=== PATIENT | male | born 1990 | race American Indian/Alaskan Native ===

== ENCOUNTER 2019-12-12 05:12 | Emergency (ER) | payer MEDICAID ==
[2019-12-12] MEDS ORDERED: MVI IV ONE ×4 (05:13)
[2019-12-12] MEDS ORDERED: Pantoprazole 40 MG Vial IV ONE (05:13)
[2019-12-12] MEDS ORDERED: [UNRECOGNIZED DRUG - OTHER] IV ONE ×4 (05:13)
[2019-12-12] MEDS ORDERED: VITAMIN K IV ONE ×4 (05:13)
[2019-12-12] MEDS ORDERED: Ondansetron 4 MG/2 ML SDV IVPUSH ONE (05:13)
[2019-12-12] MEDS ORDERED: FOLIC ACID IV ONE ×4 (05:13)
[2019-12-12] MEDS ORDERED: THIAMINE IV ONE ×4 (05:13)
[2019-12-12] MEDS ORDERED: Folic Acid 50 MG/10 ML MDV ONE (05:40)
[2019-12-12] MEDS ORDERED: MVI, Adult with Vitamin K 10 ML SDV ONE (05:41)
[2019-12-12] MEDS ORDERED: Lactated Ringers 1,000 ML ONE (05:41)
[2019-12-12] MEDS ORDERED: Pantoprazole 40 MG Vial ONE (05:41)
[2019-12-12] MEDS ORDERED: Ondansetron 4 MG/2 ML SDV ONE (05:41)
[2019-12-12] MEDS ORDERED: Thiamine 200 MG/2 ML MDV ONE (05:41)
[2019-12-12 09:18] LABS: ANION GAP 15.7 mEq/L (7-13); CHLORIDE,CL 101 mmol/L (98-107); SODIUM,NA 141 mmol/L (136-145)
== END 2019-12-12 07:10 | disposition home or self-care (01) ==
LOC: DL.ED 05:12
DX: K29.20 Alcoholic gastritis without bleeding (principal); F10.10 Alcohol abuse, uncomplicated
CPT/HCPCS: 36415; 80053; 80307; 82150; 83690; 85025; 85610; 99283; C9113; J2405; J3411; J7120; J3490

== ENCOUNTER 2020-05-16 20:01 | Emergency (ER) | payer MEDICAID ==
[2020-05-16] MEDS ORDERED: Ondansetron 4 MG Tab.DIS PO ONE (20:02)
--- NOTE | 2020-05-16 20:36 | EDM.PDOC ---
ED HPI GENERAL MEDICAL PROBLEM - General Chief Complaint: General Stated Complaint: CHEST PAINS, DEHYDRATED, MUSCLE CRAMPS Time Seen by Provider: 05/16/20 20:30 Source of Information: Reports: Patient History Limitations: Reports: No Limitations - History of Present Illness INITIAL COMMENTS - FREE TEXT/NARRATIVE: ED with c/o anxiety, nausea vomiting alcohol withdrawal, last ingestion 1 liter last chip, at least one liter daily. Partial treatment in remote hx. Longest sobriety in past 6 months has been 7 days while living with dad. No seizure hx. Has had hallucinations in - Related Data Allergies Allergy/AdvReac Type Severity Reaction Status Date / Time No Known Allergies Allergy Verified 05/16/20 20:24 Home Meds: Home Meds . [No Known Home Meds] 07/29/18 [History] CIWAA - CIWAA CIWAA Nausea And Vomitin CIWAA Tremor: 0 - No Tremor CIWAA Paroxysmal Sweats: 1 - Barely Perceptible Sweating, Palms Moist CIWAA Anxiety: 2 CIWAA Agitation: 5 CIWAA Tactile Disturbances: 0 - None CIWAA Auditory Disturbances: 0 - Not Present CIWAA Visual Disturbances: 0 - Not Present CIWAA Headache, Fullness in Head: 0 - Not Present CIWAA Orientation And Clouding Of Sensorium: 0 - Oriented and Can do Serial Additions CIWAA Scale Score: 14 Past Medical History - Past Health History Medical/Surgical History: Denies Medical/Surgical History HEENT History: Reports: Impaired Vision Other HEENT History: wear glasses Cardiovascular History: Reports: None Other Cardiovascular History: born with heart failure Respiratory History: Reports: None Gastrointestinal History: Reports: None Musculoskeletal History: Reports: None Neurological History: Reports: None Psychiatric History: Reports: None Endocrine/Metabolic History: Reports: None Hematologic History: Reports: None Immunologic History: Reports: None Oncologic (Cancer) History: Reports: None Dermatologic History: Reports: None - Infectious Disease History Infectious Disease History: Reports: Chicken Pox - Past Surgical History Head Surgeries/Procedures: Reports: None Social & Family History - Family History Family Medical History: No Pertinent Family History - Caffeine Use Caffeine Use: Reports: None - Living Situation & Occupation Living situation: Reports: with Family ED ROS GENERAL - Review of Systems Review Of Systems: See Below ED EXAM, GENERAL - Physical Exam Exam: See Below Exam Limited By: Altered Mental Status General Appearance: Alert, No Apparent Distress Eye Exam: Bilateral Eye: Nystagmus, PERRL Ears: Normal External Exam, Normal Canal, Normal TMs Nose: Normal Inspection Throat/Mouth: Normal Inspection Head: Atraumatic, Normocephalic Neck: Normal Inspection, Supple, Full Range of Motion Respiratory/Chest: No Respiratory Distress, Lungs Clear, Normal Breath Sounds Cardiovascular: Normal Peripheral Pulses, Regular Rate, Rhythm, No Edema GI/Abdominal: Normal Bowel Sounds, Soft, Non-Tender, No Organomegaly, No Distention Back Exam: Normal Inspection Extremities: Normal Inspection, Normal Range of Motion Neurological: Alert, Oriented, Normal Cognition, Normal Gait Psychiatric: Normal Affect, Normal Mood Skin Exam: Warm, Dry, Intact, Normal Color, No Rash Course - Vital Signs Last Recorded V/S: Last Vital Signs Temp 99.7 F 05/16/20 20:19 Pulse 134 H 05/16/20 20:19 Resp 18 05/16/20 20:19 BP 161/114 H 05/16/20 20:19 Pulse Ox 99 05/16/20 20:19 - Orders/Labs/Meds Orders: Active Orders 24 hr Category Date Time Status Isolation [COMM] Routine Oth 05/16/20 20:25 Active Labs: Laboratory Tests 05/16/20 05/16/20 05/16/20 Range/Units 20:25 21:38 21:38 WBC 10.4 H (5.0-10.0) 10^3/uL RBC 5.19 (4.6-6.2) 10^6/uL Hgb 16.2 (14.0-18.0) g/dL Hct 47.2 (40.0-54.0) % MCV 90.9 D (80-100) fL MCH 31.2 (27.0-34.0) pg MCHC 34.3 (33.0-35.0) g/dL Plt Count 219 (150-450) 10^3/uL Neut % (Auto) 82.1 H (42.2-75.2) % Lymph % (Auto) 9.1 L (20.5-50.1) % Drew % (Auto) 8.5 H (2-8) % Eos % (Auto) 0.0 L (1.0-3.0) % Baso % (Auto) 0.3 (0.0-1.0) % Sodium 136 (136-145) mmol/L Potassium 4.0 (3.5-5.1) mmol/L Chloride 96 L (98-107) mmol/L Carbon Dioxide 29 (21-32) mmol/L Anion Gap 15.0 H (7-13) mEq/L BUN 8 (7-18) mg/dL Creatinine 1.13 (0.70-1.30) mg/dL Est Cr Clr Drug Dosing 113.16 mL/min Estimated GFR (MDRD) > 60 BUN/Creatinine Ratio 7.1 (No establ ref range) Glucose 128 H (74-99) mg/dL Calcium 9.9 (8.5-10.1) mg/dL Total Bilirubin 1.7 H (0.2-1.0) mg/dL AST 206 H (15-37) U/L ALT 133 H (16-63) U/L Alkaline Phosphatase 110 (46-116) U/L Total Protein 8.7 H (6.4-8.2) g/dL Albumin 4.1 (3.4-5.0) g/dL Globulin 4.6 Albumin/Globulin Ratio 0.9 Amylase 28 (25-115) U/L Lipase 122 (73-393) U/L Ethyl Alcohol < 3 (0) mg/dL SARS CoV-2 RNA Rapid AIME Negative (NEGATIVE) Meds: Medications Discontinued Medications Generic Name Dose Route Start Last Admin Trade Name Freq PRN Reason Stop Dose Admin Multivitamins/Minerals 10 ml/ 1,011.2 mls @ 999 mls/hr 05/16/20 21:30 05/16/20 21:45 Folic Acid 1 mg/ Thiamine HCl IV 05/16/20 22:30 999 mls/hr 100 mg/ Lactated Ringer's ONETIME ONE Administration Lorazepam 1 mg 05/16/20 21:30 05/16/20 21:48 Ativan IVPUSH 1 mg BEDTIME PRN Administration Withdrawal Symptoms Ondansetron HCl 4 mg 05/16/20 21:30 05/16/20 21:47 Zofran IVPUSH 05/16/20 21:31 4 mg ONETIME ONE Administration Ondansetron HCl Confirm 05/16/20 22:12 05/16/20 22:47 Zofran Odt Administered 05/16/20 22:13 Not Given Dose 12 mg .ROUTE .STK-MED ONE - Re-Assessments/Exams Free Text/Narrative Re-Assessment/Exam: Reports improvement after fluids and zofran Departure - Departure Time of Disposition: 22:35 Disposition: Home, Self-Care 01 Condition: Good Clinical Impression: Alcohol withdrawal Qualifiers: Complication of substance-induced condition: uncomplicated Qualified Code(s): F10.230 - Alcohol dependence with withdrawal, uncomplicated - Discharge Information *PRESCRIPTION DRUG MONITORING PROGRAM REVIEWED*: No *COPY OF PRESCRIPTION DRUG MONITORING REPORT IN PATIENT TROY: No Instructions: Alcohol Withdrawal Syndrome, [id number] Referrals: PCP,None [Primary Care Provider] - Forms: ED Department Discharge Additional Instructions: follow up with addiction services light activity tomorrow supportive environment for continued sobriety increase fluids light diet , smaller more frequent meals and snacks better tolerated than larger meals follow up if worsening nausea anxiety tremors or hallucinating Sepsis Event Note (ED) - Evaluation Sepsis Screening Result: No Definite Risk - Focused Exam Vital Signs: Vital Signs Temp Pulse Resp BP Pulse Ox 05/16/20 20:19 99.7 F 134 H 18 161/114 H 99 - My Orders Last 24 Hours: My Active Orders 05/16/20 20:25 Isolation [COMM] Routine - Assessment/Plan Last 24 Hours: My Active Orders 05/16/20 20:25 Isolation [COMM] Routine
[2020-05-16] MEDS ORDERED: Ondansetron 4 MG/2 ML SDV IVPUSH ONE (21:30)
[2020-05-16] MEDS ORDERED: MVI, Adult with Vitamin K 10 ML, Folic Acid 1 MG, Thiamine 100 MG in Lactated Ringers 1... IV ONE ×4 (21:30)
[2020-05-16] MEDS ORDERED: LORazepam 2 MG/ML SDV IVPUSH PRN (21:30)
[2020-05-16 22:04] LABS: CHLORIDE,CL 96 mmol/L (98-107); SODIUM,NA 136 mmol/L (136-145)
[2020-05-16] MEDS ORDERED: Ondansetron 4 MG Tab.DIS ONE (22:12)
== END 2020-05-16 22:55 | disposition home or self-care (01) ==
LOC: DL.ED 20:01
DX: F10.230 Alcohol dependence with withdrawal, uncomplicated (principal); R41.82 Altered mental status, unspecified; Z20.828 Contact with and (suspected) exposure to other viral communicable diseases; Y90.0 Blood alcohol level of less than 20 mg/100 ml
CPT/HCPCS: 36415; 80053; 80307; 82150; 83690; 85025; 87804; 96365; 96375; 99283; 99284-25; A9270-GY; J2060; J2405; J3411; J3490; J7120; U0002

== ENCOUNTER 2020-07-06 11:17 | Emergency (ER) | payer MEDICAID ==
[2020-07-06] MEDS ORDERED: MVI, Adult with Vitamin K 10 ML, Thiamine 100 MG, Folic Acid 1 MG in Lactated Ringers 1... IV ONE ×4 (11:41)
[2020-07-06] MEDS ORDERED: Ondansetron 4 MG/2 ML SDV IV ONE (11:41)
[2020-07-06] MEDS ORDERED: LORazepam 2 MG/ML SDV IVPUSH ONE (11:44)
[2020-07-06] MEDS ORDERED: Magnesium Sulfate/D5W 1 GM/100 ML BAG IV ONE (11:46)
--- NOTE | 2020-07-06 11:49 | EDM.PDOC ---
ED HPI GENERAL MEDICAL PROBLEM - General Chief Complaint: General Stated Complaint: VOMITTING, DEHYDRATED, MUSCLE CRAMPS,WITHDRAWAL Time Seen by Provider: 07/06/20 11:47 Source of Information: Reports: Patient, Old Records, RN, RN Notes Reviewed History Limitations: Reports: No Limitations - History of Present Illness INITIAL COMMENTS - FREE TEXT/NARRATIVE: Pt presents to ER from home by POV with c/o alcohol withdrawals. Pt states he drinks at least one liter of vodka daily for several years. He quit briefly once a year or so ago, and was in the hospital with withdrawals but relapsed to heaving drinking shortly thereafter. Pt last drank about 24 hours ago (prior to noon on 07/05/20). Last night he could not sleep and began to have tremors, nausea, sweats, chills, and muscle cramps. He denies hallucinations or seizures. Denies any history of withdrawal seizures in the past. Denies drug use. Pt states he wanted to get sober and find a path to permanent sobriety. Onset: Gradual Onset Date: 07/05/20 Duration: Constant, Getting Worse Location: Reports: Generalized Quality: Reports: Other (Muscle cramps) Severity: Severe Improves with: Reports: None Worsens with: Reports: None Associated Symptoms: Reports: No Other Symptoms Left Upper Abdominal Pain Score (Numeric/FACES): 10 - Related Data Allergies Allergy/AdvReac Type Severity Reaction Status Date / Time No Known Allergies Allergy Verified 07/06/20 11:26 Home Meds: Home Meds . [No Known Home Meds] 07/29/18 [History] Past Medical History - Past Health History Medical/Surgical History: Denies Medical/Surgical History HEENT History: Reports: Impaired Vision Other HEENT History: wear glasses Cardiovascular History: Reports: None Other Cardiovascular History: born with heart failure Respiratory History: Reports: None Gastrointestinal History: Reports: None Musculoskeletal History: Reports: None Neurological History: Reports: None Psychiatric History: Reports: Addiction Endocrine/Metabolic History: Reports: None Hematologic History: Reports: None Immunologic History: Reports: None Oncologic (Cancer) History: Reports: None Dermatologic History: Reports: None - Infectious Disease History Infectious Disease History: Reports: Chicken Pox - Past Surgical History Head Surgeries/Procedures: Reports: None Social & Family History - Family History Family Medical History: No Pertinent Family History - Tobacco Use Tobacco Use Status *Q: Never Tobacco User Second Hand Smoke Exposure: No - Caffeine Use Caffeine Use: Reports: Soda - Recreational Drug Use Recreational Drug Use: No - Living Situation & Occupation Living situation: Reports: with Family ED ROS GENERAL - Review of Systems Review Of Systems: Comprehensive ROS is negative, except as noted in HPI. ED EXAM, GENERAL - Physical Exam Exam: See Below Exam Limited By: No Limitations General Appearance: Alert, Anxious, Obese Eye Exam: Bilateral Eye: EOMI, Normal Inspection, PERRL Ears: Normal External Exam, Hearing Grossly Normal Nose: Normal Inspection, Normal Mucosa, No Blood Throat/Mouth: Normal Lips, Normal Oropharynx, Normal Voice, No Airway Compromise, Other (Dry oral mucosa) Head: Atraumatic, Normocephalic Neck: Normal Inspection, Supple, Non-Tender, Full Range of Motion. No: Lymphadenopathy (L), Lymphadenopathy (R) Respiratory/Chest: No Respiratory Distress, Lungs Clear, Normal Breath Sounds, No Accessory Muscle Use, Chest Non-Tender Cardiovascular: Regular Rate, Rhythm, No Edema, Tachycardia GI/Abdominal: Normal Bowel Sounds, Soft, Non-Tender, Pelvis Stable, Hepatomegaly. No: Guarding, Rigid, Rebound (Male) Exam: Deferred Rectal (Males) Exam: Deferred Back Exam: Normal Inspection Extremities: Normal Inspection, Normal Range of Motion, Non-Tender, Normal Capillary Refill, No Pedal Edema Neurological: Alert, Oriented, CN II-XII Intact, Normal Cognition, Normal Gait, No Motor/Sensory Deficits, Other (B/L upper extremities have a continuous tremor) Psychiatric: Anxious, Flat Affect, Other (No suicidal) Skin Exam: Warm, Dry, Intact, Normal Color, No Rash Course - Vital Signs Last Recorded V/S: Last Vital Signs Temp 97 F 07/06/20 11:19 Pulse 113 H 07/06/20 11:36 Resp 22 H 07/06/20 11:36 BP 155/96 H 07/06/20 11:36 Pulse Ox 96 07/06/20 11:36 - Orders/Labs/Meds Labs: Laboratory Tests 07/06/20 07/06/20 Range/Units 11:38 11:38 WBC 9.2 (5.0-10.0) 10^3/uL RBC 5.34 (4.6-6.2) 10^6/uL Hgb 16.4 (14.0-18.0) g/dL Hct 46.8 (40.0-54.0) % MCV 87.6 D (80-100) fL MCH 30.7 (27.0-34.0) pg MCHC 35.0 (33.0-35.0) g/dL Plt Count 190 (150-450) 10^3/uL Neut % (Auto) 81.8 H (42.2-75.2) % Lymph % (Auto) 11.2 L (20.5-50.1) % Swisher % (Auto) 6.6 (2-8) % Eos % (Auto) 0.1 L (1.0-3.0) % Baso % (Auto) 0.3 (0.0-1.0) % Sodium 139 (136-145) mmol/L Potassium 3.5 (3.5-5.1) mmol/L Chloride 97 L (98-107) mmol/L Carbon Dioxide 22 (21-32) mmol/L Anion Gap 23.5 H (7-13) mEq/L BUN 10 (7-18) mg/dL Creatinine 1.06 (0.70-1.30) mg/dL Est Cr Clr Drug Dosing 119.55 mL/min Estimated GFR (MDRD) > 60 BUN/Creatinine Ratio 9.4 (No establ ref range) Glucose 143 H (74-99) mg/dL Calcium 9.5 (8.5-10.1) mg/dL Magnesium 1.5 L (1.8-2.4) mg/dL Total Bilirubin 1.5 H (0.2-1.0) mg/dL AST 179 H (15-37) U/L ALT 134 H (16-63) U/L Alkaline Phosphatase 103 (46-116) U/L Total Protein 9.1 H (6.4-8.2) g/dL Albumin 4.5 (3.4-5.0) g/dL Globulin 4.6 Albumin/Globulin Ratio 1.0 Ethyl Alcohol 40 (0) mg/dL Meds: Medications Discontinued Medications Generic Name Dose Route Start Last Admin Trade Name Freq PRN Reason Stop Dose Admin Multivitamins/Minerals 10 ml/ 1,011.2 mls @ 999 mls/hr 07/06/20 11:41 07/06/20 11:58 Thiamine HCl 100 mg/ Folic IV 07/06/20 12:41 999 mls/hr Acid 1 mg/ Lactated Ringer's .BOLUS ONE Administration Magnesium Sulfate/Dextrose 1 gm in 100 mls @ 100 mls/hr 07/06/20 11:46 12:36 Magnesium Sulfate In D5w 100 Premix IV 07/06/20 12:45 100 mls/hr ONETIME ONE Administration Lorazepam 2 mg 07/06/20 11:44 07/06/20 11:56 Ativan IVPUSH 07/06/20 11:45 2 mg ONETIME ONE Administration Ondansetron HCl 4 mg 07/06/20 11:41 07/06/20 11:54 Zofran IV 07/06/20 11:42 4 mg ONETIME ONE Administration - Re-Assessments/Exams Free Text/Narrative Re-Assessment/Exam: 07/06/20 12:45 Pt feels much improved follow tx in ER. I offered to admit him for alcohol withdrawals, but he wishes to have some time to think about it and consider going home with medication and outpt treatment for f/u. 07/06/20 12:58 Pt declines admission, and wishes to try to get through this at home. He agrees to return to ER if his withdrawals are uncontrolled or if he drinks alcohol again. Departure - Departure Time of Disposition: 13:00 Disposition: Home, Self-Care 01 Condition: Fair Clinical Impression: Alcohol withdrawal Qualifiers: Complication of substance-induced condition: uncomplicated Qualified Code(s): F10.230 - Alcohol dependence with withdrawal, uncomplicated - Discharge Information *PRESCRIPTION DRUG MONITORING PROGRAM REVIEWED*: Not Applicable *COPY OF PRESCRIPTION DRUG MONITORING REPORT IN PATIENT TROY: Not Applicable Instructions: Alcohol Withdrawal Syndrome, [id number], Finding Treatment for Addiction Forms: ED Department Discharge Additional Instructions: Rx: Lorazepam 1mg *Do not drink alcohol and do not drive while taking this medication. Rx: Zofran 4mg Take over the counter One a day multiple vitamin one tablet once a day, and B- Complex (B-100) vitamin one twice a day. Drink plenty of water. [facility] help with [facility] treatment. [phone]. Return to ER if worse at any time. Sepsis Event Note (ED) - Evaluation Sepsis Screening Result: No Definite Risk - Focused Exam Vital Signs: Vital Signs Temp Pulse Resp BP BP Pulse Ox 07/06/20 11:36 113 H 22 H 155/96 H 96 07/06/20 11:19 97 F 136 H 18 161/128 H 97
[2020-07-06 12:13] LABS: ANION GAP 23.5 mEq/L (7-13); CHLORIDE,CL 97 mmol/L (98-107); SODIUM,NA 139 mmol/L (136-145)
== END 2020-07-06 13:40 | disposition home or self-care (01) ==
LOC: DL.ED 11:17
DX: F10.230 Alcohol dependence with withdrawal, uncomplicated (principal); I50.9 Heart failure, unspecified; Y90.2 Blood alcohol level of 40-59 mg/100 ml
CPT/HCPCS: 36415; 80053; 80307; 83735; 85025; 96365; 96367; 96375; 99283; 99284-25; J2060; J2405; J3411; J3475; J3490; J7120

== ENCOUNTER 2020-09-05 07:08 | Inpatient (IN) | payer MEDICAID ==
[2020-09-05] MEDS ORDERED: Sodium Chloride 0.9% 10 ML Syringe FLUSH PRN (07:16)
--- NOTE | 2020-09-05 07:16 | EDM.PDOCBH ---
ED HPI GENERAL MEDICAL PROBLEM - General Chief Complaint: Drug or Alcohol Abuse Stated Complaint: ALCOHOL WITHDRAWALS Time Seen by Provider: 09/05/20 07:12 Source of Information: Reports: Patient, Old Records, RN, RN Notes Reviewed History Limitations: Reports: No Limitations - History of Present Illness INITIAL COMMENTS - FREE TEXT/NARRATIVE: Pt presents to ER with c/o alcohol withdrawals. He wishes to detox from alcohol and stop drinking. He last drank yesterday. Today he c/o nausea, vomiting, abdominal pain, diarrhea, anxiety, and tremors. He states he has been a heavy da brandy alcohol drinker for several months, and drinking a liter a day for the past week. He has had withdrawals before. Has never had withdrawal seizures. Denies hallucinations. Onset: Gradual Duration: Constant, Getting Worse Location: Reports: Generalized Severity: Severe Improves with: Reports: None Worsens with: Reports: None Associated Symptoms: Reports: No Other Symptoms Generalized Pain Score (Numeric/FACES): 8 - Related Data Allergies Allergy/AdvReac Type Severity Reaction Status Date / Time No Known Allergies Allergy Verified 09/05/20 07:45 Home Meds: Home Meds . [No Known Home Meds] 07/29/18 [History] Past Medical History - Past Health History Medical/Surgical History: Denies Medical/Surgical History HEENT History: Reports: Impaired Vision Other HEENT History: wear glasses Cardiovascular History: Reports: None Other Cardiovascular History: born with heart failure Respiratory History: Reports: None Gastrointestinal History: Reports: None Musculoskeletal History: Reports: None Neurological History: Reports: None Psychiatric History: Reports: Addiction Endocrine/Metabolic History: Reports: None Hematologic History: Reports: None Immunologic History: Reports: None Oncologic (Cancer) History: Reports: None Dermatologic History: Reports: None - Infectious Disease History Infectious Disease History: Reports: Chicken Pox - Past Surgical History Head Surgeries/Procedures: Reports: None Social & Family History - Family History Family Medical History: No Pertinent Family History - Caffeine Use Caffeine Use: Reports: Soda - Alcohol Use Alcohol Use History: Yes Alcohol Use Frequency: Daily - Living Situation & Occupation Living situation: Reports: with Family ED ROS GENERAL - Review of Systems Review Of Systems: Comprehensive ROS is negative, except as noted in HPI. ED EXAM, BEHAVIORAL HEALTH - Physical Exam Exam: See Below Exam Limited By: No Limitations General Appearance: Alert, No Apparent Distress, Anxious, Obese Eye Exam: Bilateral Eye: Normal Inspection (No scleral icterus) Ears: Normal External Exam, Hearing Grossly Normal Nose: Normal Inspection, Normal Mucosa, No Blood Throat/Mouth: Normal Lips, Normal Voice, No Airway Compromise, Other (Dry oral mucosa) Head: Atraumatic, Normocephalic Neck: Normal Inspection, Non-Tender, Full Range of Motion Respiratory/Chest: No Respiratory Distress, Lungs Clear, Normal Breath Sounds, No Accessory Muscle Use, Chest Non-Tender Cardiovascular: Regular Rate, Rhythm, No Edema, Tachycardia GI/Abdominal: Normal Bowel Sounds, Soft, No Distention, Tender (Epigastric), Hepatomegaly. No: Guarding, Rigid, Rebound Back Exam: Normal Inspection Extremities: Normal Inspection, Non-Tender, No Pedal Edema, Normal Capillary Refill Neurological: Alert, CN II-XII Intact, Normal Cognition, Normal Gait, No Motor/Sensory Deficits, Oriented x 3, Tremor Psychiatric: Normal Affect, Depressed Mood. No: Homicidal Thoughts, Suicidal Plan, Suicidal Thoughts, Auditory Hallucinations, Visual Hallucinations Skin Exam: Warm, Dry, Intact, Normal color, No rash. No: Ecchymosis, Jaundice, Petechiae COURSE, BEHAVIORAL HEALTH COMP - Course Vital Signs: Last Vital Signs Temp 95.4 F L 09/05/20 07:25 Pulse 98 09/05/20 08:40 Resp 16 09/05/20 08:40 BP 166/98 H 09/05/20 08:40 Pulse Ox 100 09/05/20 08:40 Orders, Labs, Meds: Active Orders 24 hr Category Date Time Status Peripheral IV Care [RC] . DIRECTED Care 09/05/20 07:17 Active Sodium Chloride 0.9% [Saline Flush] Med 09/05/20 07:16 Active 10 ml FLUSH ASDIRECTED PRN Sodium Chloride 0.9% with KCl [Normal Saline with 40 Med 09/05/20 08:30 Active mEq KCl] 1,000 ml IV ASDIRECTED Peripheral IV Insertion Adult [OM.PC] Stat Oth 09/05/20 07:16 Ordered Laboratory Tests 09/05/20 09/05/20 09/05/20 Range/Units 07:18 07:18 07:18 WBC 14.6 H (5.0-10.0) 10^3/uL RBC 5.09 (4.6-6.2) 10^6/uL Hgb 16.2 (14.0-18.0) g/dL Hct 45.6 (40.0-54.0) % MCV 89.6 (80-100) fL MCH 31.8 (27.0-34.0) pg MCHC 35.5 H (33.0-35.0) g/dL Plt Count 217 (150-450) 10^3/uL Neut % (Auto) 82.9 H (42.2-75.2) % Lymph % (Auto) 11.1 L (20.5-50.1) % Prentiss % (Auto) 5.5 (2-8) % Eos % (Auto) 0.0 L (1.0-3.0) % Baso % (Auto) 0.5 (0.0-1.0) % PT 11.5 (9.0-12.0) SEC INR 1.1 (0.9-1.2) APTT 23.3 (22.0-34.0) SEC ABG pH (7.35-7.45) ABG pCO2 (35-45) mmHg ABG pO2 (70-100) mmHg ABG HCO3 (22-26) mmol/L ABG O2 Saturation (95-100) % ABG Base Excess ((-2)-(+3)) mmol/L Mick Test O2 Delivery Device Sodium 134 L (136-145) mmol/L Potassium 3.0 L (3.5-5.1) mmol/L Chloride 93 L (98-107) mmol/L Carbon Dioxide 17 L (21-32) mmol/L Anion Gap 27.0 H (7-13) mEq/L BUN 9 (7-18) mg/dL Creatinine 0.96 (0.70-1.30) mg/dL Est Cr Clr Drug Dosing 132.01 mL/min Estimated GFR (MDRD) > 60 BUN/Creatinine Ratio 9.4 (No establ ref range) Glucose 151 H (74-99) mg/dL Lactic Acid (0.4-2.0) mmol/L Calcium 8.9 (8.5-10.1) mg/dL Magnesium 1.0 L (1.8-2.4) mg/dL Total Bilirubin 2.5 H (0.2-1.0) mg/dL AST 256 H (15-37) U/L ALT 108 H (16-63) U/L Alkaline Phosphatase 130 H (46-116) U/L Total Protein 9.2 H (6.4-8.2) g/dL Albumin 4.1 (3.4-5.0) g/dL Globulin 5.1 Albumin/Globulin Ratio 0.8 Amylase 34 (25-115) U/L Lipase 165 (73-393) U/L Urine Color (YELLOW) Urine Appearance (CLEAR) Urine pH (5.0-9.0) Ur Specific [place] (1.005-1.030) Urine Protein (NEGATIVE) Urine Glucose (UA) (NEGATIVE) Urine Ketones (NEGATIVE) Urine Occult Blood (NEGATIVE) Urine Nitrite (NEGATIVE) Urine Bilirubin (NEGATIVE) Urine Urobilinogen (0.2-1.0) mg/dL Ur Leukocyte Esterase (NEGATIVE) Urine RBC /HPF Urine WBC (0-5/HPF) /HPF Ur Epithelial Cells (NOT SEEN) /HPF Urine Bacteria (0-FEW/HPF) /HPF Urine Mucus (NOT SEEN) /LPF Urine Opiates Screen (NEGATIVE) Ur Oxycodone Screen (NEGATIVE) Urine Methadone Screen (NEGATIVE) Ur Barbiturates Screen (NEGATIVE) U Tricyclic Antidepress (NEGATIVE) Ur Phencyclidine Scrn (NEGATIVE) Ur Amphetamine Screen (NEGATIVE) U Methamphetamines Scrn (NEGATIVE) Urine MDMA Screen (NEGATIVE) U Benzodiazepines Scrn (NEGATIVE) Urine Cocaine Screen (NEGATIVE) U Marijuana (THC) Screen (NEGATIVE) Ethyl Alcohol (0) mg/dL Ketones SARS CoV-2 RNA Rapid AIME (NEGATIVE) 09/05/20 09/05/20 09/05/20 Range/Units 07:18 07:18 07:18 WBC (5.0-10.0) 10^3/uL RBC (4.6-6.2) 10^6/uL Hgb (14.0-18.0) g/dL Hct (40.0-54.0) % MCV (80-100) fL MCH (27.0-34.0) pg MCHC (33.0-35.0) g/dL Plt Count (150-450) 10^3/uL Neut % (Auto) (42.2-75.2) % Lymph % (Auto) (20.5-50.1) % Prentiss % (Auto) (2-8) % Eos % (Auto) (1.0-3.0) % Baso % (Auto) (0.0-1.0) % PT (9.0-12.0) SEC INR (0.9-1.2) APTT (22.0-34.0) SEC ABG pH (7.35-7.45) ABG pCO2 (35-45) mmHg ABG pO2 (70-100) mmHg ABG HCO3 (22-26) mmol/L ABG O2 Saturation (95-100) % ABG Base Excess ((-2)-(+3)) mmol/L Mick Test O2 Delivery Device Sodium (136-145) mmol/L Potassium (3.5-5.1) mmol/L Chloride (98-107) mmol/L Carbon Dioxide (21-32) mmol/L Anion Gap (7-13) mEq/L BUN (7-18) mg/dL Creatinine (0.70-1.30) mg/dL Est Cr Clr Drug Dosing mL/min Estimated GFR (MDRD) BUN/Creatinine Ratio (No establ ref range) Glucose (74-99) mg/dL Lactic Acid 5.4 H* (0.4-2.0) mmol/L Calcium (8.5-10.1) mg/dL Magnesium (1.8-2.4) mg/dL Total Bilirubin (0.2-1.0) mg/dL AST (15-37) U/L ALT (16-63) U/L Alkaline Phosphatase (46-116) U/L Total Protein (6.4-8.2) g/dL Albumin (3.4-5.0) g/dL Globulin Albumin/Globulin Ratio Amylase (25-115) U/L Lipase (73-393) U/L Urine Color (YELLOW) Urine Appearance (CLEAR) Urine pH (5.0-9.0) Ur Specific [place] (1.005-1.030) Urine Protein (NEGATIVE) Urine Glucose (UA) (NEGATIVE) Urine Ketones (NEGATIVE) Urine Occult Blood (NEGATIVE) Urine Nitrite (NEGATIVE) Urine Bilirubin (NEGATIVE) Urine Urobilinogen (0.2-1.0) mg/dL Ur Leukocyte Esterase (NEGATIVE) Urine RBC /HPF Urine WBC (0-5/HPF) /HPF Ur Epithelial Cells (NOT SEEN) /HPF Urine Bacteria (0-FEW/HPF) /HPF Urine Mucus (NOT SEEN) /LPF Urine Opiates Screen (NEGATIVE) Ur Oxycodone Screen (NEGATIVE) Urine Methadone Screen (NEGATIVE) Ur Barbiturates Screen (NEGATIVE) U Tricyclic Antidepress (NEGATIVE) Ur Phencyclidine Scrn (NEGATIVE) Ur Amphetamine Screen (NEGATIVE) U Methamphetamines Scrn (NEGATIVE) Urine MDMA Screen (NEGATIVE) U Benzodiazepines Scrn (NEGATIVE) Urine Cocaine Screen (NEGATIVE) U Marijuana (THC) Screen (NEGATIVE) Ethyl Alcohol 74 (0) mg/dL Ketones Negative SARS CoV-2 RNA Rapid AIME (NEGATIVE) 09/05/20 09/05/20 09/05/20 Range/Units 08:28 09:36 09:36 WBC (5.0-10.0) 10^3/uL RBC (4.6-6.2) 10^6/uL Hgb (14.0-18.0) g/dL Hct (40.0-54.0) % MCV (80-100) fL MCH (27.0-34.0) pg MCHC (33.0-35.0) g/dL Plt Count (150-450) 10^3/uL Neut % (Auto) (42.2-75.2) % Lymph % (Auto) (20.5-50.1) % P[place]iss % (Auto) (2-8) % Eos % (Auto) (1.0-3.0) % Baso % (Auto) (0.0-1.0) % PT (9.0-12.0) SEC INR (0.9-1.2) APTT (22.0-34.0) SEC ABG pH (7.35-7.45) ABG pCO2 (35-45) mmHg ABG pO2 (70-100) mmHg ABG HCO3 (22-26) mmol/L ABG O2 Saturation (95-100) % ABG Base Excess ((-2)-(+3)) mmol/L Mick Test O2 Delivery Device Sodium (136-145) mmol/L Potassium (3.5-5.1) mmol/L Chloride (98-107) mmol/L Carbon Dioxide (21-32) mmol/L Anion Gap (7-13) mEq/L BUN (7-18) mg/dL Creatinine (0.70-1.30) mg/dL Est Cr Clr Drug Dosing mL/min Estimated GFR (MDRD) BUN/Creatinine Ratio (No establ ref range) Glucose (74-99) mg/dL Lactic Acid (0.4-2.0) mmol/L Calcium (8.5-10.1) mg/dL Magnesium (1.8-2.4) mg/dL Total Bilirubin (0.2-1.0) mg/dL AST (15-37) U/L ALT (16-63) U/L Alkaline Phosphatase (46-116) U/L Total Protein (6.4-8.2) g/dL Albumin (3.4-5.0) g/dL Globulin Albumin/Globulin Ratio Amylase (25-115) U/L Lipase (73-393) U/L Urine Color [place] (YELLOW) Urine Appearance Slightly cloudy (CLEAR) Urine pH 6.5 (5.0-9.0) Ur Specific [place] >= 1.030 (1.005-1.030) Urine Protein >=300 H (NEGATIVE) Urine Glucose (UA) Negative (NEGATIVE) Urine Ketones 40 H (NEGATIVE) Urine Occult Blood Trace-lysed H (NEGATIVE) Urine Nitrite Negative (NEGATIVE) Urine Bilirubin Moderate H (NEGATIVE) Urine Urobilinogen 4.0 H (0.2-1.0) mg/dL Ur Leukocyte Esterase Negative (NEGATIVE) Urine RBC 0-5 /HPF Urine WBC 0-5 (0-5/HPF) /HPF Ur Epithelial Cells Rare (NOT SEEN) /HPF Urine Bacteria Rare (0-FEW/HPF) /HPF Urine Mucus Moderate H (NOT SEEN) /LPF Urine Opiates Screen Negative (NEGATIVE) Ur Oxycodone Screen Negative (NEGATIVE) Urine Methadone Screen Negative (NEGATIVE) Ur Barbiturates Screen Negative (NEGATIVE) U Tricyclic Antidepress Negative (NEGATIVE) Ur Phencyclidine Scrn Negative (NEGATIVE) Ur Amphetamine Screen Negative (NEGATIVE) U Methamphetamines Scrn Negative (NEGATIVE) Urine MDMA Screen Negative (NEGATIVE) U Benzodiazepines Scrn Negative (NEGATIVE) Urine Cocaine Screen Negative (NEGATIVE) U Marijuana (THC) Screen Negative (NEGATIVE) Ethyl Alcohol (0) mg/dL Ketones SARS CoV-2 RNA Rapid AIME Negative (NEGATIVE) 09/05/20 Range/Units 10:30 WBC (5.0-10.0) 10^3/uL RBC (4.6-6.2) 10^6/uL Hgb (14.0-18.0) g/dL Hct (40.0-54.0) % MCV (80-100) fL MCH (27.0-34.0) pg MCHC (33.0-35.0) g/dL Plt Count (150-450) 10^3/uL Neut % (Auto) (42.2-75.2) % Lymph % (Auto) (20.5-50.1) % [place] % (Auto) (2-8) % Eos % (Auto) (1.0-3.0) % Baso % (Auto) (0.0-1.0) % PT (9.0-12.0) SEC INR (0.9-1.2) APTT (22.0-34.0) SEC ABG pH 7.47 H (7.35-7.45) ABG pCO2 32 L (35-45) mmHg ABG pO2 78 (70-100) mmHg ABG HCO3 22.7 (22-26) mmol/L ABG O2 Saturation 95 (95-100) % ABG Base Excess 0 ((-2)-(+3)) mmol/L Mick Test na O2 Delivery Device Room air Sodium (136-145) mmol/L Potassium (3.5-5.1) mmol/L Chloride (98-107) mmol/L Carbon Dioxide (21-32) mmol/L Anion Gap (7-13) mEq/L BUN (7-18) mg/dL Creatinine (0.70-1.30) mg/dL Est Cr Clr Drug Dosing mL/min Estimated GFR (MDRD) BUN/Creatinine Ratio (No establ ref range) Glucose (74-99) mg/dL Lactic Acid (0.4-2.0) mmol/L Calcium (8.5-10.1) mg/dL Magnesium (1.8-2.4) mg/dL Total Bilirubin (0.2-1.0) mg/dL AST (15-37) U/L ALT (16-63) U/L Alkaline Phosphatase (46-116) U/L Total Protein (6.4-8.2) g/dL Albumin (3.4-5.0) g/dL Globulin Albumin/Globulin Ratio Amylase (25-115) U/L Lipase (73-393) U/L Urine Color (YELLOW) Urine Appearance (CLEAR) Urine pH (5.0-9.0) Ur Specific [place] (1.005-1.030) Urine Protein (NEGATIVE) Urine Glucose (UA) (NEGATIVE) Urine Ketones (NEGATIVE) Urine Occult Blood (NEGATIVE) Urine Nitrite (NEGATIVE) Urine Bilirubin (NEGATIVE) Urine Urobilinogen (0.2-1.0) mg/dL Ur Leukocyte Esterase (NEGATIVE) Urine RBC /HPF Urine WBC (0-5/HPF) /HPF Ur Epithelial Cells (NOT SEEN) /HPF Urine Bacteria (0-FEW/HPF) /HPF Urine Mucus (NOT SEEN) /LPF Urine Opiates Screen (NEGATIVE) Ur Oxycodone Screen (NEGATIVE) Urine Methadone Screen (NEGATIVE) Ur Barbiturates Screen (NEGATIVE) U Tricyclic Antidepress (NEGATIVE) Ur Phencyclidine Scrn (NEGATIVE) Ur Amphetamine Screen (NEGATIVE) U Methamphetamines Scrn (NEGATIVE) Urine MDMA Screen (NEGATIVE) U Benzodiazepines Scrn (NEGATIVE) Urine Cocaine Screen (NEGATIVE) U Marijuana (THC) Screen (NEGATIVE) Ethyl Alcohol (0) mg/dL Ketones SARS CoV-2 RNA Rapid AIME (NEGATIVE) Medical Clearance: 09/05/20 10:51 Pt with moderately severe alcohol withdrawals, and also with hypomagnesemia and hypokalemia. Pt would like to undergo medical detox and f/u with behavioral health upon discharge for assistance with placement in an alcohol treatment program. Departure - Departure Time of Disposition: 11:12 (admitted to Dr. Cochran) Disposition: Admitted As Inpatient 67 Condition: Fair Clinical Impression: Alcohol abuse, Hypomagnesemia, Hypokalemia, Dehydration Alcohol withdrawal Qualifiers: Complication of substance-induced condition: with unspecified complication Qualified Code(s): F10.239 - Alcohol dependence with withdrawal, unspecified - Discharge Information *PRESCRIPTION DRUG MONITORING PROGRAM REVIEWED*: Not Applicable *COPY OF PRESCRIPTION DRUG MONITORING REPORT IN PATIENT TROY: Not Applicable Forms: ED Department Discharge Sepsis Event Note (ED) - Focused Exam Vital Signs: Vital Signs Temp Pulse Resp BP Pulse Ox 09/05/20 08:40 98 16 166/98 H 100 09/05/20 07:25 95.4 F L 132 H 24 H 164/104 H 96 - My Orders Last 24 Hours: My Active Orders 09/05/20 07:16 Sodium Chloride 0.9% [Saline Flush] 10 ml FLUSH ASDIRECTED PRN Peripheral IV Insertion Adult [OM.PC] Stat 09/05/20 07:17 Peripheral IV Care [RC] . DIRECTED 09/05/20 08:30 Sodium Chloride 0.9% with KCl [Normal Saline with 40 mEq KCl] 1,000 ml IV ASDIRECTED - Assessment/Plan Last 24 Hours: My Active Orders 09/05/20 07:16 Sodium Chloride 0.9% [Saline Flush] 10 ml FLUSH ASDIRECTED PRN Peripheral IV Insertion Adult [OM.PC] Stat 09/05/20 07:17 Peripheral IV Care [RC] . DIRECTED 09/05/20 08:30 Sodium Chloride 0.9% with KCl [Normal Saline with 40 mEq KCl] 1,000 ml IV ASDIRECTED
[2020-09-05] MEDS ORDERED: Pantoprazole 40 MG Vial IVPUSH ONE (07:17)
[2020-09-05] MEDS ORDERED: LORazepam 2 MG/ML SDV IVPUSH ONE ×2 (07:17→10:05)
[2020-09-05] MEDS ORDERED: Ondansetron 4 MG/2 ML SDV IV ONE (07:17)
[2020-09-05] MEDS ORDERED: MVI, Adult with Vitamin K 10 ML, Thiamine 100 MG, Folic Acid 1 MG in Lactated Ringers 1... IV ONE ×4 (07:17)
[2020-09-05 07:46] LABS: PTT,PARTIAL THROMBOPLSTIN TIME 23.3 SEC (22.0-34.0)
[2020-09-05 07:56] LABS: CHLORIDE,CL 93 mmol/L (98-107); SODIUM,NA 134 mmol/L (136-145)
[2020-09-05] MEDS ORDERED: Magnesium Sulfate/Water 2 GM/50 ML BAG IV ONE (08:17)
[2020-09-05] MEDS ORDERED: Sodium Chloride 0.9% with KCl 1,000 ML IV SCH (08:30)
[2020-09-05 10:34] LABS: BASE EXCESS ARTERIAL 0 mmol/L ((-2)-(+3)); BICARBONATE,ARTERIAL 22.7 mmol/L (22-26); O2 DELIVERY DEVICE ROOM AIR; O2 SATURATION ARTERIAL 95 % (95-100); PCO2 ARTERIAL 32 mmHg (35-45); PO2 ARTERIAL 78 mmHg (70-100)
[2020-09-05] MEDS: Sodium Chloride 0.9% 1,000 ML IV SCH ×2 (12:56→19:15)
[2020-09-05] MEDS: chlordiazePOXIDE 25 MG Cap PO SCH ×2 (13:28→17:16)
[2020-09-05 13:41] LABS: ANION GAP 15.5 mEq/L (7-13); CHLORIDE,CL 100 mmol/L (98-107); SODIUM,NA 137 mmol/L (136-145)
--- NOTE | 2020-09-05 15:00 | PCM.HP ---
H&P History of Present Illness - General Date of Service: 09/05/20 Admit Problem/Dx: Admission Diagnosis/Problem Admission Diagnosis/Problem Alcohol withdrawal syndrome - History of Present Illness Initial Comments - Free Text/Narative: 30M w/ pmh alcoholism p/w nausea, vomiting, tremors. Pt habitually drinks ne [place] a liter of liquor per day. Last ingestion yesterday. He came in w/ nausea, vomiting, headaches, abdominal pain, tremors. He is expressing wish to detox and rehabilitate. Generalized Pain Score (Numeric/FACES): 8 - Related Data Allergies/Adverse Reactions: Allergies Allergy/AdvReac Type Severity Reaction Status Date / Time No Known Allergies Allergy Verified 09/05/20 07:45 Home Medications: Home Meds . [No Known Home Meds] 07/29/18 [History] Past Medical History - Past Health History Medical/Surgical History: Denies Medical/Surgical History HEENT History: Reports: Impaired Vision Other HEENT History: wear glasses Cardiovascular History: Reports: None Other Cardiovascular History: born with heart failure Respiratory History: Reports: None Gastrointestinal History: Reports: None Genitourinary History: Reports: None Musculoskeletal History: Reports: None Neurological History: Reports: None Psychiatric History: Reports: Addiction Endocrine/Metabolic History: Reports: None Hematologic History: Reports: None Immunologic History: Reports: None Oncologic (Cancer) History: Reports: None Dermatologic History: Reports: None - Infectious Disease History Infectious Disease History: Reports: Chicken Pox - Past Surgical History Head Surgeries/Procedures: Reports: None Social & Family History - Family History Family Medical History: No Pertinent Family History - Tobacco Use Tobacco Use Status *Q: Never Tobacco User - Caffeine Use Caffeine Use: Reports: Coffee, Soda - Alcohol Use Days Per Week of Alcohol Use: 7 Number of Drinks Per Day: 16 Total Drinks Per Week: 112 Date of Last Drink: 09/04/20 - Recreational Drug Use Recreational Drug Use: No - Living Situation & Occupation Living situation: Reports: with Family H&P Review of Systems - Review of Systems: Review Of Systems: See Below General: Reports: Diaphoresis. Denies: Fever, Chills HEENT: Reports: Headaches Pulmonary: Denies: Shortness of Breath, Wheezing Cardiovascular: Reports: Palpitations. Denies: Chest Pain Gastrointestinal: Reports: Abdominal Pain, Diarrhea. Denies: Distension Genitourinary: Denies: Dysuria Musculoskeletal: Denies: Neck Pain Skin: Reports: Diaphoresis Psychiatric: Reports: Anxiety Neurological: Reports: Dizziness Hematologic/Lymphatic: Denies: Easy Bleeding Exam - Exam Exam: See Below - Vital Signs Vital Signs: Last Vital Signs Temp 98.2 F 09/05/20 11:47 Pulse 118 H 09/05/20 11:47 Resp 20 09/05/20 11:47 BP 158/89 H 09/05/20 11:47 Pulse Ox 96 09/05/20 11:47 Weight: 302 lb 6.4 oz - Exam Quality Assessment: No: Supplemental Oxygen General: Alert, Oriented, Cooperative HEENT: Conjunctiva Clear Neck: Supple Lungs: Clear to Auscultation, Normal Respiratory Effort Cardiovascular: Regular Rate, Regular Rhythm, Tachycardia GI/Abdominal Exam: Normal Bowel Sounds, Soft, Non-Tender, No Distention Back Exam: Normal Inspection Extremities: No Pedal Edema Skin: Warm, Dry, Moist Neurological: Cranial Nerves Intact Neuro Extensive - Mental Status: Alert, Oriented x3, Normal Mood/Affect Neuro Extensive - Motor, Sensory, Reflexes: Tremor (minimal) Psychiatric: Alert, Anxious - Patient Data Lab Results Last 24 hrs: Laboratory Results - last 24 hr 09/05/20 09/05/20 09/05/20 Range/Units 07:18 07:18 07:18 WBC 14.6 H (5.0-10.0) 10^3/uL RBC 5.09 (4.6-6.2) 10^6/uL Hgb 16.2 (14.0-18.0) g/dL Hct 45.6 (40.0-54.0) % MCV 89.6 (80-100) fL MCH 31.8 (27.0-34.0) pg MCHC 35.5 H (33.0-35.0) g/dL Plt Count 217 (150-450) 10^3/uL Neut % (Auto) 82.9 H (42.2-75.2) % Lymph % (Auto) 11.1 L (20.5-50.1) % [place] % (Auto) 5.5 (2-8) % Eos % (Auto) 0.0 L (1.0-3.0) % Baso % (Auto) 0.5 (0.0-1.0) % PT 11.5 (9.0-12.0) SEC INR 1.1 (0.9-1.2) APTT 23.3 (22.0-34.0) SEC ABG pH (7.35-7.45) ABG pCO2 (35-45) mmHg ABG pO2 (70-100) mmHg ABG HCO3 (22-26) mmol/L ABG O2 Saturation (95-100) % ABG Base Excess ((-2)-(+3)) mmol/L Mick Test O2 Delivery Device Sodium 134 L (136-145) mmol/L Potassium 3.0 L (3.5-5.1) mmol/L Chloride 93 L (98-107) mmol/L Carbon Dioxide 17 L (21-32) mmol/L Anion Gap 27.0 H (7-13) mEq/L BUN 9 (7-18) mg/dL Creatinine 0.96 (0.70-1.30) mg/dL Est Cr Clr Drug Dosing 132.01 mL/min Estimated GFR (MDRD) > 60 BUN/Creatinine Ratio 9.4 (No establ ref range) Glucose 151 H (74-99) mg/dL Lactic Acid (0.4-2.0) mmol/L Calcium 8.9 (8.5-10.1) mg/dL Phosphorus (2.6-4.7) mg/dL Magnesium 1.0 L (1.8-2.4) mg/dL Total Bilirubin 2.5 H (0.2-1.0) mg/dL AST 256 H (15-37) U/L ALT 108 H (16-63) U/L Alkaline Phosphatase 130 H (46-116) U/L Total Protein 9.2 H (6.4-8.2) g/dL Albumin 4.1 (3.4-5.0) g/dL Globulin 5.1 Albumin/Globulin Ratio 0.8 Amylase 34 (25-115) U/L Lipase 165 (73-393) U/L Urine Color (YELLOW) Urine Appearance (CLEAR) Urine pH (5.0-9.0) Ur Specific [place] (1.005-1.030) Urine Protein (NEGATIVE) Urine Glucose (UA) (NEGATIVE) Urine Ketones (NEGATIVE) Urine Occult Blood (NEGATIVE) Urine Nitrite (NEGATIVE) Urine Bilirubin (NEGATIVE) Urine Urobilinogen (0.2-1.0) mg/dL Ur Leukocyte Esterase (NEGATIVE) Urine RBC /HPF Urine WBC (0-5/HPF) /HPF Ur Epithelial Cells (NOT SEEN) /HPF Urine Bacteria (0-FEW/HPF) /HPF Urine Mucus (NOT SEEN) /LPF Urine Opiates Screen (NEGATIVE) Ur Oxycodone Screen (NEGATIVE) Urine Methadone Screen (NEGATIVE) Ur Barbiturates Screen (NEGATIVE) U Tricyclic Antidepress (NEGATIVE) Ur Phencyclidine Scrn (NEGATIVE) Ur Amphetamine Screen (NEGATIVE) U Methamphetamines Scrn (NEGATIVE) Urine MDMA Screen (NEGATIVE) U Benzodiazepines Scrn (NEGATIVE) Urine Cocaine Screen (NEGATIVE) U Marijuana (THC) Screen (NEGATIVE) Ethyl Alcohol (0) mg/dL Ketones SARS CoV-2 RNA Rapid AIME (NEGATIVE) 09/05/20 09/05/20 09/05/20 Range/Units 07:18 07:18 07:18 WBC (5.0-10.0) 10^3/uL RBC (4.6-6.2) 10^6/uL Hgb (14.0-18.0) g/dL Hct (40.0-54.0) % MCV (80-100) fL MCH (27.0-34.0) pg MCHC (33.0-35.0) g/dL Plt Count (150-450) 10^3/uL Neut % (Auto) (42.2-75.2) % Lymph % (Auto) (20.5-50.1) % [place] % (Auto) (2-8) % Eos % (Auto) (1.0-3.0) % Baso % (Auto) (0.0-1.0) % PT (9.0-12.0) SEC INR (0.9-1.2) APTT (22.0-34.0) SEC ABG pH (7.35-7.45) ABG pCO2 (35-45) mmHg ABG pO2 (70-100) mmHg ABG HCO3 (22-26) mmol/L ABG O2 Saturation (95-100) % ABG Base Excess ((-2)-(+3)) mmol/L Mick Test O2 Delivery Device Sodium (136-145) mmol/L Potassium (3.5-5.1) mmol/L Chloride (98-107) mmol/L Carbon Dioxide (21-32) mmol/L Anion Gap (7-13) mEq/L BUN (7-18) mg/dL Creatinine (0.70-1.30) mg/dL Est Cr Clr Drug Dosing mL/min Estimated GFR (MDRD) BUN/Creatinine Ratio (No establ ref range) Glucose (74-99) mg/dL Lactic Acid 5.4 H* (0.4-2.0) mmol/L Calcium (8.5-10.1) mg/dL Phosphorus (2.6-4.7) mg/dL Magnesium (1.8-2.4) mg/dL Total Bilirubin (0.2-1.0) mg/dL AST (15-37) U/L ALT (16-63) U/L Alkaline Phosphatase (46-116) U/L Total Protein (6.4-8.2) g/dL Albumin (3.4-5.0) g/dL Globulin Albumin/Globulin Ratio Amylase (25-115) U/L Lipase (73-393) U/L Urine Color (YELLOW) Urine Appearance (CLEAR) Urine pH (5.0-9.0) Ur Specific [place] (1.005-1.030) Urine Protein (NEGATIVE) Urine Glucose (UA) (NEGATIVE) Urine Ketones (NEGATIVE) Urine Occult Blood (NEGATIVE) Urine Nitrite (NEGATIVE) Urine Bilirubin (NEGATIVE) Urine Urobilinogen (0.2-1.0) mg/dL Ur Leukocyte Esterase (NEGATIVE) Urine RBC /HPF Urine WBC (0-5/HPF) /HPF Ur Epithelial Cells (NOT SEEN) /HPF Urine Bacteria (0-FEW/HPF) /HPF Urine Mucus (NOT SEEN) /LPF Urine Opiates Screen (NEGATIVE) Ur Oxycodone Screen (NEGATIVE) Urine Methadone Screen (NEGATIVE) Ur Barbiturates Screen (NEGATIVE) U Tricyclic Antidepress (NEGATIVE) Ur Phencyclidine Scrn (NEGATIVE) Ur Amphetamine Screen (NEGATIVE) U Methamphetamines Scrn (NEGATIVE) Urine MDMA Screen (NEGATIVE) U Benzodiazepines Scrn (NEGATIVE) Urine Cocaine Screen (NEGATIVE) U Marijuana (THC) Screen (NEGATIVE) Ethyl Alcohol 74 (0) mg/dL Ketones Negative SARS CoV-2 RNA Rapid AIME (NEGATIVE) 09/05/20 09/05/20 09/05/20 Range/Units 08:28 09:36 09:36 WBC (5.0-10.0) 10^3/uL RBC (4.6-6.2) 10^6/uL Hgb (14.0-18.0) g/dL Hct (40.0-54.0) % MCV (80-100) fL MCH (27.0-34.0) pg MCHC (33.0-35.0) g/dL Plt Count (150-450) 10^3/uL Neut % (Auto) (42.2-75.2) % Lymph % (Auto) (20.5-50.1) % [place] % (Auto) (2-8) % Eos % (Auto) (1.0-3.0) % Baso % (Auto) (0.0-1.0) % PT (9.0-12.0) SEC INR (0.9-1.2) APTT (22.0-34.0) SEC ABG pH (7.35-7.45) ABG pCO2 (35-45) mmHg ABG pO2 (70-100) mmHg ABG HCO3 (22-26) mmol/L ABG O2 Saturation (95-100) % ABG Base Excess ((-2)-(+3)) mmol/L Mick Test O2 Delivery Device Sodium (136-145) mmol/L Potassium (3.5-5.1) mmol/L Chloride (98-107) mmol/L Carbon Dioxide (21-32) mmol/L Anion Gap (7-13) mEq/L BUN (7-18) mg/dL Creatinine (0.70-1.30) mg/dL Est Cr Clr Drug Dosing mL/min Estimated GFR (MDRD) BUN/Creatinine Ratio (No establ ref range) Glucose (74-99) mg/dL Lactic Acid (0.4-2.0) mmol/L Calcium (8.5-10.1) mg/dL Phosphorus (2.6-4.7) mg/dL Magnesium (1.8-2.4) mg/dL Total Bilirubin (0.2-1.0) mg/dL AST (15-37) U/L ALT (16-63) U/L Alkaline Phosphatase (46-116) U/L Total Protein (6.4-8.2) g/dL Albumin (3.4-5.0) g/dL Globulin Albumin/Globulin Ratio Amylase (25-115) U/L Lipase (73-393) U/L Urine Color [place] (YELLOW) Urine Appearance Slightly cloudy (CLEAR) Urine pH 6.5 (5.0-9.0) Ur Specific [place] >= 1.030 (1.005-1.030) Urine Protein >=300 H (NEGATIVE) Urine Glucose (UA) Negative (NEGATIVE) Urine Ketones 40 H (NEGATIVE) Urine Occult Blood Trace-lysed H (NEGATIVE) Urine Nitrite Negative (NEGATIVE) Urine Bilirubin Moderate H (NEGATIVE) Urine Urobilinogen 4.0 H (0.2-1.0) mg/dL Ur Leukocyte Esterase Negative (NEGATIVE) Urine RBC 0-5 /HPF Urine WBC 0-5 (0-5/HPF) /HPF Ur Epithelial Cells Rare (NOT SEEN) /HPF Urine Bacteria Rare (0-FEW/HPF) /HPF Urine Mucus Moderate H (NOT SEEN) /LPF Urine Opiates Screen Negative (NEGATIVE) Ur Oxycodone Screen Negative (NEGATIVE) Urine Methadone Screen Negative (NEGATIVE) Ur Barbiturates Screen Negative (NEGATIVE) U Tricyclic Antidepress Negative (NEGATIVE) Ur Phencyclidine Scrn Negative (NEGATIVE) Ur Amphetamine Screen Negative (NEGATIVE) U Methamphetamines Scrn Negative (NEGATIVE) Urine MDMA Screen Negative (NEGATIVE) U Benzodiazepines Scrn Negative (NEGATIVE) Urine Cocaine Screen Negative (NEGATIVE) U Marijuana (THC) Screen Negative (NEGATIVE) Ethyl Alcohol (0) mg/dL Ketones SARS CoV-2 RNA Rapid AIME Negative (NEGATIVE) 09/05/20 09/05/20 09/05/20 Range/Units 10:30 13:10 13:10 WBC (5.0-10.0) 10^3/uL RBC (4.6-6.2) 10^6/uL Hgb (14.0-18.0) g/dL Hct (40.0-54.0) % MCV (80-100) fL MCH (27.0-34.0) pg MCHC (33.0-35.0) g/dL Plt Count (150-450) 10^3/uL Neut % (Auto) (42.2-75.2) % Lymph % (Auto) (20.5-50.1) % [place] % (Auto) (2-8) % Eos % (Auto) (1.0-3.0) % Baso % (Auto) (0.0-1.0) % PT (9.0-12.0) SEC INR (0.9-1.2) APTT (22.0-34.0) SEC ABG pH 7.47 H (7.35-7.45) ABG pCO2 32 L (35-45) mmHg ABG pO2 78 (70-100) mmHg ABG HCO3 22.7 (22-26) mmol/L ABG O2 Saturation 95 (95-100) % ABG Base Excess 0 ((-2)-(+3)) mmol/L Mick Test na O2 Delivery Device Room air Sodium 137 (136-145) mmol/L Potassium 4.5 D (3.5-5.1) mmol/L Chloride 100 (98-107) mmol/L Carbon Dioxide 26 (21-32) mmol/L Anion Gap 15.5 H (7-13) mEq/L BUN 9 (7-18) mg/dL Creatinine 0.84 (0.70-1.30) mg/dL Est Cr Clr Drug Dosing 150.86 mL/min Estimated GFR (MDRD) > 60 BUN/Creatinine Ratio (No establ ref range) Glucose 103 H (74-99) mg/dL Lactic Acid 0.8 (0.4-2.0) mmol/L Calcium 8.9 (8.5-10.1) mg/dL Phosphorus 3.1 (2.6-4.7) mg/dL Magnesium 1.8 (1.8-2.4) mg/dL Total Bilirubin (0.2-1.0) mg/dL AST (15-37) U/L ALT (16-63) U/L Alkaline Phosphatase (46-116) U/L Total Protein (6.4-8.2) g/dL Albumin (3.4-5.0) g/dL Globulin Albumin/Globulin Ratio Amylase (25-115) U/L Lipase (73-393) U/L Urine Color (YELLOW) Urine Appearance (CLEAR) Urine pH (5.0-9.0) Ur Specific [place] (1.005-1.030) Urine Protein (NEGATIVE) Urine Glucose (UA) (NEGATIVE) Urine Ketones (NEGATIVE) Urine Occult Blood (NEGATIVE) Urine Nitrite (NEGATIVE) Urine Bilirubin (NEGATIVE) Urine Urobilinogen (0.2-1.0) mg/dL Ur Leukocyte Esterase (NEGATIVE) Urine RBC /HPF Urine WBC (0-5/HPF) /HPF Ur Epithelial Cells (NOT SEEN) /HPF Urine Bacteria (0-FEW/HPF) /HPF Urine Mucus (NOT SEEN) /LPF Urine Opiates Screen (NEGATIVE) Ur Oxycodone Screen (NEGATIVE) Urine Methadone Screen (NEGATIVE) Ur Barbiturates Screen (NEGATIVE) U Tricyclic Antidepress (NEGATIVE) Ur Phencyclidine Scrn (NEGATIVE) Ur Amphetamine Screen (NEGATIVE) U Methamphetamines Scrn (NEGATIVE) Urine MDMA Screen (NEGATIVE) U Benzodiazepines Scrn (NEGATIVE) Urine Cocaine Screen (NEGATIVE) U Marijuana (THC) Screen (NEGATIVE) Ethyl Alcohol (0) mg/dL Ketones SARS CoV-2 RNA Rapid AIME (NEGATIVE) Result Diagrams: 09/05/20 07:18 09/05/20 13:10 Problem List Initiated/Reviewed/Updated: No Orders Last 24hrs: Active Orders 24 hr Category Date Time Status Admission Diagnosis [ADT] Routine ADT 09/05/20 11:26 Ordered Patient Status [ADT] Routine ADT 09/05/20 11:26 Active Patient Status [ADT] Routine ADT 09/05/20 12:41 Active Influenza Vaccine Charge [RC] .DISCHARGE Care 09/05/20 12:24 Active Oxygen Therapy [RC] PRN Care 09/05/20 12:41 Active Up With Assistance [RC] ASDIRECTED Care 09/05/20 12:41 Active VTE/DVT Education [RC] PER UNIT ROUTINE Care 09/05/20 12:41 Active Vital Signs [RC] Q4H Care 09/05/20 12:41 Active Regular Diet [DIET] Diet 09/05/20 Dinner Active BASIC METABOLIC PANEL,BMP [CHEM] AM Lab 09/06/20 05:11 Ordered HEPATIC FUNCTION PANEL,HFP [CHEM] AM Lab 09/06/20 05:11 Ordered MAGNESIUM [CHEM] AM Lab 09/06/20 05:11 Ordered PHOSPHORUS [CHEM] AM Lab 09/06/20 05:11 Ordered Enoxaparin [Lovenox] Med 09/06/20 09:00 Active 40 mg SUBCUT DAILY LORazepam [Ativan] Med 09/05/20 12:41 Active 2 mg IVPUSH Q2H PRN Pharmacy to Dose - InFluenza V [Pharmacy to Dose - Med 09/06/20 09:00 Active InFluenza Vaccine] 1 each IM DAILY Sodium Chloride 0.9% [Normal Saline] 1,000 ml Med 09/05/20 12:45 Active IV ASDIRECTED Sodium Chloride 0.9% [Saline Flush] Med 09/05/20 07:16 Active 10 ml FLUSH ASDIRECTED PRN Sodium Chloride 0.9% with KCl [Normal Saline with 40 Med 09/05/20 08:30 Active mEq KCl] 1,000 ml IV ASDIRECTED chlordiazePOXIDE [Librium] Med 09/05/20 13:00 Active 75 mg PO Q6HR Peripheral IV Insertion Adult [OM.PC] Stat Oth 09/05/20 07:16 Ordered Resuscitation Status Routine Resus Stat 09/05/20 12:41 Ordered Assessment/Plan Comment:: #acute alcohol w/drawal - symptoms well controlled s/p total 6 mg IV ativan in the ED - start librium 75 mg q6h and prn ativan - IVF #alcohol dependence and abuse - counseled on abstinence and need for inpt rehab PPX - LMWH Full code
[2020-09-05] MEDS: LORazepam 2 MG/ML SDV IVPUSH PRN (21:35)
[2020-09-06] MEDS: chlordiazePOXIDE 25 MG Cap PO SCH ×3 (00:03→22:09)
[2020-09-06 07:10] LABS: ANION GAP 13.3 mEq/L (7-13); CHLORIDE,CL 101 mmol/L (98-107); SODIUM,NA 138 mmol/L (136-145)
[2020-09-06] MEDS: Enoxaparin 40 MG/0.4 ML Syringe SUBCUT SCH (08:23)
[2020-09-06] MEDS ORDERED: Potassium Chloride 10 MEQ Tab.ER PO ONE (08:53)
[2020-09-06] MEDS ORDERED: Magnesium Sulfate/Water 2 GM/50 ML BAG IV ONE (08:53)
--- NOTE | 2020-09-06 11:52 | PCM.PN ---
- General Info Date of Service: 09/06/20 Admission Dx/Problem (Free Text): Feels good. No tremors. Not anxious. - Patient Data Vitals - Most Recent: Last Vital Signs Temp 96.7 F L 09/06/20 08:40 Pulse 102 H 09/06/20 08:40 Resp 20 09/06/20 08:40 BP 155/104 H 09/06/20 08:40 Pulse Ox 98 09/06/20 08:40 Weight - Most Recent: 302 lb 6.4 oz I&O - Last 24 Hours: Intake & Output 09/05/20 09/06/20 09/06/20 22:59 06:59 14:59 Intake Total 1207 400 Balance 1207 400 Lab Results Last 24 Hours: Laboratory Results - last 24 hr 09/05/20 09/05/20 09/06/20 Range/Units 13:10 13:10 06:24 Sodium 137 138 (136-145) mmol/L Potassium 4.5 D 3.3 L (3.5-5.1) mmol/L Chloride 100 101 (98-107) mmol/L Carbon Dioxide 26 27 (21-32) mmol/L Anion Gap 15.5 H 13.3 H (7-13) mEq/L BUN 9 5 L (7-18) mg/dL Creatinine 0.84 0.83 (0.70-1.30) mg/dL Est Cr Clr Drug Dosing 150.86 152.68 mL/min Estimated GFR (MDRD) > 60 > 60 Glucose 103 H 97 (74-99) mg/dL Lactic Acid 0.8 (0.4-2.0) mmol/L Calcium 8.9 8.3 L (8.5-10.1) mg/dL Phosphorus 3.1 3.5 (2.6-4.7) mg/dL Magnesium 1.8 1.7 L (1.8-2.4) mg/dL Total Bilirubin 2.7 H (0.2-1.0) mg/dL Direct Bilirubin 1.4 H (0.0-0.2) mg/dL Indirect Bilirubin 1.3 AST 148 H (15-37) U/L ALT 70 H (16-63) U/L Alkaline Phosphatase 90 (46-116) U/L Total Protein 7.1 (6.4-8.2) g/dL Albumin 3.1 L (3.4-5.0) g/dL Globulin 4.0 Albumin/Globulin Ratio 0.78 Med Orders - Current: Current Medications Chlordiazepoxide HCl (Chlordiazepoxide 25 Mg Cap) 75 mg PO Q8H [facility] Enoxaparin Sodium (Enoxaparin 40 Mg/0.4 Ml Syringe) 40 mg SUBCUT DAILY [facility] Last Admin: 09/06/20 08:23 Dose: 40 mg Documented by: Sodium Chloride (Normal Saline) 1,000 mls @ 150 mls/hr IV ASDIRECTED [facility] Last Infusion: 09/06/20 00:33 Dose: 0 mls/hr Documented by: Influenza Virus Vaccine (Pharmacy To Dose - Influenza Vaccine) 1 each IM DAILY [facility] Lorazepam (Lorazepam 2 Mg/Ml Sdv) 2 mg IVPUSH Q2H PRN PRN Reason: Withdrawal Symptoms Last Admin: 09/05/20 21:35 Dose: 2 mg Documented by: Sodium Chloride (Sodium Chloride 0.9% 10 Ml Syringe) 10 ml FLUSH ASDIRECTED PRN PRN Reason: Keep Vein Open Last Admin: 09/05/20 07:38 Dose: 10 ml Documented by: Discontinued Medications Chlordiazepoxide HCl (Chlordiazepoxide 25 Mg Cap) 75 mg PO Q6HR [facility] Last Admin: 09/06/20 05:22 Dose: 75 mg Documented by: Multivitamins/Minerals 10 ml/Thiamine HCl 100 mg/ Folic Acid 1 mg/ Lactated Ri nger's 1,011.2 mls @ 999 mls/hr IV .BOLUS ONE Stop: 09/05/20 08:17 Last Admin: 09/05/20 07:38 Dose: 999 mls/hr Documented by: Magnesium Sulfate (Magnesium Sulfate In Water 2 Gm/50 Ml) 2 gm in 50 mls @ 25 mls/hr IV ONETIME ONE Stop: 09/05/20 10:16 Last Admin: 09/05/20 08:37 Dose: 25 mls/hr Documented by: Potassium Chloride/Sodium Chloride (Normal Saline With 40 Meq Kcl) 1,000 mls @ 250 mls/hr IV ASDIRECTED [facility] Last Admin: 09/05/20 08:37 Dose: 250 mls/hr Documented by: Magnesium Sulfate (Magnesium Sulfate In Water 2 Gm/50 Ml) 2 gm in 50 mls @ 25 mls/hr IV ONETIME ONE Stop: 09/06/20 10:52 Last Admin: 09/06/20 11:34 Dose: 25 mls/hr Documented by: Lorazepam (Lorazepam 2 Mg/Ml Sdv) 2 mg IVPUSH ONETIME ONE Stop: 09/05/20 07:18 Last Admin: 09/05/20 07:38 Dose: 2 mg Documented by: Lorazepam (Lorazepam 2 Mg/Ml Sdv) 2 mg IVPUSH ONETIME ONE Stop: 09/05/20 10:06 Last Admin: 09/05/20 10:16 Dose: 2 mg Documented by: Ondansetron HCl (Ondansetron 4 Mg/2 Ml Sdv) 4 mg IV ONETIME ONE Stop: 09/05/20 07:18 Last Admin: 09/05/20 07:38 Dose: 4 mg Documented by: Pantoprazole Sodium (Pantoprazole 40 Mg Vial) 40 mg IVPUSH ONETIME ONE Stop: 09/05/20 07:18 Last Admin: 09/05/20 07:38 Dose: 40 mg Documented by: Potassium Chloride (Potassium Chloride 10 Meq Tab.Er) 40 meq PO ONETIME ONE Stop: 09/06/20 08:54 Last Admin: 09/06/20 11:34 Dose: 40 meq Documented by: - Exam Quality Assessment: No: Supplemental Oxygen General: Alert, Oriented, Cooperative, No Acute Distress HEENT: Pupils Equal, Pupils Reactive Neck: Supple Lungs: Clear to Auscultation, Normal Respiratory Effort Cardiovascular: Regular Rate, Regular Rhythm, No Murmurs GI/Abdominal Exam: Normal Bowel Sounds, Soft, Non-Tender, No Distention Extremities: No Pedal Edema Skin: Warm, Dry Neurological: No New Focal Deficit Psy/Mental Status: Alert, Normal Affect, Normal Mood - Patient Data Lab Results Last 24 hrs: Laboratory Results - last 24 hr 09/05/20 09/05/20 09/06/20 Range/Units 13:10 13:10 06:24 Sodium 137 138 (136-145) mmol/L Potassium 4.5 D 3.3 L (3.5-5.1) mmol/L Chloride 100 101 (98-107) mmol/L Carbon Dioxide 26 27 (21-32) mmol/L Anion Gap 15.5 H 13.3 H (7-13) mEq/L BUN 9 5 L (7-18) mg/dL Creatinine 0.84 0.83 (0.70-1.30) mg/dL Est Cr Clr Drug Dosing 150.86 152.68 mL/min Estimated GFR (MDRD) > 60 > 60 Glucose 103 H 97 (74-99) mg/dL Lactic Acid 0.8 (0.4-2.0) mmol/L Calcium 8.9 8.3 L (8.5-10.1) mg/dL Phosphorus 3.1 3.5 (2.6-4.7) mg/dL Magnesium 1.8 1.7 L (1.8-2.4) mg/dL Total Bilirubin 2.7 H (0.2-1.0) mg/dL Direct Bilirubin 1.4 H (0.0-0.2) mg/dL Indirect Bilirubin 1.3 AST 148 H (15-37) U/L ALT 70 H (16-63) U/L Alkaline Phosphatase 90 (46-116) U/L Total Protein 7.1 (6.4-8.2) g/dL Albumin 3.1 L (3.4-5.0) g/dL Globulin 4.0 Albumin/Globulin Ratio 0.78 Result Diagrams: 09/05/20 07:18 09/06/20 06:24 Sepsis Event Note - Evaluation Sepsis Screening Result: No Definite Risk - Focused Exam Vital Signs: Vital Signs Temp Pulse Resp BP BP Pulse Ox 09/06/20 08:40 96.7 F L 102 H 20 155/104 H 98 09/06/20 03:50 97.2 F 99 16 160/92 H 97 09/06/20 00:00 98.0 F 105 H 16 145/85 H 92 L - Problem List Review Problem List Initiated/Reviewed/Updated: No - My Orders Last 24 Hours: My Active Orders 09/05/20 11:26 Admission Diagnosis [ADT] Routine Patient Status [ADT] Routine 09/05/20 12:24 Influenza Vaccine Charge [RC] .DISCHARGE 09/05/20 12:41 Patient Status [ADT] Routine Oxygen Therapy [RC] .PRN Up With Assistance [RC] ASDIRECTED VTE/DVT Education [RC] PER UNIT ROUTINE Vital Signs [RC] Q4H LORazepam [Ativan] 2 mg IVPUSH Q2H PRN Resuscitation Status Routine 09/05/20 12:45 Sodium Chloride 0.9% [Normal Saline] 1,000 ml IV ASDIRECTED 09/05/20 Dinner Regular Diet [DIET] 09/05/20 18:09 CIWAA Assessment [RC] 00,04,08,12,16,20 09/06/20 08:54 Abdomen Comp [US] Routine 09/06/20 09:00 Enoxaparin [Lovenox] 40 mg SUBCUT DAILY Pharmacy to Dose - InFluenza V [Pharmacy to Dose - InFluenza Vaccine] 1 each IM DAILY 09/06/20 14:00 chlordiazePOXIDE [Librium] 75 mg PO Q8H - Plan Plan:: #acute alcohol w/drawal - doing well - taper librium 75 mg q6h >>> q8h - c/w prn ativan - IVF #alcohol dependence and abuse - counseled on abstinence and need for inpt rehab PPX - LMWH Full code
[2020-09-06] MEDS: Sodium Chloride 0.9% 1,000 ML IV SCH (13:29)
[2020-09-06] MEDS ORDERED: chlordiazePOXIDE 25 MG Cap PO SCH (14:00)
[2020-09-06] MEDS: LORazepam 2 MG/ML SDV IVPUSH PRN (22:09)
[2020-09-07] MEDS: chlordiazePOXIDE 25 MG Cap PO SCH ×3 (05:30→23:24)
[2020-09-07 07:10] LABS: ANION GAP 13.2 mEq/L (7-13); CHLORIDE,CL 103 mmol/L (98-107); SODIUM,NA 141 mmol/L (136-145)
[2020-09-07] MEDS: Enoxaparin 40 MG/0.4 ML Syringe SUBCUT SCH (08:33)
--- NOTE | 2020-09-07 10:29 | PCM.PN ---
- General Info Date of Service: 09/07/20 Admission Dx/Problem (Free Text): No complaints. Pleasant and compliant. Refusing IVF. - Patient Data Vitals - Most Recent: Last Vital Signs Temp 98.3 F 09/07/20 08:40 Pulse 80 09/07/20 08:40 Resp 20 09/07/20 08:40 BP 175/106 H 09/07/20 08:40 Pulse Ox 98 09/07/20 08:40 Weight - Most Recent: 302 lb 6.4 oz I&O - Last 24 Hours: Intake & Output 09/06/20 09/07/20 09/07/20 21:59 06:59 14:59 Intake Total Balance Lab Results Last 24 Hours: Laboratory Results - last 24 hr 09/07/20 Range/Units 06:22 Sodium 141 (136-145) mmol/L Potassium 4.2 (3.5-5.1) mmol/L Chloride 103 (98-107) mmol/L Carbon Dioxide 29 (21-32) mmol/L Anion Gap 13.2 H (7-13) mEq/L BUN 6 L (7-18) mg/dL Creatinine 0.79 (0.70-1.30) mg/dL Est Cr Clr Drug Dosing 160.41 mL/min Estimated GFR (MDRD) > 60 BUN/Creatinine Ratio 7.6 (No establ ref range) Glucose 94 (74-99) mg/dL Calcium 8.4 L (8.5-10.1) mg/dL Phosphorus 3.4 (2.6-4.7) mg/dL Magnesium 2.0 (1.8-2.4) mg/dL Total Bilirubin 2.1 H (0.2-1.0) mg/dL AST 148 H (15-37) U/L ALT 76 H (16-63) U/L Alkaline Phosphatase 87 (46-116) U/L Total Protein 7.1 (6.4-8.2) g/dL Albumin 3.1 L (3.4-5.0) g/dL Globulin 4.0 Albumin/Globulin Ratio 0.78 Med Orders - Current: Current Medications Chlordiazepoxide HCl (Chlordiazepoxide 25 Mg Cap) 50 mg PO Q8H [facility] Last Admin: 09/07/20 05:30 Dose: 50 mg Documented by: Enoxaparin Sodium (Enoxaparin 40 Mg/0.4 Ml Syringe) 40 mg SUBCUT DAILY [facility] Last Admin: 09/07/20 08:33 Dose: 40 mg Documented by: Influenza Virus Vaccine (Pharmacy To Dose - Influenza Vaccine) 1 each IM DAILY [facility] Last Admin: 09/07/20 08:33 Dose: Not Given Documented by: Lorazepam (Lorazepam 2 Mg/Ml Sdv) 2 mg IVPUSH Q2H PRN PRN Reason: Withdrawal Symptoms Last Admin: 09/06/20 22:09 Dose: 2 mg Documented by: Sodium Chloride (Sodium Chloride 0.9% 10 Ml Syringe) 10 ml FLUSH ASDIRECTED PRN PRN Reason: Keep Vein Open Last Admin: 09/05/20 07:38 Dose: 10 ml Documented by: Discontinued Medications Chlordiazepoxide HCl (Chlordiazepoxide 25 Mg Cap) 75 mg PO Q6HR [facility] Last Admin: 09/06/20 05:22 Dose: 75 mg Documented by: Chlordiazepoxide HCl (Chlordiazepoxide 25 Mg Cap) 75 mg PO Q8H [facility] Last Admin: 09/06/20 14:49 Dose: 75 mg Documented by: Multivitamins/Minerals 10 ml/Thiamine HCl 100 mg/ Folic Acid 1 mg/ Lactated Ringer's 1,011.2 mls @ 999 mls/hr IV .BOLUS ONE Stop: 09/05/20 08:17 Last Admin: 09/05/20 07:38 Dose: 999 mls/hr Documented by: Magnesium Sulfate (Magnesium Sulfate In Water 2 Gm/50 Ml) 2 gm in 50 mls @ 25 mls/hr IV ONETIME ONE Stop: 09/05/20 10:16 Last Admin: 09/05/20 08:37 Dose: 25 mls/hr Documented by: Potassium Chloride/Sodium Chloride (Normal Saline With 40 Meq Kcl) 1,000 mls @ 250 mls/hr IV ASDIRECTED [facility] Last Admin: 09/05/20 08:37 Dose: 250 mls/hr Documented by: Sodium Chloride (Normal Saline) 1,000 mls @ 150 mls/hr IV ASDIRECTED [facility] Last Admin: 09/06/20 13:29 Dose: 150 mls/hr Documented by: Magnesium Sulfate (Magnesium Sulfate In Water 2 Gm/50 Ml) 2 gm in 50 mls @ 25 mls/hr IV ONETIME ONE Stop: 09/06/20 10:52 Last Admin: 09/06/20 11:34 Dose: 25 mls/hr Documented by: Lorazepam (Lorazepam 2 Mg/Ml Sdv) 2 mg IVPUSH ONETIME ONE Stop: 09/05/20 07:18 Last Admin: 09/05/20 07:38 Dose: 2 mg Documented by: Lorazepam (Lorazepam 2 Mg/Ml Sdv) 2 mg IVPUSH ONETIME ONE Stop: 09/05/20 10:06 Last Admin: 09/05/20 10:16 Dose: 2 mg Documented by: Ondansetron HCl (Ondansetron 4 Mg/2 Ml Sdv) 4 mg IV ONETIME ONE Stop: 09/05/20 07:18 Last Admin: 09/05/20 07:38 Dose: 4 mg Documented by: Pantoprazole Sodium (Pantoprazole 40 Mg Vial) 40 mg IVPUSH ONETIME ONE Stop: 09/05/20 07:18 Last Admin: 09/05/20 07:38 Dose: 40 mg Documented by: Potassium Chloride (Potassium Chloride 10 Meq Tab.Er) 40 meq PO ONETIME ONE Stop: 09/06/20 08:54 Last Admin: 09/06/20 11:34 Dose: 40 meq Documented by: - Exam Quality Assessment: No: Supplemental Oxygen General: Alert, Oriented, Cooperative HEENT: Pupils Equal, Pupils Reactive Neck: Supple Lungs: Clear to Auscultation, Normal Respiratory Effort Cardiovascular: Regular Rate, Regular Rhythm, No Murmurs GI/Abdominal Exam: Normal Bowel Sounds, Soft, Non-Tender, No Distention Extremities: No Pedal Edema Skin: Warm, Dry Neurological: No New Focal Deficit Psy/Mental Status: Alert, Normal Affect, Normal Mood - Patient Data Lab Results Last 24 hrs: Laboratory Results - last 24 hr 09/07/20 Range/Units 06:22 Sodium 141 (136-145) mmol/L Potassium 4.2 (3.5-5.1) mmol/L Chloride 103 (98-107) mmol/L Carbon Dioxide 29 (21-32) mmol/L Anion Gap 13.2 H (7-13) mEq/L BUN 6 L (7-18) mg/dL Creatinine 0.79 (0.70-1.30) mg/dL Est Cr Clr Drug Dosing 160.41 mL/min Estimated GFR (MDRD) > 60 BUN/Creatinine Ratio 7.6 (No establ ref range) Glucose 94 (74-99) mg/dL Calcium 8.4 L (8.5-10.1) mg/dL Phosphorus 3.4 (2.6-4.7) mg/dL Magnesium 2.0 (1.8-2.4) mg/dL Total Bilirubin 2.1 H (0.2-1.0) mg/dL AST 148 H (15-37) U/L ALT 76 H (16-63) U/L Alkaline Phosphatase 87 (46-116) U/L Total Protein 7.1 (6.4-8.2) g/dL Albumin 3.1 L (3.4-5.0) g/dL Globulin 4.0 Albumin/Globulin Ratio 0.78 Result Diagrams: 09/05/20 07:18 09/07/20 06:22 Sepsis Event Note - Evaluation Sepsis Screening Result: No Definite Risk - Focused Exam Vital Signs: Vital Signs Temp Pulse Resp BP BP Pulse Ox 09/07/20 08:40 98.3 F 80 20 175/106 H 98 09/07/20 05:00 97.9 F 88 20 169/92 H 97 - Problem List Review Problem List Initiated/Reviewed/Updated: No - My Orders Last 24 Hours: My Active Orders 09/06/20 08:54 Abdomen Comp [US] Routine 09/06/20 09:00 Enoxaparin [Lovenox] 40 mg SUBCUT DAILY Pharmacy to Dose - InFluenza V [Pharmacy to Dose - InFluenza Vaccine] 1 each IM DAILY 09/06/20 21:19 chlordiazePOXIDE [Librium] 50 mg PO Q8H - Plan Plan:: #acute alcohol w/drawal - doing well - taper librium 75 mg >>> 50 mg q8h - c/w prn ativan #alcohol dependence and abuse - counseled on abstinence and need for inpt rehab #abnormal LFTs - likely alcoholic hepatitis - check abd sono - check hepatitis serologies #hypokalemia / hypomagnesemia - replete as needed PPX - LMWH Full code
--- NOTE | 2020-09-07 10:51 | US ---
PROCEDURE INFORMATION: Exam: US Abdomen; Limited Exam date and time: 09/07/2020 8:05 AM Age: 30 years old Clinical indication: Abnormal findings; Abnormal lab test; Elevated liver enzymes; Additional info: Abnormal lfts / ETOH hepatitis TECHNIQUE: Imaging protocol: US abdomen. Real time ultrasound with image documentation. Limited exam focused on the region of clinical interest. COMPARISON: No relevant prior studies available. FINDINGS: Liver: Liver is hyperechoic. Gallbladder: Gallbladder appears unremarkable. Absent sonographic Harris sign. Common bile duct: CBD measures 3 mm. Pancreas: Pancreas appears unremarkable. IMPRESSION: Liver is hyperechoic, likely representing steatosis. No intrahepatic or extrahepatic biliary ductal dilatation.
[2020-09-08 07:11] LABS: ANION GAP 15.8 mEq/L (7-13); CHLORIDE,CL 104 mmol/L (98-107); SODIUM,NA 142 mmol/L (136-145)
[2020-09-08] MEDS: Enoxaparin 40 MG/0.4 ML Syringe SUBCUT SCH (08:55)
[2020-09-08] MEDS ORDERED: Ibuprofen 400 MG Tab PO ONE ×2 (09:12→20:50)
[2020-09-08] MEDS: chlordiazePOXIDE 25 MG Cap PO SCH ×2 (13:45→18:53)
--- NOTE | 2020-09-08 18:35 | PCM.PN ---
- General Info Date of Service: 09/08/20 Admission Dx/Problem (Free Text): No complaints. No tremors. - Patient Data Vitals - Most Recent: Last Vital Signs Temp 98.3 F 09/08/20 16:00 Pulse 86 09/08/20 16:00 Resp 20 09/08/20 16:00 BP 149/100 H 09/08/20 16:00 Pulse Ox 96 09/08/20 16:00 Weight - Most Recent: 302 lb 6.4 oz I&O - Last 24 Hours: Intake & Output 09/08/20 09/08/20 09/08/20 06:59 14:59 22:59 Intake Total 940 Balance 940 Lab Results Last 24 Hours: Laboratory Results - last 24 hr 09/08/20 Range/Units 06:25 Sodium 142 (136-145) mmol/L Potassium 3.8 (3.5-5.1) mmol/L Chloride 104 (98-107) mmol/L Carbon Dioxide 26 (21-32) mmol/L Anion Gap 15.8 H (7-13) mEq/L BUN 9 (7-18) mg/dL Creatinine 0.81 (0.70-1.30) mg/dL Est Cr Clr Drug Dosing 156.45 mL/min Estimated GFR (MDRD) > 60 Glucose 111 H (74-99) mg/dL Calcium 8.5 (8.5-10.1) mg/dL Phosphorus 4.0 (2.6-4.7) mg/dL Magnesium 2.0 (1.8-2.4) mg/dL Med Orders - Current: Current Medications Chlordiazepoxide HCl (Chlordiazepoxide 25 Mg Cap) 25 mg PO Q12H [facility] Enoxaparin Sodium (Enoxaparin 40 Mg/0.4 Ml Syringe) 40 mg SUBCUT DAILY [facility] Last Admin: 09/08/20 08:55 Dose: 40 mg Documented by: Influenza Virus Vaccine (Pharmacy To Dose - Influenza Vaccine) 1 each IM DAILY [facility] Last Admin: 09/08/20 09:08 Dose: Not Given Documented by: Lorazepam (Lorazepam 2 Mg/Ml Sdv) 2 mg IVPUSH Q2H PRN PRN Reason: Withdrawal Symptoms Last Admin: 09/06/20 22:09 Dose: 2 mg Documented by: Sodium Chloride (Sodium Chloride 0.9% 10 Ml Syringe) 10 ml FLUSH ASDIRECTED PRN PRN Reason: Keep Vein Open Last Admin: 09/05/20 07:38 Dose: 10 ml Documented by: Discontinued Medications Chlordiazepoxide HCl (Chlordiazepoxide 25 Mg Cap) 75 mg PO Q6HR [facility] Last Admin: 09/06/20 05:22 Dose: 75 mg Documented by: Chlordiazepoxide HCl (Chlordiazepoxide 25 Mg Cap) 75 mg PO Q8H [facility] Last Admin: 09/06/20 14:49 Dose: 75 mg Documented by: Chlordiazepoxide HCl (Chlordiazepoxide 25 Mg Cap) 50 mg PO Q8H [facility] Last Admin: 09/07/20 12:43 Dose: 50 mg Documented by: Chlordiazepoxide HCl (Chlordiazepoxide 25 Mg Cap) 50 mg PO Q12H [facility] Last Admin: 09/08/20 13:45 Dose: 50 mg Documented by: Multivitamins/Minerals 10 ml/Thiamine HCl 100 mg/ Folic Acid 1 mg/ Lactated Ringer's 1,011.2 mls @ 999 mls/hr IV .BOLUS ONE Stop: 09/05/20 08:17 Last Admin: 09/05/20 07:38 Dose: 999 mls/hr Documented by: Magnesium Sulfate (Magnesium Sulfate In Water 2 Gm/50 Ml) 2 gm in 50 mls @ 25 mls/hr IV ONETIME ONE Stop: 09/05/20 10:16 Last Admin: 09/05/20 08:37 Dose: 25 mls/hr Documented by: Potassium Chloride/Sodium Chloride (Normal Saline With 40 Meq Kcl) 1,000 mls @ 250 mls/hr IV ASDIRECTED [facility] Last Admin: 09/05/20 08:37 Dose: 250 mls/hr Documented by: Sodium Chloride (Normal Saline) 1,000 mls @ 150 mls/hr IV ASDIRECTED [facility] Last Admin: 09/06/20 13:29 Dose: 150 mls/hr Documented by: Magnesium Sulfate (Magnesium Sulfate In Water 2 Gm/50 Ml) 2 gm in 50 mls @ 25 mls/hr IV ONETIME ONE Stop: 09/06/20 10:52 Last Admin: 09/06/20 11:34 Dose: 25 mls/hr Documented by: Ibuprofen (Ibuprofen 400 Mg Tab) 400 mg PO ONETIME ONE Stop: 09/08/20 09:13 Last Admin: 09/08/20 09:41 Dose: 400 mg Documented by: Lorazepam (Lorazepam 2 Mg/Ml Sdv) 2 mg IVPUSH ONETIME ONE Stop: 09/05/20 07:18 Last Admin: 09/05/20 07:38 Dose: 2 mg Documented by: Lorazepam (Lorazepam 2 Mg/Ml Sdv) 2 mg IVPUSH ONETIME ONE Stop: 09/05/20 10:06 Last Admin: 09/05/20 10:16 Dose: 2 mg Documented by: Ondansetron HCl (Ondansetron 4 Mg/2 Ml Sdv) 4 mg IV ONETIME ONE Stop: 09/05/20 07:18 Last Admin: 09/05/20 07:38 Dose: 4 mg Documented by: Pantoprazole Sodium (Pantoprazole 40 Mg Vial) 40 mg IVPUSH ONETIME ONE Stop: 09/05/20 07:18 Last Admin: 09/05/20 07:38 Dose: 40 mg Documented by: Potassium Chloride (Potassium Chloride 10 Meq Tab.Er) 40 meq PO ONETIME ONE Stop: 09/06/20 08:54 Last Admin: 09/06/20 11:34 Dose: 40 meq Documented by: - Exam Quality Assessment: No: Supplemental Oxygen General: Alert, Oriented, Cooperative, No Acute Distress HEENT: Pupils Equal, Pupils Reactive Neck: Supple Lungs: Clear to Auscultation, Normal Respiratory Effort Cardiovascular: Regular Rate, Regular Rhythm, No Murmurs GI/Abdominal Exam: Normal Bowel Sounds, Soft, Non-Tender, No Distention Back Exam: Normal Inspection Extremities: No Pedal Edema Skin: Warm, Dry Neurological: No New Focal Deficit Psy/Mental Status: Alert, Normal Affect, Normal Mood - Patient Data Lab Results Last 24 hrs: Laboratory Results - last 24 hr 09/08/20 Range/Units 06:25 Sodium 142 (136-145) mmol/L Potassium 3.8 (3.5-5.1) mmol/L Chloride 104 (98-107) mmol/L Carbon Dioxide 26 (21-32) mmol/L Anion Gap 15.8 H (7-13) mEq/L BUN 9 (7-18) mg/dL Creatinine 0.81 (0.70-1.30) mg/dL Est Cr Clr Drug Dosing 156.45 mL/min Estimated GFR (MDRD) > 60 Glucose 111 H (74-99) mg/dL Calcium 8.5 (8.5-10.1) mg/dL Phosphorus 4.0 (2.6-4.7) mg/dL Magnesium 2.0 (1.8-2.4) mg/dL Result Diagrams: 09/05/20 07:18 09/08/20 06:25 Sepsis Event Note - Evaluation Sepsis Screening Result: No Definite Risk - Focused Exam Vital Signs: Vital Signs Temp Pulse Resp BP BP Pulse Ox 09/08/20 16:00 98.3 F 86 20 149/100 H 96 09/08/20 12:48 97.6 F 83 20 148/86 H 98 09/08/20 07:56 97.4 F 84 20 156/98 H 98 - Problem List Review Problem List Initiated/Reviewed/Updated: No - My Orders Last 24 Hours: My Active Orders 09/08/20 06:25 HEPATITIS PANEL (4) [REF] Routine 09/08/20 18:34 chlordiazePOXIDE [Librium] 25 mg PO Q12H - Plan Plan:: #acute alcohol w/drawal - doing well - taper librium 50 mg q8h >>> q12 and then down to 25 overnight - anticipate d/c in am #alcohol dependence and abuse - counseled on abstinence and need for inpt rehab #abnormal LFTs - likely alcoholic hepatitis - fatty liver on abd sono - check hepatitis serologies #hypokalemia / hypomagnesemia - replete as needed PPX - LMWH Full code
[2020-09-09] MEDS: chlordiazePOXIDE 25 MG Cap PO SCH (05:37)
[2020-09-09] MEDS: Enoxaparin 40 MG/0.4 ML Syringe SUBCUT SCH (09:46)
[2020-09-09] MEDS ORDERED: FLU Vacc QS2020-21 36MOS UP/PF 60 MCG/0.5 ML Syringe IM ONE (10:00)
--- NOTE | 2020-09-09 17:27 | PCM.DCSUM1 ---
Discharge Summary - Hospital Course Free Text/Narrative:: 30M w/ pmh alcoholism p/w nausea, vomiting, tremors. Pt habitually drinks nearly a liter of liquor per day. Last ingestion yesterday. He came in w/ nausea, vomiting, headaches, abdominal pain, tremors. He is expressing wish to detox and rehabilitate. He was treated w/ librium and ativan and had an uncomplicated stay. Evaluation also showed likely mild alcoholic hepatitis. He did not wish to enter in-patient rehab but was referred to an outpatient karlie maldonado. Viral hepatitis serologies are still pending at time of discharge. Diagnosis: Stroke: No - Discharge Data Discharge Date: 09/09/20 Discharge Disposition: Home, Self-Care 01 Condition: Good - Referral to Home Health Primary Care Physician: PCP None - Discharge Plan *PRESCRIPTION DRUG MONITORING PROGRAM REVIEWED*: Not Applicable *COPY OF PRESCRIPTION DRUG MONITORING REPORT IN PATIENT TROY: Not Applicable Home Medications: Home Meds . [No Known Home Meds] 07/29/18 [History] Patient Handouts: Alcohol Withdrawal Syndrome, [id number] Referrals: Marco Higuera NP [Nurse Practitioner] - - Discharge Summary/Plan Comment DC Time >30 min.: Yes (35 min) - Patient Data Vitals - Most Recent: Last Vital Signs Temp 97.6 F 09/09/20 08:00 Pulse 80 09/09/20 08:00 Resp 16 09/09/20 08:00 BP 164/102 H 09/09/20 08:00 Pulse Ox 98 09/09/20 08:00 Weight - Most Recent: 302 lb 6.4 oz Med Orders - Current: Current Medications Discontinued Medications Chlordiazepoxide HCl (Chlordiazepoxide 25 Mg Cap) 75 mg PO Q6HR [facility] Last Admin: 09/06/20 05:22 Dose: 75 mg Documented by: Chlordiazepoxide HCl (Chlordiazepoxide 25 Mg Cap) 75 mg PO Q8H [facility] Last Admin: 09/06/20 14:49 Dose: 75 mg Documented by: Chlordiazepoxide HCl (Chlordiazepoxide 25 Mg Cap) 50 mg PO Q8H [facility] Last Admin: 09/07/20 12:43 Dose: 50 mg Documented by: Chlordiazepoxide HCl (Chlordiazepoxide 25 Mg Cap) 50 mg PO Q12H [facility] Last Admin: 09/08/20 13:45 Dose: 50 mg Documented by: Chlordiazepoxide HCl (Chlordiazepoxide 25 Mg Cap) 25 mg PO Q12H [facility] Last Admin: 09/09/20 05:37 Dose: 25 mg Documented by: Enoxaparin Sodium (Enoxaparin 40 Mg/0.4 Ml Syringe) 40 mg SUBCUT DAILY [facility] Last Admin: 09/09/20 09:46 Dose: 40 mg Documented by: Multivitamins/Minerals 10 ml/Thiamine HCl 100 mg/ Folic Acid 1 mg/ Lactated Ringer's 1,011.2 mls @ 999 mls/hr IV .BOLUS ONE Stop: 09/05/20 08:17 Last Admin: 09/05/20 07:38 Dose: 999 mls/hr Documented by: Magnesium Sulfate (Magnesium Sulfate In Water 2 Gm/50 Ml) 2 gm in 50 mls @ 25 mls/hr IV ONETIME ONE Stop: 09/05/20 10:16 Last Admin: 09/05/20 08:37 Dose: 25 mls/hr Documented by: Potassium Chloride/Sodium Chloride (Normal Saline With 40 Meq Kcl) 1,000 mls @ 250 mls/hr IV ASDIRECTED [facility] Last Admin: 09/05/20 08:37 Dose: 250 mls/hr Documented by: Sodium Chloride (Normal Saline) 1,000 mls @ 150 mls/hr IV ASDIRECTED [facility] Last Admin: 09/06/20 13:29 Dose: 150 mls/hr Documented by: Magnesium Sulfate (Magnesium Sulfate In Water 2 Gm/50 Ml) 2 gm in 50 mls @ 25 mls/hr IV ONETIME ONE Stop: 09/06/20 10:52 Last Admin: 09/06/20 11:34 Dose: 25 mls/hr Documented by: Ibuprofen (Ibuprofen 400 Mg Tab) 400 mg PO ONETIME ONE Stop: 09/08/20 09:13 Last Admin: 09/08/20 09:41 Dose: 400 mg Documented by: Ibuprofen (Ibuprofen 400 Mg Tab) 400 mg PO ONETIME ONE Stop: 09/08/20 20:51 Last Admin: 09/08/20 21:27 Dose: 400 mg Documented by: Influenza Virus Vaccine (Pharmacy To Dose - Influenza Vaccine) 1 each IM DAILY [facility] Last Admin: 09/09/20 10:26 Dose: Not Given Documented by: Influenza Virus Vaccine (Flu Vacc [id number] 36mos Up/Pf 60 Mcg/0.5 Ml Syringe) 60 mcg IM .ONCE ONE Stop: 09/09/20 10:01 Last Admin: 09/09/20 10:18 Dose: 60 mcg Documented by: Lorazepam (Lorazepam 2 Mg/Ml Sdv) 2 mg IVPUSH ONETIME ONE Stop: 09/05/20 07:18 Last Admin: 09/05/20 07:38 Dose: 2 mg Documented by: Lorazepam (Lorazepam 2 Mg/Ml Sdv) 2 mg IVPUSH ONETIME ONE Stop: 09/05/20 10:06 Last Admin: 09/05/20 10:16 Dose: 2 mg Documented by: Lorazepam (Lorazepam 2 Mg/Ml Sdv) 2 mg IVPUSH Q2H PRN PRN Reason: Withdrawal Symptoms Last Admin: 09/06/20 22:09 Dose: 2 mg Documented by: Ondansetron HCl (Ondansetron 4 Mg/2 Ml Sdv) 4 mg IV ONETIME ONE Stop: 09/05/20 07:18 Last Admin: 09/05/20 07:38 Dose: 4 mg Documented by: Pantoprazole Sodium (Pantoprazole 40 Mg Vial) 40 mg IVPUSH ONETIME ONE Stop: 09/05/20 07:18 Last Admin: 09/05/20 07:38 Dose: 40 mg Documented by: Potassium Chloride (Potassium Chloride 10 Meq Tab.Er) 40 meq PO ONETIME ONE Stop: 09/06/20 08:54 Last Admin: 09/06/20 11:34 Dose: 40 meq Documented by: Sodium Chloride (Sodium Chloride 0.9% 10 Ml Syringe) 10 ml FLUSH ASDIRECTED PRN PRN Reason: Keep Vein Open Last Admin: 09/05/20 07:38 Dose: 10 ml Documented by: - Exam Quality Assessment: Denies: Supplemental Oxygen General: Reports: Alert, Oriented, Cooperative HEENT: Reports: Pupils Equal, Pupils Reactive Neck: Reports: Supple Lungs: Reports: Clear to Auscultation, Normal Respiratory Effort Cardiovascular: Reports: Regular Rate, Regular Rhythm, No Murmurs GI/Abdominal Exam: Normal Bowel Sounds, Soft, Non-Tender, No Distention Back Exam: Reports: Normal Inspection Extremities: No Pedal Edema Skin: Reports: Warm, Dry Neurological: Reports: No New Focal Deficit Psy/Mental Status: Reports: Alert, Normal Affect, Normal Mood
== END 2020-09-09 10:00 | disposition home or self-care (01) | DRG 897 ==
LOC: DL.ED 07:08 → DL.MS 11:26
PROVIDERS: ADMIT Internal Medicine; ATTEND Internal Medicine
DX: F10.239 Alcohol dependence with withdrawal, unspecified (principal); K70.10 Alcoholic hepatitis without ascites; H54.7 Unspecified visual loss; E87.6 Hypokalemia; E83.42 Hypomagnesemia; Z20.822 Contact with and (suspected) exposure to COVID-19
CPT/HCPCS: 36415; 36600; 76700; 80048; 80053; 80074; 80076; 80305-QW; 80307; 81001; 82009; 82150; 82803; 83605; 83690; 83735; 84100; 85025; 85610; 85730; 90686; 96365; 96366; 96367; 96368; 96375; 96376; 99283; 99285-25; A9270-GY; C9113; J1650; J2060; J2405; J3411; J3475; J3480; J3490; J7030; J7120; U0002

== ENCOUNTER 2020-10-24 09:31 | Inpatient (IN) | payer MEDICAID ==
--- NOTE | 2020-10-24 09:49 | EDM.PDOCBH ---
ED HPI GENERAL MEDICAL PROBLEM - General Chief Complaint: Drug or Alcohol Abuse Stated Complaint: DRANK TOO MUCH ALCOHOL THIS AM Time Seen by Provider: 10/24/20 09:44 Source of Information: Reports: Patient, Old Records, RN, RN Notes Reviewed History Limitations: Reports: No Limitations - History of Present Illness INITIAL COMMENTS - FREE TEXT/NARRATIVE: Pt presents to ER with c/o "I drank way too much alcohol again". Pt states family called 911 this morning, but he refused to go with the ambulance. He finally agreed to come to the ER by POV. Pt states he is an alcoholic and cannot seem to stop drinking alcohol. He admits to occasional upper abdominal pain and burning, especially after vomiting. He states he usually only vomits after drinking too much alcohol. He does not think he has every been diagnosed with esophageal varices. Pt admits to some bright red blood streaks in his emesis this morning. Denies coffee ground emesis, bloody, black, or melanotic stool. Pt claims he has been a heavy daily drinker for over 7 years. Denies dizziness, lightheadedness, or syncope. Emesis in ER is clear/yellow, no blood. Duration: Chronic, Recurring Location: Reports: Generalized Quality: Reports: Same as Previous Episode Severity: Moderate Improves with: Reports: None Worsens with: Reports: None Associated Symptoms: Reports: No Other Symptoms - Related Data Allergies Allergy/AdvReac Type Severity Reaction Status Date / Time No Known Allergies Allergy Verified 09/05/20 07:45 Home Meds: Home Meds . [No Known Home Meds] 07/29/18 [History] Past Medical History - Past Health History Medical/Surgical History: Denies Medical/Surgical History HEENT History: Reports: Impaired Vision Other HEENT History: wear glasses Cardiovascular History: Reports: None Other Cardiovascular History: born with heart failure Respiratory History: Reports: None Gastrointestinal History: Reports: None Genitourinary History: Reports: None Musculoskeletal History: Reports: None Neurological History: Reports: None Psychiatric History: Reports: Addiction Endocrine/Metabolic History: Reports: None Hematologic History: Reports: None Immunologic History: Reports: None Oncologic (Cancer) History: Reports: None Dermatologic History: Reports: None - Infectious Disease History Infectious Disease History: Reports: Chicken Pox - Past Surgical History Head Surgeries/Procedures: Reports: None Social & Family History - Family History Family Medical History: No Pertinent Family History - Caffeine Use Caffeine Use: Reports: Coffee, Soda - Living Situation & Occupation Living situation: Reports: with Family ED ROS GENERAL - Review of Systems Review Of Systems: Comprehensive ROS is negative, except as noted in HPI. ED EXAM, BEHAVIORAL HEALTH - Physical Exam Exam: See Below Exam Limited By: No Limitations General Appearance: Alert, WD/WN, No Apparent Distress Eye Exam: Bilateral Eye: Normal Inspection (No scleral icterus) Nose: Normal Inspection, No Blood Throat/Mouth: Normal Lips, Normal Voice, No Airway Compromise Head: Atraumatic, Normocephalic Neck: Normal Inspection, Supple, Non-Tender, Full Range of Motion Respiratory/Chest: No Respiratory Distress, Lungs Clear, Normal Breath Sounds, No Accessory Muscle Use, Chest Non-Tender Cardiovascular: Regular Rate, Rhythm, No Edema, Tachycardia GI/Abdominal: Normal Bowel Sounds, Soft, No Distention, No Abnormal Bruit, Pelvis Stable, Tender (Epigastric), Hepatomegaly. No: Guarding, Rigid, Rebound (Male) Exam: Deferred Rectal (Males) Exam: Deferred Back Exam: Normal Inspection Extremities: Normal Inspection Neurological: Alert, Normal Mood/Affect, CN II-XII Intact, Normal Cognition, Normal Gait, Normal Reflexes, No Motor/Sensory Deficits, Oriented x 3 Psychiatric: Depressed Mood, Flat Affect. No: Homicidal Thoughts, Phobic, Suicidal Plan, Suicidal Thoughts, Auditory Hallucinations, Visual Hallucinations, Paranoid Thoughts Skin Exam: Warm, Dry, Intact, Normal color, No rash COURSE, BEHAVIORAL HEALTH COMP - Course Vital Signs: Last Vital Signs Temp Pulse 102 H 10/24/20 10:37 Resp 20 10/24/20 10:37 BP 152/79 H 10/24/20 10:37 Pulse Ox 100 10/24/20 10:37 Orders, Labs, Meds: Active Orders 24 hr Category Date Time Status Peripheral IV Care [RC] . DIRECTED Care 10/24/20 09:51 Active DRUG SCREEN URINE BIORAD [URCHEM] Stat Lab 10/24/20 09:50 Ordered UA RFX DONATO AND CULT IF INDIC [URIN] Stat Lab 10/24/20 09:50 Ordered Pantoprazole [ProTONIX IV] 40 mg Med 10/24/20 10:45 Active Sodium Chloride 0.9% [Normal Saline] 100 ml IV .CONTINUOS Sodium Chloride 0.9% [Saline Flush] Med 10/24/20 09:51 Active 10 ml FLUSH ASDIRECTED PRN Peripheral IV Insertion Adult [OM.PC] Stat Oth 10/24/20 09:50 Ordered Medication Orders Pantoprazole Sodium 40 mg/ (Sodium Chloride) 100 mls @ 20 mls/hr IV .CONTINUOS REGI Sodium Chloride (Sodium Chloride 0.9% 10 Ml Syringe) 10 ml FLUSH ASDIRECTED PRN PRN Reason: Keep Vein Open Last Admin: 10/24/20 10:26 Dose: 10 ml Documented by: INGRID Laboratory Tests 10/24/20 10/24/20 10/24/20 Range/Units 10:04 10:04 10:04 WBC 7.5 (5.0-10.0) 10^3/uL RBC 5.15 (4.6-6.2) 10^6/uL Hgb 16.3 (14.0-18.0) g/dL Hct 48.6 (40.0-54.0) % MCV 94.4 D (80-100) fL MCH 31.7 (27.0-34.0) pg MCHC 33.5 (33.0-35.0) g/dL Plt Count 171 (150-450) 10^3/uL Neut % (Auto) 77.3 H (42.2-75.2) % Lymph % (Auto) 13.5 L (20.5-50.1) % [place] % (Auto) 8.2 H (2-8) % Eos % (Auto) 0.1 L (1.0-3.0) % Baso % (Auto) 0.9 (0.0-1.0) % PT 11.2 (9.0-12.0) SEC INR 1.1 (0.9-1.2) APTT 22.5 (22.0-34.0) SEC Sodium 140 (136-145) mmol/L Potassium 3.1 L (3.5-5.1) mmol/L Chloride 96 L (98-107) mmol/L Carbon Dioxide 23 (21-32) mmol/L Anion Gap 24.1 H (7-13) mEq/L BUN 3 L (7-18) mg/dL Creatinine 0.97 (0.70-1.30) mg/dL Est Cr Clr Drug Dosing TNP Estimated GFR (MDRD) > 60 BUN/Creatinine Ratio 3.1 (No establ ref range) Glucose 151 H (70-99) mg/dL Calcium 8.8 (8.5-10.1) mg/dL Total Bilirubin 1.4 H (0.2-1.0) mg/dL AST 353 H (15-37) U/L ALT 160 H (16-63) U/L Alkaline Phosphatase 150 H (46-116) U/L Total Protein 8.9 H (6.4-8.2) g/dL Albumin 3.9 (3.4-5.0) g/dL Globulin 5.0 Albumin/Globulin Ratio 0.8 Amylase 35 (25-115) U/L Lipase 148 (73-393) U/L Salicylates (2.8-20(Therapeutic)) mg/dL Acetaminophen 0 L (10-30 (Therapeutic)) ug/mL Ethyl Alcohol 139 (0) mg/dL 10/24/20 Range/Units 10:04 WBC (5.0-10.0) 10^3/uL RBC (4.6-6.2) 10^6/uL Hgb (14.0-18.0) g/dL Hct (40.0-54.0) % MCV (80-100) fL MCH (27.0-34.0) pg MCHC (33.0-35.0) g/dL Plt Count (150-450) 10^3/uL Neut % (Auto) (42.2-75.2) % Lymph % (Auto) (20.5-50.1) % [place] % (Auto) (2-8) % Eos % (Auto) (1.0-3.0) % Baso % (Auto) (0.0-1.0) % PT (9.0-12.0) SEC INR (0.9-1.2) APTT (22.0-34.0) SEC Sodium (136-145) mmol/L Potassium (3.5-5.1) mmol/L Chloride (98-107) mmol/L Carbon Dioxide (21-32) mmol/L Anion Gap (7-13) mEq/L BUN (7-18) mg/dL Creatinine (0.70-1.30) mg/dL Est Cr Clr Drug Dosing Estimated GFR (MDRD) BUN/Creatinine Ratio (No establ ref range) Glucose (70-99) mg/dL Calcium (8.5-10.1) mg/dL Total Bilirubin (0.2-1.0) mg/dL AST (15-37) U/L ALT (16-63) U/L Alkaline Phosphatase (46-116) U/L Total Protein (6.4-8.2) g/dL Albumin (3.4-5.0) g/dL Globulin Albumin/Globulin Ratio Amylase (25-115) U/L Lipase (73-393) U/L Salicylates < 2.8 L (2.8-20(Therapeutic)) mg/dL Acetaminophen (10-30 (Therapeutic)) ug/mL Ethyl Alcohol (0) mg/dL Medications Generic Name Dose Route Start Last Admin Trade Name Freq PRN Reason Stop Dose Admin Pantoprazole Sodium 40 mg/ 100 mls @ 20 mls/hr 10/24/20 10:45 Sodium Chloride IV .CONTINUOS REGI Sodium Chloride 10 ml 10/24/20 09:51 10/24/20 10:26 Sodium Chloride 0.9% 10 Ml Syringe FLUSH 10 ml ASDIRECTED PRN Administration Keep Vein Open Discontinued Medications Generic Name Dose Route Start Last Admin Trade Name Freq PRN Reason Stop Dose Admin Multivitamins/Minerals 10 ml/ 1,011.2 mls @ 999 mls/hr 10/24/20 09:51 10/24/20 10:25 Thiamine HCl 100 mg/ Folic IV 10/24/20 10:51 999 mls/hr Acid 1 mg/ Lactated Ringer's .BOLUS ONE Administration Lorazepam 1 mg 10/24/20 10:42 Lorazepam 2 Mg/Ml Sdv IVPUSH 10/24/20 10:43 ONETIME ONE Ondansetron HCl 4 mg 10/24/20 09:51 10/24/20 10:24 Ondansetron 4 Mg/2 Ml Sdv IV 10/24/20 09:52 4 mg ONETIME ONE Administration Ondansetron HCl 4 mg 10/24/20 10:41 Ondansetron 4 Mg/2 Ml Sdv IV 10/24/20 10:42 ONETIME ONE Pantoprazole Sodium 80 mg 10/24/20 09:57 10/24/20 10:25 Pantoprazole 40 Mg Vial IVPUSH 10/24/20 09:58 80 mg .BOLUS ONE Administration Discharge vs Psych Eval/Treatment:: 10/24/20 10:51 Plan to admit pt to med/surg. floor to the hospitalist service for inpatient detox. Departure - Departure Time of Disposition: 10:52 (admitted to Dr. Diaz) Disposition: Admitted As Inpatient 67 Condition: Fair Clinical Impression: Alcohol abuse, Hypokalemia Alcohol withdrawal Qualifiers: Complication of substance-induced condition: with unspecified complication Qualified Code(s): F10.239 - Alcohol dependence with withdrawal, unspecified - Discharge Information *PRESCRIPTION DRUG MONITORING PROGRAM REVIEWED*: Not Applicable *COPY OF PRESCRIPTION DRUG MONITORING REPORT IN PATIENT TROY: Not Applicable Forms: ED Department Discharge Sepsis Event Note (ED) - Focused Exam Vital Signs: Vital Signs Pulse Resp BP Pulse Ox 10/24/20 10:37 102 H 20 152/79 H 100 - My Orders Last 24 Hours: My Active Orders 10/24/20 09:50 DRUG SCREEN URINE BIORAD [URCHEM] Stat UA RFX DONATO AND CULT IF INDIC [URIN] Stat Peripheral IV Insertion Adult [OM.PC] Stat 10/24/20 09:51 Peripheral IV Care [RC] . DIRECTED Sodium Chloride 0.9% [Saline Flush] 10 ml FLUSH ASDIRECTED PRN 10/24/20 10:45 Pantoprazole [ProTONIX IV] 40 mg Sodium Chloride 0.9% [Normal Saline] 100 ml IV .CONTINUOS - Assessment/Plan Last 24 Hours: My Active Orders 10/24/20 09:50 DRUG SCREEN URINE BIORAD [URCHEM] Stat UA RFX DONATO AND CULT IF INDIC [URIN] Stat Peripheral IV Insertion Adult [OM.PC] Stat 10/24/20 09:51 Peripheral IV Care [RC] . DIRECTED Sodium Chloride 0.9% [Saline Flush] 10 ml FLUSH ASDIRECTED PRN 10/24/20 10:45 Pantoprazole [ProTONIX IV] 40 mg Sodium Chloride 0.9% [Normal Saline] 100 ml IV .CONTINUOS
[2020-10-24] MEDS ORDERED: Ondansetron 4 MG/2 ML SDV IV ONE ×2 (09:51→10:41)
[2020-10-24] MEDS ORDERED: MVI, Adult with Vitamin K 10 ML, Thiamine 100 MG, Folic Acid 1 MG in Lactated Ringers 1... IV ONE ×4 (09:51)
[2020-10-24] MEDS ORDERED: Pantoprazole 40 MG Vial IVPUSH ONE (09:57)
[2020-10-24] MEDS: Sodium Chloride 0.9% 10 ML Syringe FLUSH PRN ×4 (10:26→15:35)
[2020-10-24 10:32] LABS: ANION GAP 24.1 mEq/L (7-13); CHLORIDE,CL 96 mmol/L (98-107); SODIUM,NA 140 mmol/L (136-145)
[2020-10-24 10:37] LABS: ACETAMINOPHEN 0 ug/mL (10-30 (Therapeutic))
[2020-10-24 10:38] LABS: PTT,PARTIAL THROMBOPLSTIN TIME 22.5 SEC (22.0-34.0)
[2020-10-24] MEDS ORDERED: LORazepam 2 MG/ML SDV IVPUSH ONE (10:42)
[2020-10-24] MEDS ORDERED: Pantoprazole 40 MG in Sodium Chloride 0.9% 100 ML IV SCH ×2 (10:45→17:00)
[2020-10-24] MEDS ORDERED: Ketorolac 30 MG/ML SDV IVPUSH ONE (13:34)
[2020-10-24] MEDS ORDERED: Metoclopramide 10 MG/2 ML SDV IVPUSH ONE (13:34)
[2020-10-24] MEDS: Enoxaparin 40 MG/0.4 ML Syringe SUBCUT SCH (14:08)
[2020-10-24] MEDS: LORazepam 2 MG/ML SDV IV PRN ×4 (14:33→21:10)
[2020-10-24] MEDS: Lactated Ringers 1,000 ML IV SCH ×2 (15:39→23:54)
--- NOTE | 2020-10-24 16:50 | PCM.HP ---
H&P History of Present Illness - General Date of Service: 10/24/20 Admit Problem/Dx: Admission Diagnosis/Problem Admission Diagnosis/Problem Alcohol withdrawal syndrome - History of Present Illness Initial Comments - Free Text/Narative: Florian is a 30-year-old man who presented to the ER this morning with intractable nausea and vomiting as well as suspected alcohol withdrawal symptoms. He has been a heavy drinker for the past 7 to 8 years per his report. He states that his last alcoholic drink was around 6:00 this morning after which he started vomiting and has not stopped since. He is not able to keep any kind of liquids down whatsoever. He reports the last episode of vomiting he had contained blood in it. He is interested in going into inpatient treatment, his father is here with him, and they state they are going to try and find him placement as early as possible with an inpatient alcohol treatment program. He is requesting detox today. He has had no recent abdominal pain, does have some throat pain now that he has been vomiting for the past several hours. He was given IV fluid rehydration with a LR/multivitamin bag in the ED, was also given some Protonix for that episode of hematemesis. - Related Data Allergies/Adverse Reactions: Allergies Allergy/AdvReac Type Severity Reaction Status Date / Time No Known Allergies Allergy Verified 10/24/20 13:58 Home Medications: Home Meds . [No Known Home Meds] 07/29/18 [History] Past Medical History - Past Health History Medical/Surgical History: Denies Medical/Surgical History HEENT History: Reports: Impaired Vision Other HEENT History: wear glasses Cardiovascular History: Reports: None Other Cardiovascular History: born with heart failure Respiratory History: Reports: None Gastrointestinal History: Reports: None Genitourinary History: Reports: None Musculoskeletal History: Reports: None Neurological History: Reports: None Psychiatric History: Reports: Addiction Endocrine/Metabolic History: Reports: None Hematologic History: Reports: None Immunologic History: Reports: None Oncologic (Cancer) History: Reports: None Dermatologic History: Reports: None - Infectious Disease History Infectious Disease History: Reports: Chicken Pox - Past Surgical History Head Surgeries/Procedures: Reports: None Social & Family History - Family History Family Medical History: No Pertinent Family History - Tobacco Use Tobacco Use Status *Q: Never Tobacco User Second Hand Smoke Exposure: No - Caffeine Use Caffeine Use: Reports: None - Alcohol Use Days Per Week of Alcohol Use: 7 Number of Drinks Per Day: 33 Total Drinks Per Week: 231 Date of Last Drink: 10/24/20 Time of Last Drink: 06:00 - Recreational Drug Use Recreational Drug Use: No - Living Situation & Occupation Living situation: Reports: with Family H&P Review of Systems - Review of Systems: Review Of Systems: See Below Review of Systems Comment:: General: No recent weight gain or weight loss, no fevers or chills HEENT: No headache or vertigo, no difficulty with speaking or swallowing Cardiovascular: No chest pain or palpitations, no orthopnea or PND Respiratory: No chronic cough, no dyspnea or dyspnea on exertion Gastrointestinal: See HPI; no diarrhea or constipation, no melena Endocrine: No abnormal rashing or bruising, no intolerance to heat or cold Integumentary: No lesions or rashes Musculoskeletal: No myalgias or arthralgias Psychological: He has had a lot of anxiety recently and reports that he has been self-medicating with alcohol Rest of the review of systems is complete and negative Exam - Exam Exam: See Below - Vital Signs Vital Signs: Last Vital Signs Temp 98.2 F 10/24/20 11:54 Pulse 121 H 10/24/20 11:54 Resp 22 H 10/24/20 11:54 BP 173/95 H 10/24/20 11:54 Pulse Ox 92 L 10/24/20 11:54 Weight: 316 lb 6.4 oz - Exam Physical Exam Comments:: General: Florian is a very uncomfortable appearing 30-year-old man in no acute distress. He is diaphoretic appearing, and is visibly shaking. Oropharynx is clear, mucous membranes are tacky to dry Neck: Supple, no lymphadenopathy Heart: Regular rate and rhythm, no murmurs Lungs: Clear to auscultation throughout Abdomen soft, he does have some epigastric tenderness, but normal bowel sounds throughout, no organomegaly detected Neurological: He is moving all his extremities normally, cranial nerves II through XII are intact grossly. He is able to have a complete conversation with me, does not show any signs of delirium - Patient Data Lab Results Last 24 hrs: Laboratory Results - last 24 hr 10/24/20 10/24/20 10/24/20 Range/Units 10:04 10:04 10:04 WBC 7.5 (5.0-10.0) 10^3/uL RBC 5.15 (4.6-6.2) 10^6/uL Hgb 16.3 (14.0-18.0) g/dL Hct 48.6 (40.0-54.0) % MCV 94.4 D (80-100) fL MCH 31.7 (27.0-34.0) pg MCHC 33.5 (33.0-35.0) g/dL Plt Count 171 (150-450) 10^3/uL Neut % (Auto) 77.3 H (42.2-75.2) % Lymph % (Auto) 13.5 L (20.5-50.1) % Powell % (Auto) 8.2 H (2-8) % Eos % (Auto) 0.1 L (1.0-3.0) % Baso % (Auto) 0.9 (0.0-1.0) % PT 11.2 (9.0-12.0) SEC INR 1.1 (0.9-1.2) APTT 22.5 (22.0-34.0) SEC Sodium 140 (136-145) mmol/L Potassium 3.1 L (3.5-5.1) mmol/L Chloride 96 L (98-107) mmol/L Carbon Dioxide 23 (21-32) mmol/L Anion Gap 24.1 H (7-13) mEq/L BUN 3 L (7-18) mg/dL Creatinine 0.97 (0.70-1.30) mg/dL Est Cr Clr Drug Dosing TNP Estimated GFR (MDRD) > 60 BUN/Creatinine Ratio 3.1 (No establ ref range) Glucose 151 H (70-99) mg/dL Calcium 8.8 (8.5-10.1) mg/dL Total Bilirubin 1.4 H (0.2-1.0) mg/dL AST 353 H (15-37) U/L ALT 160 H (16-63) U/L Alkaline Phosphatase 150 H (46-116) U/L Total Protein 8.9 H (6.4-8.2) g/dL Albumin 3.9 (3.4-5.0) g/dL Globulin 5.0 Albumin/Globulin Ratio 0.8 Amylase 35 (25-115) U/L Lipase 148 (73-393) U/L Urine Color (YELLOW) Urine Appearance (CLEAR) Urine pH (5.0-9.0) Ur Specific [place] (1.005-1.030) Urine Protein (NEGATIVE) Urine Glucose (UA) (NEGATIVE) Urine Ketones (NEGATIVE) Urine Occult Blood (NEGATIVE) Urine Nitrite (NEGATIVE) Urine Bilirubin (NEGATIVE) Urine Urobilinogen (0.2-1.0) mg/dL Ur Leukocyte Esterase (NEGATIVE) Urine RBC /HPF Urine WBC (0-5/HPF) /HPF Ur Epithelial Cells (NOT SEEN) /HPF Urine Bacteria (0-FEW/HPF) /HPF Salicylates (2.8-20(Therapeutic)) mg/dL Urine Opiates Screen (NEGATIVE) Ur Oxycodone Screen (NEGATIVE) Urine Methadone Screen (NEGATIVE) Acetaminophen 0 L (10-30 (Therapeutic)) ug/mL Ur Barbiturates Screen (NEGATIVE) U Tricyclic Antidepress (NEGATIVE) Ur Phencyclidine Scrn (NEGATIVE) Ur Amphetamine Screen (NEGATIVE) U Methamphetamines Scrn (NEGATIVE) Urine MDMA Screen (NEGATIVE) U Benzodiazepines Scrn (NEGATIVE) Urine Cocaine Screen (NEGATIVE) U Marijuana (THC) Screen (NEGATIVE) Ethyl Alcohol 139 (0) mg/dL SARS-CoV-2 RNA (AIME) (NEGATIVE) 10/24/20 10/24/20 10/24/20 Range/Units 10:04 11:50 13:53 WBC (5.0-10.0) 10^3/uL RBC (4.6-6.2) 10^6/uL Hgb (14.0-18.0) g/dL Hct (40.0-54.0) % MCV (80-100) fL MCH (27.0-34.0) pg MCHC (33.0-35.0) g/dL Plt Count (150-450) 10^3/uL Neut % (Auto) (42.2-75.2) % Lymph % (Auto) (20.5-50.1) % Powell % (Auto) (2-8) % Eos % (Auto) (1.0-3.0) % Baso % (Auto) (0.0-1.0) % PT (9.0-12.0) SEC INR (0.9-1.2) APTT (22.0-34.0) SEC Sodium (136-145) mmol/L Potassium (3.5-5.1) mmol/L Chloride (98-107) mmol/L Carbon Dioxide (21-32) mmol/L Anion Gap (7-13) mEq/L BUN (7-18) mg/dL Creatinine (0.70-1.30) mg/dL Est Cr Clr Drug Dosing Estimated GFR (MDRD) BUN/Creatinine Ratio (No establ ref range) Glucose (70-99) mg/dL Calcium (8.5-10.1) mg/dL Total Bilirubin (0.2-1.0) mg/dL AST (15-37) U/L ALT (16-63) U/L Alkaline Phosphatase (46-116) U/L Total Protein (6.4-8.2) g/dL Albumin (3.4-5.0) g/dL Globulin Albumin/Globulin Ratio Amylase (25-115) U/L Lipase (73-393) U/L Urine Color Yellow (YELLOW) Urine Appearance Clear (CLEAR) Urine pH 7.0 (5.0-9.0) Ur Specific [place] 1.020 (1.005-1.030) Urine Protein >=300 H (NEGATIVE) Urine Glucose (UA) Negative (NEGATIVE) Urine Ketones 15 H (NEGATIVE) Urine Occult Blood Trace-intact H (NEGATIVE) Urine Nitrite Negative (NEGATIVE) Urine Bilirubin Small H (NEGATIVE) Urine Urobilinogen 4.0 H (0.2-1.0) mg/dL Ur Leukocyte Esterase Negative (NEGATIVE) Urine RBC 5-10 H /HPF Urine WBC 0-5 (0-5/HPF) /HPF Ur Epithelial Cells Rare (NOT SEEN) /HPF Urine Bacteria Rare (0-FEW/HPF) /HPF Salicylates < 2.8 L (2.8-20(Therapeutic)) mg/dL Urine Opiates Screen (NEGATIVE) Ur Oxycodone Screen (NEGATIVE) Urine Methadone Screen (NEGATIVE) Acetaminophen (10-30 (Therapeutic)) ug/mL Ur Barbiturates Screen (NEGATIVE) U Tricyclic Antidepress (NEGATIVE) Ur Phencyclidine Scrn (NEGATIVE) Ur Amphetamine Screen (NEGATIVE) U Methamphetamines Scrn (NEGATIVE) Urine MDMA Screen (NEGATIVE) U Benzodiazepines Scrn (NEGATIVE) Urine Cocaine Screen (NEGATIVE) U Marijuana (THC) Screen (NEGATIVE) Ethyl Alcohol (0) mg/dL SARS-CoV-2 RNA (AIME) Negative (NEGATIVE) 10/24/20 Range/Units 13:53 WBC (5.0-10.0) 10^3/uL RBC (4.6-6.2) 10^6/uL Hgb (14.0-18.0) g/dL Hct (40.0-54.0) % MCV (80-100) fL MCH (27.0-34.0) pg MCHC (33.0-35.0) g/dL Plt Count (150-450) 10^3/uL Neut % (Auto) (42.2-75.2) % Lymph % (Auto) (20.5-50.1) % Powell % (Auto) (2-8) % Eos % (Auto) (1.0-3.0) % Baso % (Auto) (0.0-1.0) % PT (9.0-12.0) SEC INR (0.9-1.2) APTT (22.0-34.0) SEC Sodium (136-145) mmol/L Potassium (3.5-5.1) mmol/L Chloride (98-107) mmol/L Carbon Dioxide (21-32) mmol/L Anion Gap (7-13) mEq/L BUN (7-18) mg/dL Creatinine (0.70-1.30) mg/dL Est Cr Clr Drug Dosing Estimated GFR (MDRD) BUN/Creatinine Ratio (No establ ref range) Glucose (70-99) mg/dL Calcium (8.5-10.1) mg/dL Total Bilirubin (0.2-1.0) mg/dL AST (15-37) U/L ALT (16-63) U/L Alkaline Phosphatase (46-116) U/L Total Protein (6.4-8.2) g/dL Albumin (3.4-5.0) g/dL Globulin Albumin/Globulin Ratio Amylase (25-115) U/L Lipase (73-393) U/L Urine Color (YELLOW) Urine Appearance (CLEAR) Urine pH (5.0-9.0) Ur Specific [place] (1.005-1.030) Urine Protein (NEGATIVE) Urine Glucose (UA) (NEGATIVE) Urine Ketones (NEGATIVE) Urine Occult Blood (NEGATIVE) Urine Nitrite (NEGATIVE) Urine Bilirubin (NEGATIVE) Urine Urobilinogen (0.2-1.0) mg/dL Ur Leukocyte Esterase (NEGATIVE) Urine RBC /HPF Urine WBC (0-5/HPF) /HPF Ur Epithelial Cells (NOT SEEN) /HPF Urine Bacteria (0-FEW/HPF) /HPF Salicylates (2.8-20(Therapeutic)) mg/dL Urine Opiates Screen Negative (NEGATIVE) Ur Oxycodone Screen Negative (NEGATIVE) Urine Methadone Screen Negative (NEGATIVE) Acetaminophen (10-30 (Therapeutic)) ug/mL Ur Barbiturates Screen Negative (NEGATIVE) U Tricyclic Antidepress Negative (NEGATIVE) Ur Phencyclidine Scrn Negative (NEGATIVE) Ur Amphetamine Screen Negative (NEGATIVE) U Methamphetamines Scrn Negative (NEGATIVE) Urine MDMA Screen Negative (NEGATIVE) U Benzodiazepines Scrn Positive H (NEGATIVE) Urine Cocaine Screen Negative (NEGATIVE) U Marijuana (THC) Screen Negative (NEGATIVE) Ethyl Alcohol (0) mg/dL SARS-CoV-2 RNA (AIME) (NEGATIVE) Result Diagrams: 10/24/20 10:04 10/24/20 10:04 - Problem List (1) Alcohol withdrawal SNOMED Code(s): 241440180 ICD Code: F10.239 - ALCOHOL DEPENDENCE WITH WITHDRAWAL, UNSPECIFIED Status: Acute Current Visit: No Qualifiers: Complication of substance-induced condition: with unspecified complication Qualified Code(s): F10.239 - Alcohol dependence with withdrawal, unspecified (2) Dehydration SNOMED Code(s): 90459731 ICD Code: E86.0 - DEHYDRATION Status: Acute Current Visit: No Problem List Initiated/Reviewed/Updated: Yes Orders Last 24hrs: Active Orders 24 hr Category Date Time Status Admission Diagnosis [ADT] Routine ADT 10/24/20 11:01 Ordered Admission Status [Patient Status] [ADT] Routine ADT 10/24/20 11:01 Active Aspiration Precautions [RC] ASDIRECTED Care 10/24/20 11:54 Active CIWAA Assessment [RC] Q1H Care 10/24/20 11:56 Active Intake and Output [RC] QSHIFT Care 10/24/20 11:58 Active Notify Provider [RC] PRN Care 10/24/20 11:54 Active Oxygen Therapy [RC] PRN Care 10/24/20 11:54 Active Peripheral IV Care [RC] . DIRECTED Care 10/24/20 09:51 Active Up ad Alysia [RC] ASDIRECTED Care 10/24/20 11:56 Active VTE/DVT Education [RC] PER UNIT ROUTINE Care 10/24/20 11:54 Active Vital Signs [RC] Q4H Care 10/24/20 11:54 Active Clear Liquid Diet [DIET] Diet 10/24/20 Lunch Active COMPREHENSIVE METABOLIC PN,CMP [CHEM] AM Lab 10/25/20 05:11 Ordered MAGNESIUM [CHEM] AM Lab 10/25/20 05:11 Ordered PHOSPHORUS [CHEM] AM Lab 10/25/20 05:11 Ordered Enoxaparin [Lovenox] Med 10/24/20 12:00 Active 40 mg SUBCUT DAILY LORazepam [Ativan] Med 10/24/20 11:54 Active See Protocol IV TITRATE PRN LORazepam [Ativan] Med 10/24/20 13:34 Active See Protocol PO ASDIRECTED PRN Lactated Ringers [Ringers, Lactated] 1,000 ml Med 10/24/20 15:00 Active IV ASDIRECTED Multivitamins,Therapeutic [Thera] Med 10/25/20 09:00 Active 1 each PO DAILY Ondansetron [Zofran] Med 10/24/20 11:56 Active 4 mg IVPUSH Q4H PRN Pantoprazole [ProTONIX IV] 40 mg Med 10/24/20 17:00 Stop Req Sodium Chloride 0.9% [Normal Saline] 100 ml IV Q5H Sodium Chloride 0.9% [Saline Flush] Med 10/24/20 09:51 Active 10 ml FLUSH ASDIRECTED PRN Thiamine [Vitamin B-1] 100 mg Med 10/25/20 09:00 Active Sodium Chloride 0.9% [Normal Saline] 50 ml IV DAILY Peripheral IV Insertion Adult [OM.PC] Stat Oth 10/24/20 09:50 Ordered Seizure Precautions [OM.PC] Stat Oth 10/24/20 11:54 Ordered Resuscitation Status Routine Resus Stat 10/24/20 11:54 Ordered Medication Orders Enoxaparin Sodium (Enoxaparin 40 Mg/0.4 Ml Syringe) 40 mg SUBCUT DAILY REGI Last Admin: 10/24/20 14:08 Dose: 40 mg Documented by: REHANA Thiamine HCl 100 mg/ Sodium (Chloride) 51 mls @ 100 mls/hr IV DAILY REGI Lactated Ringer's (Ringers, Lactated) 1,000 mls @ 125 mls/hr IV ASDIRECTED REGI Last Admin: 10/24/20 15:39 Dose: 125 mls/hr Documented by: REHANA Pantoprazole Sodium 40 mg/ (Sodium Chloride) 100 mls @ 20 mls/hr IV Q5H REGI Lorazepam (Lorazepam 2 Mg/Ml Sdv) 0 mg IV TITRATE PRN; Protocol PRN Reason: alcohol withdrawal Last Admin: 10/24/20 15:34 Dose: 1 mg Documented by: Admin: 10/24/20 14:33 Dose: 1 mg Documented by: REHANA Lorazepam (Lorazepam 1 Mg Tab) 0 mg PO ASDIRECTED PRN; Protocol PRN Reason: Agitation Multivitamins (Multivitamins,Therapeutic Tab) 1 each PO DAILY REGI Ondansetron HCl (Ondansetron 4 Mg/2 Ml Sdv) 4 mg IVPUSH Q4H PRN PRN Reason: Nausea/Vomiting Sodium Chloride (Sodium Chloride 0.9% 10 Ml Syringe) 10 ml FLUSH ASDIRECTED PRN PRN Reason: Keep Vein Open Last Admin: 10/24/20 15:35 Dose: 10 ml Documented by: Admin: 10/24/20 14:33 Dose: 10 ml Documented by: Admin: 10/24/20 14:11 Dose: 10 ml Documented by: Admin: 10/24/20 10:26 Dose: 10 ml Documented by: INGRID Assessment/Plan Comment:: Assessment: 1. 30-year-old man with longstanding history of chronic alcohol abuse, requesting detox 2. Moderate dehydration secondary to #1, resolving Plan: 1. He is admitted to acute inpatient 2. We will monitor his symptoms via CIWA monitoring. I am concerned that he is already having withdrawal symptoms even though his last alcoholic drink was around 6 hours ago. Because he is already having so many symptoms, we will use the Ativan dosing instead of the oral Librium. 3. He is still showing signs of dehydration, we will go forward with maintenance fluids at lactated Ringer's of 125 cc/hr. 4. Recheck metabolic panel in the a.m.
[2020-10-24] MEDS: LORazepam 1 MG Tab PO PRN (19:44)
[2020-10-24] MEDS: Ondansetron 4 MG/2 ML SDV IVPUSH PRN (21:10)
[2020-10-25] MEDS ORDERED: Metoclopramide 10 MG/2 ML SDV IVPUSH ONE (00:15)
[2020-10-25] MEDS: LORazepam 1 MG Tab PO PRN ×2 (04:55→22:58)
[2020-10-25] MEDS: Ondansetron 4 MG/2 ML SDV IVPUSH PRN ×2 (04:56→20:32)
[2020-10-25 06:51] LABS: ANION GAP 16.3 mEq/L (7-13); CHLORIDE,CL 98 mmol/L (98-107); SODIUM,NA 140 mmol/L (136-145)
[2020-10-25] MEDS ORDERED: Potassium Chloride 10 MEQ Tab.ER PO ONE (08:04)
--- NOTE | 2020-10-25 08:11 | PCM.PN ---
- General Info Date of Service: 10/25/20 Admission Dx/Problem (Free Text): Admission Diagnosis/Problem Admission Diagnosis/Problem Alcohol withdrawal syndrome Subjective Update: Believes that he is doing okay. Denies any auditory, visual, tactile hallucinations. Feels shaky at times. No overnight events. No specific nursing concerns at this time. Functional Status: Reports: Tolerating Diet. Denies: New Symptoms - Review of Systems General: Denies: Fever HEENT: Reports: No Symptoms Pulmonary: Reports: No Symptoms Cardiovascular: Reports: No Symptoms Gastrointestinal: Reports: No Symptoms Genitourinary: Reports: No Symptoms Musculoskeletal: Reports: No Symptoms Skin: Reports: No Symptoms Neurological: Reports: Tremors. Denies: Seizure Psychiatric: Reports: No Symptoms - Patient Data Vitals - Most Recent: Last Vital Signs Temp 97.0 F 10/25/20 05:05 Pulse 86 10/25/20 05:05 Resp 18 10/25/20 05:05 BP 169/90 H 10/25/20 05:05 Pulse Ox 92 L 10/25/20 05:05 Weight - Most Recent: 316 lb 6.4 oz I&O - Last 24 Hours: Intake & Output 10/24/20 10/25/20 10/25/20 22:59 06:59 14:59 Intake Total 710 300 Balance 710 300 Lab Results Last 24 Hours: Laboratory Results - last 24 hr 10/24/20 10/24/20 10/24/20 Range/Units 10:04 10:04 10:04 WBC 7.5 (5.0-10.0) 10^3/uL RBC 5.15 (4.6-6.2) 10^6/uL Hgb 16.3 (14.0-18.0) g/dL Hct 48.6 (40.0-54.0) % MCV 94.4 D (80-100) fL MCH 31.7 (27.0-34.0) pg MCHC 33.5 (33.0-35.0) g/dL Plt Count 171 (150-450) 10^3/uL Neut % (Auto) 77.3 H (42.2-75.2) % Lymph % (Auto) 13.5 L (20.5-50.1) % [place] % (Auto) 8.2 H (2-8) % Eos % (Auto) 0.1 L (1.0-3.0) % Baso % (Auto) 0.9 (0.0-1.0) % PT 11.2 (9.0-12.0) SEC INR 1.1 (0.9-1.2) APTT 22.5 (22.0-34.0) SEC Sodium 140 (136-145) mmol/L Potassium 3.1 L (3.5-5.1) mmol/L Chloride 96 L (98-107) mmol/L Carbon Dioxide 23 (21-32) mmol/L Anion Gap 24.1 H (7-13) mEq/L BUN 3 L (7-18) mg/dL Creatinine 0.97 (0.70-1.30) mg/dL Est Cr Clr Drug Dosing TNP Estimated GFR (MDRD) > 60 BUN/Creatinine Ratio 3.1 (No establ ref range) Glucose 151 H (70-99) mg/dL Calcium 8.8 (8.5-10.1) mg/dL Phosphorus (2.6-4.7) mg/dL Magnesium (1.8-2.4) mg/dL Total Bilirubin 1.4 H (0.2-1.0) mg/dL AST 353 H (15-37) U/L ALT 160 H (16-63) U/L Alkaline Phosphatase 150 H (46-116) U/L Total Protein 8.9 H (6.4-8.2) g/dL Albumin 3.9 (3.4-5.0) g/dL Globulin 5.0 Albumin/Globulin Ratio 0.8 Amylase 35 (25-115) U/L Lipase 148 (73-393) U/L Urine Color (YELLOW) Urine Appearance (CLEAR) Urine pH (5.0-9.0) Ur Specific [place] (1.005-1.030) Urine Protein (NEGATIVE) Urine Glucose (UA) (NEGATIVE) Urine Ketones (NEGATIVE) Urine Occult Blood (NEGATIVE) Urine Nitrite (NEGATIVE) Urine Bilirubin (NEGATIVE) Urine Urobilinogen (0.2-1.0) mg/dL Ur Leukocyte Esterase (NEGATIVE) Urine RBC /HPF Urine WBC (0-5/HPF) /HPF Ur Epithelial Cells (NOT SEEN) /HPF Urine Bacteria (0-FEW/HPF) /HPF Salicylates (2.8-20(Therapeutic)) mg/dL Urine Opiates Screen (NEGATIVE) Ur Oxycodone Screen (NEGATIVE) Urine Methadone Screen (NEGATIVE) Acetaminophen 0 L (10-30 (Therapeutic)) ug/mL Ur Barbiturates Screen (NEGATIVE) U Tricyclic Antidepress (NEGATIVE) Ur Phencyclidine Scrn (NEGATIVE) Ur Amphetamine Screen (NEGATIVE) U Methamphetamines Scrn (NEGATIVE) Urine MDMA Screen (NEGATIVE) U Benzodiazepines Scrn (NEGATIVE) Urine Cocaine Screen (NEGATIVE) U Marijuana (THC) Screen (NEGATIVE) Ethyl Alcohol 139 (0) mg/dL SARS-CoV-2 RNA (AIME) (NEGATIVE) 10/24/20 10/24/20 10/24/20 Range/Units 10:04 11:50 13:53 WBC (5.0-10.0) 10^3/uL RBC (4.6-6.2) 10^6/uL Hgb (14.0-18.0) g/dL Hct (40.0-54.0) % MCV (80-100) fL MCH (27.0-34.0) pg MCHC (33.0-35.0) g/dL Plt Count (150-450) 10^3/uL Neut % (Auto) (42.2-75.2) % Lymph % (Auto) (20.5-50.1) % [place] % (Auto) (2-8) % Eos % (Auto) (1.0-3.0) % Baso % (Auto) (0.0-1.0) % PT (9.0-12.0) SEC INR (0.9-1.2) APTT (22.0-34.0) SEC Sodium (136-145) mmol/L Potassium (3.5-5.1) mmol/L Chloride (98-107) mmol/L Carbon Dioxide (21-32) mmol/L Anion Gap (7-13) mEq/L BUN (7-18) mg/dL Creatinine (0.70-1.30) mg/dL Est Cr Clr Drug Dosing Estimated GFR (MDRD) BUN/Creatinine Ratio (No establ ref range) Glucose (70-99) mg/dL Calcium (8.5-10.1) mg/dL Phosphorus (2.6-4.7) mg/dL Magnesium (1.8-2.4) mg/dL Total Bilirubin (0.2-1.0) mg/dL AST (15-37) U/L ALT (16-63) U/L Alkaline Phosphatase (46-116) U/L Total Protein (6.4-8.2) g/dL Albumin (3.4-5.0) g/dL Globulin Albumin/Globulin Ratio Amylase (25-115) U/L Lipase (73-393) U/L Urine Color Yellow (YELLOW) Urine Appearance Clear (CLEAR) Urine pH 7.0 (5.0-9.0) Ur Specific [place] 1.020 (1.005-1.030) Urine Protein >=300 H (NEGATIVE) Urine Glucose (UA) Negative (NEGATIVE) Urine Ketones 15 H (NEGATIVE) Urine Occult Blood Trace-intact H (NEGATIVE) Urine Nitrite Negative (NEGATIVE) Urine Bilirubin Small H (NEGATIVE) Urine Urobilinogen 4.0 H (0.2-1.0) mg/dL Ur Leukocyte Esterase Negative (NEGATIVE) Urine RBC 5-10 H /HPF Urine WBC 0-5 (0-5/HPF) /HPF Ur Epithelial Cells Rare (NOT SEEN) /HPF Urine Bacteria Rare (0-FEW/HPF) /HPF Salicylates < 2.8 L (2.8-20(Therapeutic)) mg/dL Urine Opiates Screen (NEGATIVE) Ur Oxycodone Screen (NEGATIVE) Urine Methadone Screen (NEGATIVE) Acetaminophen (10-30 (Therapeutic)) ug/mL Ur Barbiturates Screen (NEGATIVE) U Tricyclic Antidepress (NEGATIVE) Ur Phencyclidine Scrn (NEGATIVE) Ur Amphetamine Screen (NEGATIVE) U Methamphetamines Scrn (NEGATIVE) Urine MDMA Screen (NEGATIVE) U Benzodiazepines Scrn (NEGATIVE) Urine Cocaine Screen (NEGATIVE) U Marijuana (THC) Screen (NEGATIVE) Ethyl Alcohol (0) mg/dL SARS-CoV-2 RNA (AIME) Negative (NEGATIVE) 10/24/20 10/25/20 Range/Units 13:53 05:45 WBC (5.0-10.0) 10^3/uL RBC (4.6-6.2) 10^6/uL Hgb (14.0-18.0) g/dL Hct (40.0-54.0) % MCV (80-100) fL MCH (27.0-34.0) pg MCHC (33.0-35.0) g/dL Plt Count (150-450) 10^3/uL Neut % (Auto) (42.2-75.2) % Lymph % (Auto) (20.5-50.1) % [place] % (Auto) (2-8) % Eos % (Auto) (1.0-3.0) % Baso % (Auto) (0.0-1.0) % PT (9.0-12.0) SEC INR (0.9-1.2) APTT (22.0-34.0) SEC Sodium 140 (136-145) mmol/L Potassium 3.3 L (3.5-5.1) mmol/L Chloride 98 (98-107) mmol/L Carbon Dioxide 29 (21-32) mmol/L Anion Gap 16.3 H (7-13) mEq/L BUN 7 (7-18) mg/dL Creatinine 0.88 (0.70-1.30) mg/dL Est Cr Clr Drug Dosing 144.01 Estimated GFR (MDRD) > 60 BUN/Creatinine Ratio 8.0 (No establ ref range) Glucose 95 (70-99) mg/dL Calcium 8.7 (8.5-10.1) mg/dL Phosphorus 3.8 (2.6-4.7) mg/dL Magnesium 1.4 L (1.8-2.4) mg/dL Total Bilirubin 2.8 H (0.2-1.0) mg/dL AST 215 H (15-37) U/L ALT 112 H (16-63) U/L Alkaline Phosphatase 118 H (46-116) U/L Total Protein 7.2 (6.4-8.2) g/dL Albumin 3.3 L (3.4-5.0) g/dL Globulin 3.9 Albumin/Globulin Ratio 0.85 Amylase (25-115) U/L Lipase (73-393) U/L Urine Color (YELLOW) Urine Appearance (CLEAR) Urine pH (5.0-9.0) Ur Specific [place] (1.005-1.030) Urine Protein (NEGATIVE) Urine Glucose (UA) (NEGATIVE) Urine Ketones (NEGATIVE) Urine Occult Blood (NEGATIVE) Urine Nitrite (NEGATIVE) Urine Bilirubin (NEGATIVE) Urine Urobilinogen (0.2-1.0) mg/dL Ur Leukocyte Esterase (NEGATIVE) Urine RBC /HPF Urine WBC (0-5/HPF) /HPF Ur Epithelial Cells (NOT SEEN) /HPF Urine Bacteria (0-FEW/HPF) /HPF Salicylates (2.8-20(Therapeutic)) mg/dL Urine Opiates Screen Negative (NEGATIVE) Ur Oxycodone Screen Negative (NEGATIVE) Urine Methadone Screen Negative (NEGATIVE) Acetaminophen (10-30 (Therapeutic)) ug/mL Ur Barbiturates Screen Negative (NEGATIVE) U Tricyclic Antidepress Negative (NEGATIVE) Ur Phencyclidine Scrn Negative (NEGATIVE) Ur Amphetamine Screen Negative (NEGATIVE) U Methamphetamines Scrn Negative (NEGATIVE) Urine MDMA Screen Negative (NEGATIVE) U Benzodiazepines Scrn Positive H (NEGATIVE) Urine Cocaine Screen Negative (NEGATIVE) U Marijuana (THC) Screen Negative (NEGATIVE) Ethyl Alcohol (0) mg/dL SARS-CoV-2 RNA (AIME) (NEGATIVE) Med Orders - Current: Current Medications Enoxaparin Sodium (Enoxaparin 40 Mg/0.4 Ml Syringe) 40 mg SUBCUT DAILY REGI Last Admin: 10/24/20 14:08 Dose: 40 mg Documented by: Thiamine HCl 100 mg/ Sodium (Chloride) 51 mls @ 100 mls/hr IV DAILY [facility] Lactated Ringer's (Ringers, Lactated) 1,000 mls @ 125 mls/hr IV ASDIRECTED REGI Last Admin: 10/24/20 23:54 Dose: 125 mls/hr Documented by: Magnesium Sulfate/Dextrose 1 (gm/ Premix) 100 mls @ 100 mls/hr IV ONETIME ONE Stop: 10/25/20 09:04 Lorazepam (Lorazepam 2 Mg/Ml Sdv) 0 mg IV TITRATE PRN; Protocol PRN Reason: alcohol withdrawal Last Admin: 10/24/20 21:10 Dose: 2 mg Documented by: Lorazepam (Lorazepam 1 Mg Tab) 0 mg PO ASDIRECTED PRN; Protocol PRN Reason: Agitation Last Admin: 10/25/20 04:55 Dose: 2 mg Documented by: Multivitamins (Multivitamins,Therapeutic Tab) 1 each PO DAILY [facility] Ondansetron HCl (Ondansetron 4 Mg/2 Ml Sdv) 4 mg IVPUSH Q4H PRN PRN Reason: Nausea/Vomiting Last Admin: 10/25/20 04:56 Dose: 4 mg Documented by: Potassium Chloride (Potassium Chloride 10 Meq Tab.Er) 40 meq PO ONETIME ONE Stop: 10/25/20 08:05 Sodium Chloride (Sodium Chloride 0.9% 10 Ml Syringe) 10 ml FLUSH ASDIRECTED PRN PRN Reason: Keep Vein Open Last Admin: 10/24/20 15:35 Dose: 10 ml Documented by: Discontinued Medications Multivitamins/Minerals 10 ml/Thiamine HCl 100 mg/ Folic Acid 1 mg/ Lactated Ringer's 1,011.2 mls @ 999 mls/hr IV .BOLUS ONE Stop: 10/24/20 10:51 Last Admin: 10/24/20 10:25 Dose: 999 mls/hr Documented by: Pantoprazole Sodium 40 mg/ (Sodium Chloride) 100 mls @ 20 mls/hr IV .CONTINUOS REGI Last Admin: 10/24/20 11:34 Dose: 20 mls/hr Documented by: Pantoprazole Sodium 40 mg/ (Sodium Chloride) 100 mls @ 20 mls/hr IV Q5H REGI Ketorolac Tromethamine (Ketorolac 30 Mg/Ml Sdv) 30 mg IVPUSH ONETIME ONE Stop: 10/24/20 13:35 Last Admin: 10/24/20 14:11 Dose: 30 mg Documented by: Lorazepam (Lorazepam 2 Mg/Ml Sdv) 1 mg IVPUSH ONETIME ONE Stop: 10/24/20 10:43 Last Admin: 10/24/20 11:10 Dose: 1 mg Documented by: Metoclopramide HCl (Metoclopramide 10 Mg/2 Ml Sdv) 10 mg IVPUSH ONETIME ONE Stop: 10/24/20 13:35 Last Admin: 10/24/20 14:10 Dose: 10 mg Documented by: Metoclopramide HCl (Metoclopramide 10 Mg/2 Ml Sdv) 10 mg IVPUSH ONETIME ONE Stop: 10/25/20 00:16 Last Admin: 10/25/20 00:22 Dose: 10 mg Documented by: Ondansetron HCl (Ondansetron 4 Mg/2 Ml Sdv) 4 mg IV ONETIME ONE Stop: 10/24/20 09:52 Last Admin: 10/24/20 10:24 Dose: 4 mg Documented by: Ondansetron HCl (Ondansetron 4 Mg/2 Ml Sdv) 4 mg IV ONETIME ONE Stop: 10/24/20 10:42 Last Admin: 10/24/20 11:11 Dose: 4 mg Documented by: Pantoprazole Sodium (Pantoprazole 40 Mg Vial) 80 mg IVPUSH .BOLUS ONE Stop: 10/24/20 09:58 Last Admin: 10/24/20 10:25 Dose: 80 mg Documented by: - Exam General: Alert, Oriented, No Acute Distress HEENT: Pupils Equal Neck: Supple Lungs: Clear to Auscultation, Normal Respiratory Effort Cardiovascular: Regular Rate, Regular Rhythm. No: Murmurs GI/Abdominal Exam: Normal Bowel Sounds, Soft Extremities: Normal Inspection Skin: Warm Neurological: Other (Tremulous in the hands and feet. No asterixis. No hallucinations.) Psy/Mental Status: Alert - Patient Data Lab Results Last 24 hrs: Laboratory Results - last 24 hr 10/24/20 10/24/20 10/24/20 Range/Units 10:04 10:04 10:04 WBC 7.5 (5.0-10.0) 10^3/uL RBC 5.15 (4.6-6.2) 10^6/uL Hgb 16.3 (14.0-18.0) g/dL Hct 48.6 (40.0-54.0) % MCV 94.4 D (80-100) fL MCH 31.7 (27.0-34.0) pg MCHC 33.5 (33.0-35.0) g/dL Plt Count 171 (150-450) 10^3/uL Neut % (Auto) 77.3 H (42.2-75.2) % Lymph % (Auto) 13.5 L (20.5-50.1) % [place] % (Auto) 8.2 H (2-8) % Eos % (Auto) 0.1 L (1.0-3.0) % Baso % (Auto) 0.9 (0.0-1.0) % PT 11.2 (9.0-12.0) SEC INR 1.1 (0.9-1.2) APTT 22.5 (22.0-34.0) SEC Sodium 140 (136-145) mmol/L Potassium 3.1 L (3.5-5.1) mmol/L Chloride 96 L (98-107) mmol/L Carbon Dioxide 23 (21-32) mmol/L Anion Gap 24.1 H (7-13) mEq/L BUN 3 L (7-18) mg/dL Creatinine 0.97 (0.70-1.30) mg/dL Est Cr Clr Drug Dosing TNP Estimated GFR (MDRD) > 60 BUN/Creatinine Ratio 3.1 (No establ ref range) Glucose 151 H (70-99) mg/dL Calcium 8.8 (8.5-10.1) mg/dL Phosphorus (2.6-4.7) mg/dL Magnesium (1.8-2.4) mg/dL Total Bilirubin 1.4 H (0.2-1.0) mg/dL AST 353 H (15-37) U/L ALT 160 H (16-63) U/L Alkaline Phosphatase 150 H (46-116) U/L Total Protein 8.9 H (6.4-8.2) g/dL Albumin 3.9 (3.4-5.0) g/dL Globulin 5.0 Albumin/Globulin Ratio 0.8 Amylase 35 (25-115) U/L Lipase 148 (73-393) U/L Urine Color (YELLOW) Urine Appearance (CLEAR) Urine pH (5.0-9.0) Ur Specific [place] (1.005-1.030) Urine Protein (NEGATIVE) Urine Glucose (UA) (NEGATIVE) Urine Ketones (NEGATIVE) Urine Occult Blood (NEGATIVE) Urine Nitrite (NEGATIVE) Urine Bilirubin (NEGATIVE) Urine Urobilinogen (0.2-1.0) mg/dL Ur Leukocyte Esterase (NEGATIVE) Urine RBC /HPF Urine WBC (0-5/HPF) /HPF Ur Epithelial Cells (NOT SEEN) /HPF Urine Bacteria (0-FEW/HPF) /HPF Salicylates (2.8-20(Therapeutic)) mg/dL Urine Opiates Screen (NEGATIVE) Ur Oxycodone Screen (NEGATIVE) Urine Methadone Screen (NEGATIVE) Acetaminophen 0 L (10-30 (Therapeutic)) ug/mL Ur Barbiturates Screen (NEGATIVE) U Tricyclic Antidepress (NEGATIVE) Ur Phencyclidine Scrn (NEGATIVE) Ur Amphetamine Screen (NEGATIVE) U Methamphetamines Scrn (NEGATIVE) Urine MDMA Screen (NEGATIVE) U Benzodiazepines Scrn (NEGATIVE) Urine Cocaine Screen (NEGATIVE) U Marijuana (THC) Screen (NEGATIVE) Ethyl Alcohol 139 (0) mg/dL SARS-CoV-2 RNA (AIME) (NEGATIVE) 10/24/20 10/24/20 10/24/20 Range/Units 10:04 11:50 13:53 WBC (5.0-10.0) 10^3/uL RBC (4.6-6.2) 10^6/uL Hgb (14.0-18.0) g/dL Hct (40.0-54.0) % MCV (80-100) fL MCH (27.0-34.0) pg MCHC (33.0-35.0) g/dL Plt Count (150-450) 10^3/uL Neut % (Auto) (42.2-75.2) % Lymph % (Auto) (20.5-50.1) % [place] % (Auto) (2-8) % Eos % (Auto) (1.0-3.0) % Baso % (Auto) (0.0-1.0) % PT (9.0-12.0) SEC INR (0.9-1.2) APTT (22.0-34.0) SEC Sodium (136-145) mmol/L Potassium (3.5-5.1) mmol/L Chloride (98-107) mmol/L Carbon Dioxide (21-32) mmol/L Anion Gap (7-13) mEq/L BUN (7-18) mg/dL Creatinine (0.70-1.30) mg/dL Est Cr Clr Drug Dosing Estimated GFR (MDRD) BUN/Creatinine Ratio (No establ ref range) Glucose (70-99) mg/dL Calcium (8.5-10.1) mg/dL Phosphorus (2.6-4.7) mg/dL Magnesium (1.8-2.4) mg/dL Total Bilirubin (0.2-1.0) mg/dL AST (15-37) U/L ALT (16-63) U/L Alkaline Phosphatase (46-116) U/L Total Protein (6.4-8.2) g/dL Albumin (3.4-5.0) g/dL Globulin Albumin/Globulin Ratio Amylase (25-115) U/L Lipase (73-393) U/L Urine Color Yellow (YELLOW) Urine Appearance Clear (CLEAR) Urine pH 7.0 (5.0-9.0) Ur Specific [place] 1.020 (1.005-1.030) Urine Protein >=300 H (NEGATIVE) Urine Glucose (UA) Negative (NEGATIVE) Urine Ketones 15 H (NEGATIVE) Urine Occult Blood Trace-intact H (NEGATIVE) Urine Nitrite Negative (NEGATIVE) Urine Bilirubin Small H (NEGATIVE) Urine Urobilinogen 4.0 H (0.2-1.0) mg/dL Ur Leukocyte Esterase Negative (NEGATIVE) Urine RBC 5-10 H /HPF Urine WBC 0-5 (0-5/HPF) /HPF Ur Epithelial Cells Rare (NOT SEEN) /HPF Urine Bacteria Rare (0-FEW/HPF) /HPF Salicylates < 2.8 L (2.8-20(Therapeutic)) mg/dL Urine Opiates Screen (NEGATIVE) Ur Oxycodone Screen (NEGATIVE) Urine Methadone Screen (NEGATIVE) Acetaminophen (10-30 (Therapeutic)) ug/mL Ur Barbiturates Screen (NEGATIVE) U Tricyclic Antidepress (NEGATIVE) Ur Phencyclidine Scrn (NEGATIVE) Ur Amphetamine Screen (NEGATIVE) U Methamphetamines Scrn (NEGATIVE) Urine MDMA Screen (NEGATIVE) U Benzodiazepines Scrn (NEGATIVE) Urine Cocaine Screen (NEGATIVE) U Marijuana (THC) Screen (NEGATIVE) Ethyl Alcohol (0) mg/dL SARS-CoV-2 RNA (AIME) Negative (NEGATIVE) 10/24/20 10/25/20 Range/Units 13:53 05:45 WBC (5.0-10.0) 10^3/uL RBC (4.6-6.2) 10^6/uL Hgb (14.0-18.0) g/dL Hct (40.0-54.0) % MCV (80-100) fL MCH (27.0-34.0) pg MCHC (33.0-35.0) g/dL Plt Count (150-450) 10^3/uL Neut % (Auto) (42.2-75.2) % Lymph % (Auto) (20.5-50.1) % [place] % (Auto) (2-8) % Eos % (Auto) (1.0-3.0) % Baso % (Auto) (0.0-1.0) % PT (9.0-12.0) SEC INR (0.9-1.2) APTT (22.0-34.0) SEC Sodium 140 (136-145) mmol/L Potassium 3.3 L (3.5-5.1) mmol/L Chloride 98 (98-107) mmol/L Carbon Dioxide 29 (21-32) mmol/L Anion Gap 16.3 H (7-13) mEq/L BUN 7 (7-18) mg/dL Creatinine 0.88 (0.70-1.30) mg/dL Est Cr Clr Drug Dosing 144.01 Estimated GFR (MDRD) > 60 BUN/Creatinine Ratio 8.0 (No establ ref range) Glucose 95 (70-99) mg/dL Calcium 8.7 (8.5-10.1) mg/dL Phosphorus 3.8 (2.6-4.7) mg/dL Magnesium 1.4 L (1.8-2.4) mg/dL Total Bilirubin 2.8 H (0.2-1.0) mg/dL AST 215 H (15-37) U/L ALT 112 H (16-63) U/L Alkaline Phosphatase 118 H (46-116) U/L Total Protein 7.2 (6.4-8.2) g/dL Albumin 3.3 L (3.4-5.0) g/dL Globulin 3.9 Albumin/Globulin Ratio 0.85 Amylase (25-115) U/L Lipase (73-393) U/L Urine Color (YELLOW) Urine Appearance (CLEAR) Urine pH (5.0-9.0) Ur Specific [place] (1.005-1.030) Urine Protein (NEGATIVE) Urine Glucose (UA) (NEGATIVE) Urine Ketones (NEGATIVE) Urine Occult Blood (NEGATIVE) Urine Nitrite (NEGATIVE) Urine Bilirubin (NEGATIVE) Urine Urobilinogen (0.2-1.0) mg/dL Ur Leukocyte Esterase (NEGATIVE) Urine RBC /HPF Urine WBC (0-5/HPF) /HPF Ur Epithelial Cells (NOT SEEN) /HPF Urine Bacteria (0-FEW/HPF) /HPF Salicylates (2.8-20(Therapeutic)) mg/dL Urine Opiates Screen Negative (NEGATIVE) Ur Oxycodone Screen Negative (NEGATIVE) Urine Methadone Screen Negative (NEGATIVE) Acetaminophen (10-30 (Therapeutic)) ug/mL Ur Barbiturates Screen Negative (NEGATIVE) U Tricyclic Antidepress Negative (NEGATIVE) Ur Phencyclidine Scrn Negative (NEGATIVE) Ur Amphetamine Screen Negative (NEGATIVE) U Methamphetamines Scrn Negative (NEGATIVE) Urine MDMA Screen Negative (NEGATIVE) U Benzodiazepines Scrn Positive H (NEGATIVE) Urine Cocaine Screen Negative (NEGATIVE) U Marijuana (THC) Screen Negative (NEGATIVE) Ethyl Alcohol (0) mg/dL SARS-CoV-2 RNA (AIME) (NEGATIVE) Result Diagrams: 10/24/20 10:04 10/25/20 05:45 Sepsis Event Note - Evaluation Sepsis Screening Result: No Definite Risk - Focused Exam Vital Signs: Vital Signs Temp Pulse Resp BP Pulse Ox 10/25/20 05:05 97.0 F 86 18 169/90 H 92 L 10/25/20 00:30 161/79 H 10/25/20 00:00 97.2 F 91 20 177/103 H 94 L - Problem List Review Problem List Initiated/Reviewed/Updated: Yes - My Orders Last 24 Hours: My Active Orders 10/25/20 08:04 Potassium Chloride [Klor-Con 10] 40 meq PO ONETIME ONE 10/25/20 08:05 Magnesium Sulfate/D5W [Magnesium Sulfate in D5W 1 GM/100 ML] 1 gm Premix Bag 1 bag IV ONETIME - Plan Plan:: 30-year-old male admitted for acute alcohol detoxification; drinks 1 L of vodka per day. 1. Acute alcohol withdrawal. Continue CIWA protocol with as needed benzodiazepines. Hold off on scheduled additional therapies for now. CIWA scores mild to moderate currently. No hallucinations. No seizures. He does have seizure precautions in place in the event that one occurs. Monitor blood pressure and heart rate. Further alcohol cessation education. Case management consultation regarding further outpatient recovery services. 2. Hypokalemia and hypomagnesemia. Continue oral and IV replacement as needed. CODE STATUS: Full code. DVT prophylaxis both chemically mechanically.
[2020-10-25] MEDS: Lactated Ringers 1,000 ML IV SCH ×2 (08:21→19:38)
[2020-10-25] MEDS: Multivitamins,Therapeutic Tab PO SCH (08:39)
[2020-10-25] MEDS: Enoxaparin 40 MG/0.4 ML Syringe SUBCUT SCH (08:40)
[2020-10-25] MEDS ORDERED: Thiamine 100 MG in Sodium Chloride 0.9% 50 ML IV SCH (09:00)
[2020-10-25] MEDS: LORazepam 2 MG/ML SDV IV PRN ×2 (12:37→16:15)
[2020-10-25] MEDS ORDERED: Metoprolol Tartrate 5 MG/5 ML SDV IVPUSH PRN (17:20)
[2020-10-25] MEDS: Melatonin 3 MG Tab PO PRN (20:39)
[2020-10-25] MEDS: diphenhydrAMINE 50 MG Cap PO PRN (21:34)
[2020-10-26] MEDS: LORazepam 1 MG Tab PO PRN ×3 (02:55→17:36)
[2020-10-26] MEDS: Lactated Ringers 1,000 ML IV SCH (02:56)
[2020-10-26 07:02] LABS: ANION GAP 15.5 mEq/L (7-13); CHLORIDE,CL 98 mmol/L (98-107); SODIUM,NA 140 mmol/L (136-145)
--- NOTE | 2020-10-26 08:32 | PCM.PN ---
- General Info Date of Service: 10/26/20 Admission Dx/Problem (Free Text): Acute alcohol intoxication with signs of impending withdrawal. Alcohol dependence Subjective Update: Hospital day 3. Patient seen and examined at bedside. No acute events overnight. No specific nursing concerns. Minimal CIWA scores between 4 and 8. Medicated as appropriate with IV Ativan. Patient states that he is feeling better today. Less shaky. Denies any hallucinations. Does not endorse any specific complaints. More worried about seeing his son than anything. Would like to stay in the hospital to ensure that he gets into a recovery program once immediately discharged. - Review of Systems General: Reports: No Symptoms Pulmonary: Reports: No Symptoms Cardiovascular: Reports: No Symptoms Gastrointestinal: Reports: No Symptoms Musculoskeletal: Reports: No Symptoms Neurological: Reports: Tremors (Mild in the hands) Psychiatric: Reports: Anxiety (Anxious about wanting to seeing his son) - Patient Data Vitals - Most Recent: Last Vital Signs Temp 97.7 F 10/26/20 07:52 Pulse 105 H 10/26/20 07:52 Resp 16 10/26/20 07:52 BP 169/103 H 10/26/20 07:52 Pulse Ox 92 L 10/26/20 07:52 Weight - Most Recent: 316 lb 6.4 oz I&O - Last 24 Hours: Intake & Output 10/25/20 10/26/20 10/26/20 22:59 06:59 14:59 Intake Total 1800 500 Balance 1800 500 Lab Results Last 24 Hours: Laboratory Results - last 24 hr 10/26/20 Range/Units 05:45 Sodium 140 (136-145) mmol/L Potassium 3.5 (3.5-5.1) mmol/L Chloride 98 (98-107) mmol/L Carbon Dioxide 30 (21-32) mmol/L Anion Gap 15.5 H (7-13) mEq/L BUN 7 (7-18) mg/dL Creatinine 0.97 (0.70-1.30) mg/dL Est Cr Clr Drug Dosing 130.64 mL/min Estimated GFR (MDRD) > 60 Glucose 85 (70-99) mg/dL Calcium 9.1 (8.5-10.1) mg/dL Med Orders - Current: Current Medications Diphenhydramine HCl (Diphenhydramine 50 Mg Cap) 50 mg PO BEDTIME PRN PRN Reason: Insomnia Last Admin: 10/25/20 21:34 Dose: 50 mg Documented by: Enoxaparin Sodium (Enoxaparin 40 Mg/0.4 Ml Syringe) 40 mg SUBCUT DAILY ON LICENSE OF [facility] Last Admin: 10/25/20 08:40 Dose: 40 mg Documented by: Thiamine HCl 100 mg/ Sodium (Chloride) 51 mls @ 100 mls/hr IV DAILY ON LICENSE OF [facility] Last Admin: 10/25/20 08:38 Dose: 100 mls/hr Documented by: Lactated Ringer's (Ringers, Lactated) 1,000 mls @ 125 mls/hr IV ASDIRECTED ON LICENSE OF [facility] Last Admin: 10/26/20 02:56 Dose: 125 mls/hr Documented by: Lorazepam (Lorazepam 2 Mg/Ml Sdv) 0 mg IV TITRATE PRN; Protocol PRN Reason: alcohol withdrawal Last Admin: 10/25/20 16:15 Dose: 1 mg Documented by: Lorazepam (Lorazepam 1 Mg Tab) 0 mg PO ASDIRECTED PRN; Protocol PRN Reason: Agitation Last Admin: 10/26/20 02:55 Dose: 1 mg Documented by: Melatonin (Melatonin 3 Mg Tab) 6 mg PO BEDTIME PRN PRN Reason: Insomnia Last Admin: 10/25/20 20:39 Dose: 6 mg Documented by: Metoprolol Tartrate (Metoprolol Tartrate 5 Mg/5 Ml Sdv) 5 mg IVPUSH Q6H PRN PRN Reason: Hypertension Multivitamins (Multivitamins,Therapeutic Tab) 1 each PO DAILY ON LICENSE OF [facility] Last Admin: 10/25/20 08:39 Dose: 1 each Documented by: Ondansetron HCl (Ondansetron 4 Mg/2 Ml Sdv) 4 mg IVPUSH Q4H PRN PRN Reason: Nausea/Vomiting Last Admin: 10/25/20 20:32 Dose: 4 mg Documented by: Sodium Chloride (Sodium Chloride 0.9% 10 Ml Syringe) 10 ml FLUSH ASDIRECTED PRN PRN Reason: Keep Vein Open Last Admin: 10/24/20 15:35 Dose: 10 ml Documented by: Discontinued Medications Multivitamins/Minerals 10 ml/Thiamine HCl 100 mg/ Folic Acid 1 mg/ Lactated Ringer's 1,011.2 mls @ 999 mls/hr IV .BOLUS ONE Stop: 10/24/20 10:51 Last Admin: 10/24/20 10:25 Dose: 999 mls/hr Documented by: Pantoprazole Sodium 40 mg/ (Sodium Chloride) 100 mls @ 20 mls/hr IV .CONTINUOS [facility] Last Admin: 10/24/20 11:34 Dose: 20 mls/hr Documented by: Pantoprazole Sodium 40 mg/ (Sodium Chloride) 100 mls @ 20 mls/hr IV Q5H [facility] Magnesium Sulfate/Dextrose 1 (gm/ Premix) 100 mls @ 100 mls/hr IV ONETIME ONE Stop: 10/25/20 09:04 Last Admin: 10/25/20 11:26 Dose: 100 mls/hr Documented by: Ketorolac Tromethamine (Ketorolac 30 Mg/Ml Sdv) 30 mg IVPUSH ONETIME ONE Stop: 10/24/20 13:35 Last Admin: 10/24/20 14:11 Dose: 30 mg Documented by: Lorazepam (Lorazepam 2 Mg/Ml Sdv) 1 mg IVPUSH ONETIME ONE Stop: 10/24/20 10:43 Last Admin: 10/24/20 11:10 Dose: 1 mg Documented by: Metoclopramide HCl (Metoclopramide 10 Mg/2 Ml Sdv) 10 mg IVPUSH ONETIME ONE Stop: 10/24/20 13:35 Last Admin: 10/24/20 14:10 Dose: 10 mg Documented by: Metoclopramide HCl (Metoclopramide 10 Mg/2 Ml Sdv) 10 mg IVPUSH ONETIME ONE Stop: 10/25/20 00:16 Last Admin: 10/25/20 00:22 Dose: 10 mg Documented by: Ondansetron HCl (Ondansetron 4 Mg/2 Ml Sdv) 4 mg IV ONETIME ONE Stop: 10/24/20 09:52 Last Admin: 10/24/20 10:24 Dose: 4 mg Documented by: Ondansetron HCl (Ondansetron 4 Mg/2 Ml Sdv) 4 mg IV ONETIME ONE Stop: 10/24/20 10:42 Last Admin: 10/24/20 11:11 Dose: 4 mg Documented by: Pantoprazole Sodium (Pantoprazole 40 Mg Vial) 80 mg IVPUSH .BOLUS ONE Stop: 10/24/20 09:58 Last Admin: 10/24/20 10:25 Dose: 80 mg Documented by: Potassium Chloride (Potassium Chloride 10 Meq Tab.Er) 40 meq PO ONETIME ONE Stop: 10/25/20 08:05 Last Admin: 10/25/20 08:39 Dose: 40 meq Documented by: - Exam General: Alert, Oriented, Cooperative, No Acute Distress HEENT: Pupils Equal Lungs: Clear to Auscultation Cardiovascular: Regular Rate, No Murmurs GI/Abdominal Exam: Normal Bowel Sounds Extremities: Normal Inspection, No Pedal Edema Skin: Warm, Dry Neurological: Other (Very mild tremors noted in both hands) Psy/Mental Status: Normal Affect, Normal Mood - Patient Data Lab Results Last 24 hrs: Laboratory Results - last 24 hr 10/26/20 Range/Units 05:45 Sodium 140 (136-145) mmol/L Potassium 3.5 (3.5-5.1) mmol/L Chloride 98 (98-107) mmol/L Carbon Dioxide 30 (21-32) mmol/L Anion Gap 15.5 H (7-13) mEq/L BUN 7 (7-18) mg/dL Creatinine 0.97 (0.70-1.30) mg/dL Est Cr Clr Drug Dosing 130.64 mL/min Estimated GFR (MDRD) > 60 Glucose 85 (70-99) mg/dL Calcium 9.1 (8.5-10.1) mg/dL Result Diagrams: 10/24/20 10:04 10/26/20 05:45 Sepsis Event Note - Evaluation Sepsis Screening Result: No Definite Risk - Focused Exam Vital Signs: Vital Signs Temp Pulse Resp BP BP Pulse Ox 10/26/20 07:52 97.7 F 105 H 16 169/103 H 92 L 10/26/20 03:00 98.0 F 89 18 152/99 H 96 10/25/20 23:27 97.2 F 83 18 156/94 H 96 10/25/20 20:40 96.4 F L 90 18 152/90 H 95 - Problem List Review Problem List Initiated/Reviewed/Updated: Yes - My Orders Last 24 Hours: My Active Orders 10/25/20 17:20 Metoprolol Tartrate [Lopressor] 5 mg IVPUSH Q6H PRN 10/25/20 17:21 Melatonin 6 mg PO BEDTIME PRN diphenhydrAMINE [Benadryl] 50 mg PO BEDTIME PRN 10/26/20 Breakfast Regular Diet [DIET] - Plan Plan:: 30-year-old male admitted for acute alcohol detoxification; drinks 1 L of vodka per day. 1. Acute alcohol withdrawal. Continue CIWA protocol with as needed benzodiazepines. Hold off on scheduled additional therapies as CIWA scores are low. No hallucinations. No seizures. He does have seizure precautions in place in the event that one occurs. Monitor blood pressure and heart rate. Further alcohol cessation education. Case management consultation regarding further outpatient recovery services. Hopeful disposition to recovery center within the next 24 hours. 2. Hypokalemia and hypomagnesemia. Continue oral and IV replacement as needed. CODE STATUS: Full code. DVT prophylaxis both chemically mechanically.
[2020-10-26] MEDS: Multivitamins,Therapeutic Tab PO SCH (09:25)
[2020-10-26] MEDS: Enoxaparin 40 MG/0.4 ML Syringe SUBCUT SCH (09:25)
[2020-10-26] MEDS: Ondansetron 4 MG/2 ML SDV IVPUSH PRN ×2 (10:56→17:36)
[2020-10-26] MEDS ORDERED: Sodium Chloride 0.9% 10 ML Syringe FLUSH PRN (12:10)
[2020-10-26] MEDS: Melatonin 3 MG Tab PO PRN (20:20)
[2020-10-26] MEDS: diphenhydrAMINE 50 MG Cap PO PRN (21:30)
[2020-10-27] MEDS ORDERED: Thiamine 100 MG Tab PO SCH (09:00)
[2020-10-27] MEDS: Multivitamins,Therapeutic Tab PO SCH (09:01)
[2020-10-27] MEDS: Enoxaparin 40 MG/0.4 ML Syringe SUBCUT SCH (09:02)
--- NOTE | 2020-10-27 10:18 | PCM.DCSUM1 ---
Discharge Summary - Hospital Course Free Text/Narrative:: 30-year-old male admitted for acute alcohol detoxification; drinks 1 L of vodka per day. 1. Acute alcohol withdrawal. Admitted to the inpatient internal medicine service for acute alcohol withdrawal. The patient was placed on CIWA protocol using primarily benzodiazepines. Patient was also given thiamine and folate replacement on a daily basis. Patient status post banana bag in the emergency department. Throughout his course in the hospital the patient did not have any significant withdrawal symptoms leading to a prolonged treatment course. There were no tactile, auditory, visual hallucinations. There was no seizure activity. Blood pressures on occasion were somewhat high but not exceed systolic blood pressure of 180 mm/Hg. Patient was seen by case management regarding further outpatient treatment. The patient wished for inpatient recovery treatment upon discharge. This has been set up by case management and the social work team. He will be discharged to their care. Patient was given alcohol cessation education on a daily basis by the inpatient team. 2. Hypokalemia and hypomagnesemia. Continued oral and IV replacement as needed. CODE STATUS: Full code. DVT prophylaxis both chemically mechanically. HPI Initial Comments: Florian is a 30-year-old man who presented to the ER this morning with intractable nausea and vomiting as well as suspected alcohol withdrawal symptoms. He has b een a heavy drinker for the past 7 to 8 years per his report. He states that his last alcoholic drink was around 6:00 this morning after which he started vomiting and has not stopped since. He is not able to keep any kind of liquids down whatsoever. He reports the last episode of vomiting he had contained blood in it. He is interested in going into inpatient treatment, his father is here with him, and they state they are going to try and find him placement as early as possible with an inpatient alcohol treatment program. He is requesting detox today. He has had no recent abdominal pain, does have some throat pain now that he has been vomiting for the past several hours. He was given IV fluid rehydration with a LR/multivitamin bag in the ED, was also given some Protonix for that episode of hematemesis. Physical Exam at the time of intake:: General: Florian is a very uncomfortable appearing 30-year-old man in no acute distress. He is diaphoretic appearing, and is visibly shaking. Oropharynx is clear, mucous membranes are tacky to dry Neck: Supple, no lymphadenopathy Heart: Regular rate and rhythm, no murmurs Lungs: Clear to auscultation throughout Abdomen soft, he does have some epigastric tenderness, but normal bowel sounds throughout, no organomegaly detected Neurological: He is moving all his extremities normally, cranial nerves II through XII are intact grossly. He is able to have a complete conversation with me, does not show any signs of delirium Please refer to initial history and physical for further specific details regarding intake assessment and prior past medical history. - Discharge Data Discharge Date: 10/27/20 Discharge Disposition: Home, Self-Care 01 Condition: Good - Referral to Home Health Primary Care Physician: PCP None - Discharge Diagnosis/Problem(s) (1) Alcohol abuse SNOMED Code(s): 13174356 ICD Code: F10.10 - ALCOHOL ABUSE, UNCOMPLICATED Status: Acute Current Visit: No (2) Alcohol withdrawal SNOMED Code(s): 329055366 ICD Code: F10.239 - ALCOHOL DEPENDENCE WITH WITHDRAWAL, UNSPECIFIED Status: Acute Current Visit: No Qualifiers: Complication of substance-induced condition: with unspecified complication Qualified Code(s): F10.239 - Alcohol dependence with withdrawal, unspecified - Patient Instructions Diet: Weight Loss Diet Activity: As Tolerated Driving: May Drive Today - Discharge Plan *PRESCRIPTION DRUG MONITORING PROGRAM REVIEWED*: Not Applicable *COPY OF PRESCRIPTION DRUG MONITORING REPORT IN PATIENT TROY: Not Applicable Prescriptions/Med Rec: Folic Acid 1 mg PO DAILY #30 tab Thiamine [Vitamin B-1] 100 mg PO DAILY #30 tablet Home Medications: Home Meds Folic Acid 1 mg PO DAILY #30 tab 10/27/20 [Rx] Thiamine [Vitamin B-1] 100 mg PO DAILY #30 tablet 10/27/20 [Rx] Forms: ED Department Discharge Referrals: PCP,None [Primary Care Provider] - - Discharge Summary/Plan Comment DC Time >30 min.: Yes - General Info Date of Service: 10/27/20 Admission Dx/Problem (Free Text: Acute alcohol intoxication Mild acute alcohol withdrawal. Alcohol dependence Subjective Update: Patient does not endorse any specific complaints on the morning of discharge. Denies any hallucinations or anxious feelings. No tremor. Is feeling well and is willing to commit to further inpatient rehabilitation at local rehab center. No specific nursing concerns. No overnight events. - Review of Systems General: Reports: No Symptoms HEENT: Reports: No Symptoms Pulmonary: Reports: No Symptoms Cardiovascular: Reports: No Symptoms Gastrointestinal: Reports: No Symptoms Musculoskeletal: Reports: No Symptoms Neurological: Reports: No Symptoms Psychiatric: Denies: Anxiety, Agitation, Hallucinations - Patient Data Vitals - Most Recent: Last Vital Signs Temp 98.5 F 10/27/20 08:00 Pulse 96 10/27/20 08:00 Resp 20 10/27/20 08:00 BP 168/112 H 10/27/20 08:00 Pulse Ox 96 10/27/20 08:00 Weight - Most Recent: 316 lb 6.4 oz I&O - Last 24 hours: Intake & Output 10/26/20 10/27/20 10/27/20 22:59 06:59 14:59 Intake Total 600 1200 Balance 600 1200 Med Orders - Current: Current Medications Diphenhydramine HCl (Diphenhydramine 50 Mg Cap) 50 mg PO BEDTIME PRN PRN Reason: Insomnia Last Admin: 10/26/20 21:30 Dose: 50 mg Documented by: Enoxaparin Sodium (Enoxaparin 40 Mg/0.4 Ml Syringe) 40 mg SUBCUT DAILY [facility] Last Admin: 10/27/20 09:02 Dose: 40 mg Documented by: Lorazepam (Lorazepam 2 Mg/Ml Sdv) 0 mg IV TITRATE PRN; Protocol PRN Reason: alcohol withdrawal Last Admin: 10/25/20 16:15 Dose: 1 mg Documented by: Lorazepam (Lorazepam 1 Mg Tab) 0 mg PO ASDIRECTED PRN; Protocol PRN Reason: Agitation Last Admin: 10/26/20 17:36 Dose: 1 mg Documented by: Melatonin (Melatonin 3 Mg Tab) 6 mg PO BEDTIME PRN PRN Reason: Insomnia Last Admin: 10/26/20 20:20 Dose: 6 mg Documented by: Metoprolol Tartrate (Metoprolol Tartrate 5 Mg/5 Ml Sdv) 5 mg IVPUSH Q6H PRN PRN Reason: Hypertension Multivitamins (Multivitamins,Therapeutic Tab) 1 each PO DAILY [facility] Last Admin: 10/27/20 09:01 Dose: 1 each Documented by: Ondansetron HCl (Ondansetron 4 Mg/2 Ml Sdv) 4 mg IVPUSH Q4H PRN PRN Reason: Nausea/Vomiting Last Admin: 10/26/20 17:36 Dose: 4 mg Documented by: Sodium Chloride (Sodium Chloride 0.9% 10 Ml Syringe) 10 ml FLUSH ASDIRECTED PRN PRN Reason: Keep Vein Open Last Admin: 10/27/20 09:10 Dose: 10 ml Documented by: Thiamine HCl (Thiamine 100 Mg Tab) 100 mg PO DAILY [facility] Last Admin: 10/27/20 09:01 Dose: 100 mg Documented by: Discontinued Medications Multivitamins/Minerals 10 ml/Thiamine HCl 100 mg/ Folic Acid 1 mg/ Lactated Ringer's 1,011.2 mls @ 999 mls/hr IV .BOLUS ONE Stop: 10/24/20 10:51 Last Admin: 10/24/20 10:25 Dose: 999 mls/hr Documented by: Pantoprazole Sodium 40 mg/ (Sodium Chloride) 100 mls @ 20 mls/hr IV .CONTINUOS [facility] Last Admin: 10/24/20 11:34 Dose: 20 mls/hr Documented by: Thiamine HCl 100 mg/ Sodium (Chloride) 51 mls @ 100 mls/hr IV DAILY [facility] Last Admin: 10/25/20 08:38 Dose: 100 mls/hr Documented by: Lactated Ringer's (Ringers, Lactated) 1,000 mls @ 125 mls/hr IV ASDIRECTED [facility] Last Admin: 10/26/20 02:56 Dose: 125 mls/hr Documented by: Pantoprazole Sodium 40 mg/ (Sodium Chloride) 100 mls @ 20 mls/hr IV Q5H [facility] Magnesium Sulfate/Dextrose 1 (gm/ Premix) 100 mls @ 100 mls/hr IV ONETIME ONE Stop: 10/25/20 09:04 Last Admin: 10/25/20 11:26 Dose: 100 mls/hr Documented by: Ketorolac Tromethamine (Ketorolac 30 Mg/Ml Sdv) 30 mg IVPUSH ONETIME ONE Stop: 10/24/20 13:35 Last Admin: 10/24/20 14:11 Dose: 30 mg Documented by: Lorazepam (Lorazepam 2 Mg/Ml Sdv) 1 mg IVPUSH ONETIME ONE Stop: 10/24/20 10:43 Last Admin: 10/24/20 11:10 Dose: 1 mg Documented by: Metoclopramide HCl (Metoclopramide 10 Mg/2 Ml Sdv) 10 mg IVPUSH ONETIME ONE Stop: 10/24/20 13:35 Last Admin: 10/24/20 14:10 Dose: 10 mg Documented by: Metoclopramide HCl (Metoclopramide 10 Mg/2 Ml Sdv) 10 mg IVPUSH ONETIME ONE Stop: 10/25/20 00:16 Last Admin: 10/25/20 00:22 Dose: 10 mg Documented by: Ondansetron HCl (Ondansetron 4 Mg/2 Ml Sdv) 4 mg IV ONETIME ONE Stop: 10/24/20 09:52 Last Admin: 10/24/20 10:24 Dose: 4 mg Documented by: Ondansetron HCl (Ondansetron 4 Mg/2 Ml Sdv) 4 mg IV ONETIME ONE Stop: 10/24/20 10:42 Last Admin: 10/24/20 11:11 Dose: 4 mg Documented by: Pantoprazole Sodium (Pantoprazole 40 Mg Vial) 80 mg IVPUSH .BOLUS ONE Stop: 10/24/20 09:58 Last Admin: 10/24/20 10:25 Dose: 80 mg Documented by: Potassium Chloride (Potassium Chloride 10 Meq Tab.Er) 40 meq PO ONETIME ONE Stop: 10/25/20 08:05 Last Admin: 10/25/20 08:39 Dose: 40 meq Documented by: Sodium Chloride (Sodium Chloride 0.9% 10 Ml Syringe) 10 ml FLUSH ASDIRECTED PRN PRN Reason: Keep Vein Open Last Admin: 10/24/20 15:35 Dose: 10 ml Documented by: - Exam General: Reports: Alert Neck: Reports: Supple Lungs: Reports: Clear to Auscultation, Normal Respiratory Effort Cardiovascular: Reports: Regular Rate, Regular Rhythm GI/Abdominal Exam: Normal Bowel Sounds, Soft, Non-Tender, No Distention Extremities: Normal Inspection, No Pedal Edema Skin: Reports: Warm Neurological: Reports: No New Focal Deficit Psy/Mental Status: Reports: Normal Affect, Normal Mood
== END 2020-10-27 13:10 | disposition home or self-care (01) | DRG 897 ==
LOC: DL.ED 09:31 → DL.MS 11:15
PROVIDERS: ADMIT Family Medicine; ATTEND Hospitalist
DX: F10.239 Alcohol dependence with withdrawal, unspecified (principal); F10.229 Alcohol dependence with intoxication, unspecified; E87.6 Hypokalemia; E83.42 Hypomagnesemia; E86.0 Dehydration; Z20.822 Contact with and (suspected) exposure to COVID-19
CPT/HCPCS: 36415; 80048; 80053; 80143; 80179; 80305-QW; 80307; 81001; 82150; 83690; 83735; 84100; 85025; 85610; 85730; 96365; 96375; 99284; 99285-25; A9270-GY; C9113; J1650; J1885; J2060; J2405; J2765; J3411; J3475; J3490; J7120; Q0163; U0002

== ENCOUNTER 2020-11-16 06:26 | Emergency (ER) | payer MEDICAID ==
[2020-11-16] MEDS ORDERED: Sodium Chloride 0.9% 10 ML Syringe FLUSH PRN (06:34)
[2020-11-16] MEDS ORDERED: Sodium Chloride 0.9% 1,000 ML IV ONE (07:07)
[2020-11-16] MEDS ORDERED: Ondansetron 4 MG/2 ML SDV IV ONE (07:07)
[2020-11-16] MEDS ORDERED: Pantoprazole 40 MG Vial IVPUSH ONE (07:08)
[2020-11-16 07:11] LABS: ANION GAP 17.5 mEq/L (7-13); CHLORIDE,CL 100 mmol/L (98-107); SODIUM,NA 139 mmol/L (136-145)
[2020-11-16] MEDS ORDERED: LORazepam 2 MG/ML SDV IVPUSH ONE (07:49)
--- NOTE | 2020-11-16 07:52 | EDM.PDOC ---
ED HPI GENERAL MEDICAL PROBLEM - General Chief Complaint: Abdominal Pain Stated Complaint: STOMACH PAIN, VOMMITING BLOOD Time Seen by Provider: 11/16/20 07:15 Source of Information: Reports: Patient, RN, RN Notes Reviewed History Limitations: Reports: No Limitations - History of Present Illness INITIAL COMMENTS - FREE TEXT/NARRATIVE: Patient is a 30-year-old male who presents to ER with complaint of nausea, vomiting for the past 2 days. He states he has stopped drinking for about a month. States he started vomiting 2 days ago. He states he thought maybe he was having some withdrawal symptoms so he had "a few beers" last night. More vomiting this morning, states he saw blood streaks in the vomit. Patient admits to having a lot of anxiety. States he takes no medications for his anxiety. States he was discharged from the hospital on omeprazole. He states he has been recently taking [id number] omeprazole and he does not feel this is working as well. Patient admits to diarrhea yesterday. Onset: Gradual Onset Date: 11/14/20 Right Middle Abdominal Pain Score (Numeric/FACES): 4 - Related Data Allergies Allergy/AdvReac Type Severity Reaction Status Date / Time No Known Allergies Allergy Verified 11/16/20 06:52 Home Meds: Home Meds Folic Acid 1 mg PO DAILY #30 tab 10/27/20 [Rx] Thiamine [Vitamin B-1] 100 mg PO DAILY #30 tablet 10/27/20 [Rx] Magnesium Amino Acid Chelate [Magnesium] 100 mg PO DAILY 11/16/20 [History] Omeprazole 20 mg PO DAILY 11/16/20 [History] Past Medical History - Past Health History Medical/Surgical History: Denies Medical/Surgical History HEENT History: Reports: Impaired Vision Other HEENT History: wear glasses Cardiovascular History: Reports: None Other Cardiovascular History: born with heart failure Respiratory History: Reports: None Gastrointestinal History: Reports: None Genitourinary History: Reports: None Musculoskeletal History: Reports: Back Pain, Chronic Neurological History: Reports: None Psychiatric History: Reports: Addiction, Anxiety Endocrine/Metabolic History: Reports: None Hematologic History: Reports: None Immunologic History: Reports: None Oncologic (Cancer) History: Reports: None Dermatologic History: Reports: None - Infectious Disease History Infectious Disease History: Reports: Chicken Pox - Past Surgical History Head Surgeries/Procedures: Reports: None Social & Family History - Family History Family Medical History: No Pertinent Family History - Tobacco Use Tobacco Use Status *Q: Never Tobacco User Second Hand Smoke Exposure: No - Caffeine Use Caffeine Use: Reports: None - Alcohol Use Date of Last Drink: 11/15/20 Time of Last Drink: 20:00 - Recreational Drug Use Recreational Drug Use: No - Living Situation & Occupation Living situation: Reports: with Family ED ROS GENERAL - Review of Systems Review Of Systems: Comprehensive ROS is negative, except as noted in HPI. ED EXAM, GI/ABD - Physical Exam Exam: See Below Exam Limited By: No Limitations General Appearance: Alert, WD/WN, No Apparent Distress, Anxious Eyes: Bilateral: Normal Appearance, EOMI Ears: Normal External Exam, Hearing Grossly Normal Nose: Normal Inspection Throat/Mouth: Normal Inspection, Normal Voice, No Airway Compromise Head: Atraumatic, Normocephalic Neck: Normal Inspection, Supple, Non-Tender, Full Range of Motion Respiratory/Chest: No Respiratory Distress, Lungs Clear, Normal Breath Sounds, No Accessory Muscle Use, Chest Non-Tender Cardiovascular: Normal Peripheral Pulses, Regular Rate, Rhythm, No Edema, No Gallop, No JVD, No Murmur, No Rub GI/Abdominal Exam: Normal Bowel Sounds, Soft, Tender (Male) Exam: Deferred Rectal (Males) Exam: Deferred Back Exam: Normal Inspection, Full Range of Motion, NT Extremities: Normal Inspection, Normal Range of Motion, Non-Tender, Normal Capillary Refill, No Pedal Edema Neurological: Alert, Oriented, CN II-XII Intact, Normal Cognition, Normal Gait, Normal Reflexes, No Motor/Sensory Deficits Psychiatric: Normal Affect, Normal Mood, Anxious Skin Exam: Warm, Dry, Intact, Normal Color, No Rash Lymphatic: No Adenopathy Course - Vital Signs Last Recorded V/S: Last Vital Signs Temp 97.8 F 11/16/20 06:37 Pulse 115 H 11/16/20 06:37 Resp 20 11/16/20 06:37 BP 156/111 H 11/16/20 06:37 Pulse Ox 98 11/16/20 06:37 - Orders/Labs/Meds Orders: Active Orders 24 hr Category Date Time Status Peripheral IV Care [RC] . DIRECTED Care 11/16/20 06:35 Active DRUG SCREEN URINE BIORAD [URCHEM] Stat Lab 11/16/20 06:34 Ordered UA RFX DONATO AND CULT IF INDIC [URIN] Stat Lab 11/16/20 06:34 Ordered Sodium Chloride 0.9% [Saline Flush] Med 11/16/20 06:34 Active 10 ml FLUSH ASDIRECTED PRN Peripheral IV Insertion Adult [OM.PC] Stat Oth 11/16/20 06:34 Ordered Medication Orders Sodium Chloride (Sodium Chloride 0.9% 10 Ml Syringe) 10 ml FLUSH ASDIRECTED PRN PRN Reason: Keep Vein Open Last Admin: 11/16/20 07:15 Dose: 10 ml Documented by: DORA Labs: Laboratory Tests 11/16/20 11/16/20 11/16/20 Range/Units 06:45 06:45 06:45 WBC 8.3 (5.0-10.0) 10^3/uL RBC 5.19 (4.6-6.2) 10^6/uL Hgb 16.1 (14.0-18.0) g/dL Hct 48.4 (40.0-54.0) % MCV 93.3 (80-100) fL MCH 31.0 (27.0-34.0) pg MCHC 33.3 (33.0-35.0) g/dL Plt Count 319 D (150-450) 10^3/uL Neut % (Auto) 65.2 (42.2-75.2) % Lymph % (Auto) 25.8 (20.5-50.1) % [place] % (Auto) 7.4 (2-8) % Eos % (Auto) 1.0 (1.0-3.0) % Baso % (Auto) 0.6 (0.0-1.0) % PT 10.6 (9.0-12.0) SEC INR 1.1 (0.9-1.2) APTT 25.0 (22.0-34.0) SEC Sodium 139 (136-145) mmol/L Potassium 3.5 (3.5-5.1) mmol/L Chloride 100 (98-107) mmol/L Carbon Dioxide 25 (21-32) mmol/L Anion Gap 17.5 H (7-13) mEq/L BUN 4 L (7-18) mg/dL Creatinine 0.96 (0.70-1.30) mg/dL Est Cr Clr Drug Dosing 132.01 mL/min Estimated GFR (MDRD) > 60 BUN/Creatinine Ratio 4.2 (No establ ref range) Glucose 129 H (70-99) mg/dL Lactic Acid (0.4-2.0) mmol/L Calcium 8.7 (8.5-10.1) mg/dL Magnesium 2.0 (1.8-2.4) mg/dL Total Bilirubin 0.6 (0.2-1.0) mg/dL AST 118 H (15-37) U/L ALT 137 H (16-63) U/L Alkaline Phosphatase 161 H (46-116) U/L C-Reactive Protein < 0.2 (0.0-0.9) mg/dL Total Protein 8.4 H (6.4-8.2) g/dL Albumin 3.3 L (3.4-5.0) g/dL Globulin 5.1 Albumin/Globulin Ratio 0.65 Lipase 131 (73-393) U/L Ethyl Alcohol 133 (0) mg/dL // Range/Units 06:45 WBC (5.0-10.0) 10^3/uL RBC (4.6-6.2) 10^6/uL Hgb (14.0-18.0) g/dL Hct (40.0-54.0) % MCV (80-100) fL MCH (27.0-34.0) pg MCHC (33.0-35.0) g/dL Plt Count (150-450) 10^3/uL Neut % (Auto) (42.2-75.2) % Lymph % (Auto) (20.5-50.1) % [place] % (Auto) (2-8) % Eos % (Auto) (1.0-3.0) % Baso % (Auto) (0.0-1.0) % PT (9.0-12.0) SEC INR (0.9-1.2) APTT (22.0-34.0) SEC Sodium (136-145) mmol/L Potassium (3.5-5.1) mmol/L Chloride (98-107) mmol/L Carbon Dioxide (21-32) mmol/L Anion Gap (7-13) mEq/L BUN (7-18) mg/dL Creatinine (0.70-1.30) mg/dL Est Cr Clr Drug Dosing mL/min Estimated GFR (MDRD) BUN/Creatinine Ratio (No establ ref range) Glucose (70-99) mg/dL Lactic Acid 1.4 (0.4-2.0) mmol/L Calcium (8.5-10.1) mg/dL Magnesium (1.8-2.4) mg/dL Total Bilirubin (0.2-1.0) mg/dL AST (15-37) U/L ALT (16-63) U/L Alkaline Phosphatase (46-116) U/L C-Reactive Protein (0.0-0.9) mg/dL Total Protein (6.4-8.2) g/dL Albumin (3.4-5.0) g/dL Globulin Albumin/Globulin Ratio Lipase (73-393) U/L Ethyl Alcohol (0) mg/dL Meds: Medications Generic Name Dose Route Start Last Admin Trade Name Freq PRN Reason Stop Dose Admin Sodium Chloride 10 ml 11/16/20 06:34 11/16/20 07:15 Sodium Chloride 0.9% 10 Ml Syringe FLUSH 10 ml ASDIRECTED PRN Administration Keep Vein Open Discontinued Medications Generic Name Dose Route Start Last Admin Trade Name Freq PRN Reason Stop Dose Admin Sodium Chloride 1,000 mls @ 999 mls/hr 11/16/20 07:07 11/16/20 07:10 Normal Saline IV 11/16/20 08:07 999 mls/hr .BOLUS ONE Administration Lorazepam 1 mg 11/16/20 07:49 11/16/20 07:58 Lorazepam 2 Mg/Ml Sdv IVPUSH 11/16/20 07:50 1 mg ONETIME ONE Administration Ondansetron HCl 4 mg 11/16/20 07:07 11/16/20 07:11 Ondansetron 4 Mg/2 Ml Sdv IV 11/16/20 07:08 4 mg ONETIME ONE Administration Pantoprazole Sodium 80 mg 11/16/20 07:08 11/16/20 07:16 Pantoprazole 40 Mg Vial IVPUSH 11/16/20 07:09 80 mg .BOLUS ONE Administration Departure - Departure Time of Disposition: 08:15 Disposition: Home, Self-Care 01 Condition: Fair Clinical Impression: Gastritis Qualifiers: Gastritis type: alcoholic Chronicity: acute Gastritis bleeding: presence of bleeding unspecified Qualified Code(s): K29.20 - Alcoholic gastritis without b leeding - Discharge Information *PRESCRIPTION DRUG MONITORING PROGRAM REVIEWED*: No *COPY OF PRESCRIPTION DRUG MONITORING REPORT IN PATIENT TROY: No Instructions: Gastritis, Adult, [id number], Nausea and Vomiting, Adult, [id number] Forms: ED Department Discharge Additional Instructions: Refrain from drinking alcohol Follow up with your primary care facility this week Small frequent sips of fluids, water, Gatorade or Powerade, Pedialyte Return to the ER with any worsening of problems Sepsis Event Note (ED) - Evaluation Sepsis Screening Result: No Definite Risk - Focused Exam Vital Signs: Vital Signs Temp Pulse Resp BP Pulse Ox 11/16/20 06:37 97.8 F 115 H 20 156/111 H 98
== END 2020-11-16 08:27 | disposition home or self-care (01) ==
LOC: DL.ED 06:26
DX: K29.20 Alcoholic gastritis without bleeding (principal); Z79.899 Other long term (current) drug therapy
CPT/HCPCS: 36415; 80053; 80307; 83605; 83690; 83735; 85025; 85610; 85730; 86140; 96374; 96375; 99283; 99284-25; C9113; J2060; J2405; J7030

== ENCOUNTER 2021-02-28 10:37 | Emergency (ER) | payer MEDICAID ==
[2021-02-28] MEDS ORDERED: LORazepam 1 MG Tab PO ONE (11:11)
[2021-02-28] MEDS ORDERED: Metoprolol Tartrate 25 MG Tab PO ONE (11:11)
--- NOTE | 2021-02-28 11:27 | EDM.PDOC ---
Scribed by Serenity Dia 02/28/21 1118 for Lorenzo Hess MD ED HPI GENERAL MEDICAL PROBLEM - General Chief Complaint: Respiratory Problem Stated Complaint: IN BY AMBULANCE Time Seen by Provider: 02/28/21 11:00 Source of Information: Reports: Patient, EMS, EMS Notes Reviewed, RN, RN Notes Reviewed History Limitations: Reports: No Limitations - History of Present Illness INITIAL COMMENTS - FREE TEXT/NARRATIVE: Patient arrives to ED by [facility] stating he got SOB this AM at 0900. He was able to go to sleep at that time, more short of breath when woke up. States checked sats at home and they were at 70% at 3 ml/hr NC. Patient turned up O2 to 5ML/hr sats came up to the 80-85, and heart rate in the 130-140, states the heart rate is in the 120s normally. Patient states up all night because right ribs hurting and states sleeps when in to outpatient A/B because he feels safer. He likes the bed that reclines. Patient states feels this could be anxiety, states ribs hurting because liver is swollen from drinking. States just spent 1 month in the [facility] and became COVID positive there, was off quarantine 02/28/2021, rates his rib pain 10/10, states takes Ibuprofen 400 mgs Q 4 hours, last taken at 0900, Onset: Today Duration: Getting Worse Location: Reports: Chest Severity: Severe Improves with: Reports: None Worsens with: Reports: None Associated Symptoms: Reports: No Other Symptoms Right Chest Pain Score (Numeric/FACES): 10 - Related Data Allergies Allergy/AdvReac Type Severity Reaction Status Date / Time No Known Allergies Allergy Verified 02/28/21 10:55 Home Meds: Home Meds Magnesium Oxide [Magnesium] 800 mg PO BID 02/25/21 [History] Metoprolol Succinate [Toprol XL] 25 mg PO BID 02/25/21 [History] Pantoprazole [ProTONIX] 40 mg PO DAILY 02/25/21 [History] Potassium Chloride 40 meq PO DAILY 02/25/21 [History] Rifaximin [Xifaxan] 550 mg PO BID 02/25/21 [History] Sodium Chloride 2 gm PO BID 02/25/21 [History] Spironolactone [Aldactone] 25 mg PO BID 02/25/21 [History] Thiamine [Vitamin B-1] 100 mg PO BID 02/25/21 [History] Past Medical History - Past Health History Medical/Surgical History: Denies Medical/Surgical History HEENT History: Reports: Impaired Vision Other HEENT History: wear glasses Cardiovascular History: Reports: None Other Cardiovascular History: born with heart failure Respiratory History: Reports: None Gastrointestinal History: Reports: GERD Genitourinary History: Reports: None Musculoskeletal History: Reports: Back Pain, Chronic Neurological History: Reports: None Psychiatric History: Reports: Addiction, Anxiety Endocrine/Metabolic History: Reports: Obesity/BMI 30+ Hematologic History: Reports: None Immunologic History: Reports: None Oncologic (Cancer) History: Reports: None Dermatologic History: Reports: None - Infectious Disease History Infectious Disease History: Reports: Chicken Pox, Novel Coronavirus - Past Surgical History Head Surgeries/Procedures: Reports: None Social & Family History - Family History Family Medical History: No Pertinent Family History - Tobacco Use Tobacco Use Status *Q: Never Tobacco User Second Hand Smoke Exposure: No - Caffeine Use Caffeine Use: Reports: Coffee, Soda, Tea - Recreational Drug Use Recreational Drug Use: No - Living Situation & Occupation Living situation: Reports: with Family ED ROS GENERAL - Review of Systems Review Of Systems: Comprehensive ROS is negative, except as noted in HPI. ED EXAM, GENERAL - Physical Exam Exam: See Below Exam Limited By: No Limitations General Appearance: Alert, No Apparent Distress, Anxious, Obese, Other (Chronically ill appearing) Eye Exam: Bilateral Eye: Normal Inspection Ears: Hearing Grossly Normal Nose: Normal Inspection Throat/Mouth: Normal Lips, Normal Voice, No Airway Compromise Head: Atraumatic Neck: Normal Inspection Course - Vital Signs Last Recorded V/S: Last Vital Signs Temp 96.2 F L 02/28/21 10:36 Pulse 126 H 02/28/21 11:21 Resp 20 02/28/21 10:36 BP 124/79 02/28/21 11:21 Pulse Ox 94 L 02/28/21 10:36 - Orders/Labs/Meds Meds: Medications Discontinued Medications Generic Name Dose Route Start Last Admin Trade Name Freq PRN Reason Stop Dose Admin Lorazepam 1 mg 02/28/21 11:11 02/28/21 11:17 Lorazepam 1 Mg Tab PO 02/28/21 11:12 1 mg ONETIME ONE Administration Metoprolol Tartrate 25 mg 02/28/21 11:11 02/28/21 11:21 Metoprolol Tartrate 25 Mg Tab PO 02/28/21 11:12 25 mg ONETIME ONE Administration - Re-Assessments/Exams Free Text/Narrative Re-Assessment/Exam: 02/28/21 11:19 Pt states that he panic attack which made him feel short of breath. Pt now acknowledges that his Departure - Departure Time of Disposition: 11:23 Disposition: Home, Self-Care 01 Condition: Fair Clinical Impression: Generalized anxiety disorder with panic attacks, Hypoxia - Discharge Information *PRESCRIPTION DRUG MONITORING PROGRAM REVIEWED*: No *COPY OF PRESCRIPTION DRUG MONITORING REPORT IN PATIENT TROY: No Instructions: Managing Anxiety, Adult, Panic Attack, [id number] Forms: ED Department Discharge Additional Instructions: Rx: Clonazepam 1mg Take your regular home medications exactly as prescribed. Use your oxygen as prescribed. Continue IV antibiotic therapy until treatment is completely. Follow up in clinic next week for recheck. Sepsis Event Note (ED) - Focused Exam Vital Signs: Vital Signs Temp Pulse Pulse Resp BP BP Pulse Ox 02/28/21 11:21 126 H 124/79 02/28/21 10:36 96.2 F L 130 H 20 123/78 94 L I have read and agree with the documentation that has been completed regarding this visit. By signing this record, I attest that the documentation was completed in my physical presence and is an accurate record of the encounter.
== END 2021-02-28 11:34 | disposition home or self-care (01) ==
LOC: DL.ED 10:37
DX: R09.02 Hypoxemia (principal); F41.0 Panic disorder [episodic paroxysmal anxiety]; K21.9 Gastro-esophageal reflux disease without esophagitis; E66.9 Obesity, unspecified; Z68.37 Body mass index [BMI] 37.0-37.9, adult; Z79.899 Other long term (current) drug therapy
CPT/HCPCS: 99284; A9270-GY

== ENCOUNTER 2021-03-01 02:11 | Emergency (ER) | payer MEDICAID ==
--- NOTE | 2021-03-01 02:30 | EDM.PDOC ---
ED HPI GENERAL MEDICAL PROBLEM - General Chief Complaint: Respiratory Problem Stated Complaint: AMBULANCE Time Seen by Provider: 03/01/21 03:15 Source of Information: Reports: Patient, RN History Limitations: Reports: No Limitations - History of Present Illness INITIAL COMMENTS - FREE TEXT/NARRATIVE: ED via [facility] with c/o SOB. Patient seen doloreser today in ED for same. Recent COVID pneumonia. Receiving outpatient Vanco. Missed dose tonight due to not feeling well. Home O2 at 2L, increased to 3L today. EMS noted sats in 70's on arrival. Patient initially on NRB 15 L sating upper 80's able to wean to oxymask at 10L. C/O chest pain only with cough. No nausea or vomiting. Decreased appetite. No known fever. - Related Data Allergies Allergy/AdvReac Type Severity Reaction Status Date / Time No Known Allergies Allergy Verified 03/01/21 03:03 Home Meds: Home Meds Magnesium Oxide [Magnesium] 800 mg PO BID 02/25/21 [History] Metoprolol Succinate [Toprol XL] 25 mg PO BID 02/25/21 [History] Pantoprazole [ProTONIX] 40 mg PO DAILY 02/25/21 [History] Potassium Chloride 40 meq PO DAILY 02/25/21 [History] Rifaximin [Xifaxan] 550 mg PO BID 02/25/21 [History] Sodium Chloride 2 gm PO BID 02/25/21 [History] Spironolactone [Aldactone] 25 mg PO BID 02/25/21 [History] Thiamine [Vitamin B-1] 100 mg PO BID 02/25/21 [History] ClonazePAM [KlonoPIN] 1 mg PO Q12HR PRN 02/28/21 [History] Albuterol Sulfate [Albuterol Sulfate HFA] 2 puff INH Q4H 03/01/21 [History] Furosemide 40 mg PO DAILY 03/01/21 [History] Iron Polysaccharide Complex [Ferric X-150] 150 mg PO BID 03/01/21 [History] Vancomycin/0.9 % Sod Chloride [Vanco 1.25 gm/250 ml-0.9% NaCl] 1.25 gm IV Q12H 03/01/21 [History] dexAMETHasone [Dexamethasone] 2 mg PO DAILY 03/01/21 [History] traZODone 50 mg PO DAILY PRN 03/01/21 [History] Past Medical History - Past Health History Medical/Surgical History: Denies Medical/Surgical History HEENT History: Reports: Impaired Vision Other HEENT History: wear glasses Cardiovascular History: Reports: None Other Cardiovascular History: born with heart failure Respiratory History: Reports: None Gastrointestinal History: Reports: None Genitourinary History: Reports: None Musculoskeletal History: Reports: Back Pain, Chronic Neurological History: Reports: None Psychiatric History: Reports: Addiction, Anxiety Endocrine/Metabolic History: Reports: None Hematologic History: Reports: None Immunologic History: Reports: None Oncologic (Cancer) History: Reports: None Dermatologic History: Reports: None - Infectious Disease History Infectious Disease History: Reports: Chicken Pox, Novel Coronavirus - Past Surgical History Head Surgeries/Procedures: Reports: None Social & Family History - Family History Family Medical History: No Pertinent Family History - Caffeine Use Caffeine Use: Reports: Soda - Living Situation & Occupation Living situation: Reports: with Family ED ROS GENERAL - Review of Systems Review Of Systems: Comprehensive ROS is negative, except as noted in HPI. ED EXAM, GENERAL - Physical Exam Exam: See Below Exam Limited By: No Limitations General Appearance: Alert, Anxious, Mild Distress Eye Exam: Bilateral Eye: Conjunctival Injection (mild), EOMI Ears: Normal External Exam, Hearing Grossly Normal Nose: Normal Inspection Throat/Mouth: Normal Inspection, Normal Lips, Normal Voice Head: Atraumatic, Normocephalic Neck: Normal Inspection Respiratory/Chest: Decreased Breath Sounds, Crackles (bilateral base). No: Normal Breath Sounds, Pleural Rub Cardiovascular: Normal Peripheral Pulses, Regular Rate, Rhythm, Tachycardia GI/Abdominal: Normal Bowel Sounds, Soft, Non-Tender (Male) Exam: No Hernia, Normal Inspection Back Exam: Normal Inspection Extremities: Normal Inspection Neurological: Alert, Oriented Psychiatric: Normal Affect, Normal Mood Skin Exam: Warm, Dry, Intact Course - Vital Signs Last Recorded V/S: Last Vital Signs Temp 97.6 F 03/01/21 02:55 Pulse 132 H 03/01/21 02:55 Resp 40 H 03/01/21 02:55 BP 125/75 03/01/21 03:46 Pulse Ox 93 L 03/01/21 02:55 - Orders/Labs/Meds Labs: Laboratory Tests 03/01/21 03/01/21 03/01/21 Range/Units 02:35 02:35 02:35 WBC 13.9 H (5.0-10.0) 10^3/uL RBC 2.71 L (4.6-6.2) 10^6/uL Hgb 8.6 L D (14.0-18.0) g/dL Hct 26.4 L (40.0-54.0) % MCV 97.4 D (80-100) fL MCH 31.7 (27.0-34.0) pg MCHC 32.6 L (33.0-35.0) g/dL Plt Count 576 H D (150-450) 10^3/uL Neut % (Auto) 84.2 H (42.2-75.2) % Lymph % (Auto) 7.8 L (20.5-50.1) % [place] % (Auto) 7.7 (2-8) % Eos % (Auto) 0.1 L (1.0-3.0) % Baso % (Auto) 0.2 (0.0-1.0) % Add Manual Diff Yes Neutrophils % (Manual) 50 (42-75) % Band Neutrophils % 30 % Lymphocytes % (Manual) 16 L (20-50) % Atypical Lymphs % 0 % Monocytes % (Manual) 3 (2-8) % Eosinophils % (Manual) 1 (1-3) % Platelet Estimate Increased VBG pH (7.31-7.41) VBG pCO2 (41-51) mmHg VBG pO2 (35-42) mmHg VBG HCO3 (19-25) mmol/l VBG O2 Saturation (60-80) % VBG Base Excess ((-2)-(+3)) mmol/l O2 Delivery Device Sodium 129 L (136-145) mmol/L Potassium 4.5 (3.5-5.1) mmol/L Chloride 96 L (98-107) mmol/L Carbon Dioxide 21 (21-32) mmol/L Anion Gap 16.5 H (7-13) mEq/L BUN 17 (7-18) mg/dL Creatinine 1.15 (0.70-1.30) mg/dL Est Cr Clr Drug Dosing TNP Estimated GFR (MDRD) > 60 BUN/Creatinine Ratio 14.8 (No establ ref range) Glucose 98 (70-99) mg/dL Lactic Acid 0.6 (0.4-2.0) mmol/L Calcium 8.6 (8.5-10.1) mg/dL Total Bilirubin 1.9 H (0.2-1.0) mg/dL AST 127 H (15-37) U/L ALT 92 H (16-63) U/L Alkaline Phosphatase 161 H (46-116) U/L B-Natriuretic Peptide (0-100) pg/ml Total Protein 8.0 (6.4-8.2) g/dL Albumin 2.3 L (3.4-5.0) g/dL Globulin 5.7 Albumin/Globulin Ratio 0.40 Ethyl Alcohol (0) mg/dL 03/01/21 03/01/21 03/01/21 Range/Units 02:35 03:17 22:35 WBC (5.0-10.0) 10^3/uL RBC (4.6-6.2) 10^6/uL Hgb (14.0-18.0) g/dL Hct (40.0-54.0) % MCV (80-100) fL MCH (27.0-34.0) pg MCHC (33.0-35.0) g/dL Plt Count (150-450) 10^3/uL Neut % (Auto) (42.2-75.2) % Lymph % (Auto) (20.5-50.1) % [place] % (Auto) (2-8) % Eos % (Auto) (1.0-3.0) % Baso % (Auto) (0.0-1.0) % Add Manual Diff Neutrophils % (Manual) (42-75) % Band Neutrophils % % Lymphocytes % (Manual) (20-50) % Atypical Lymphs % % Monocytes % (Manual) (2-8) % Eosinophils % (Manual) (1-3) % Platelet Estimate VBG pH 7.38 (7.31-7.41) VBG pCO2 36 L (41-51) mmHg VBG pO2 24 L (35-42) mmHg VBG HCO3 21 (19-25) mmol/l VBG O2 Saturation 30 L (60-80) % VBG Base Excess -3.2 L ((-2)-(+3)) mmol/l O2 Delivery Device Om Sodium (136-145) mmol/L Potassium (3.5-5.1) mmol/L Chloride (98-107) mmol/L Carbon Dioxide (21-32) mmol/L Anion Gap (7-13) mEq/L BUN (7-18) mg/dL Creatinine (0.70-1.30) mg/dL Est Cr Clr Drug Dosing Estimated GFR (MDRD) BUN/Creatinine Ratio (No establ ref range) Glucose (70-99) mg/dL Lactic Acid (0.4-2.0) mmol/L Calcium (8.5-10.1) mg/dL Total Bilirubin (0.2-1.0) mg/dL AST (15-37) U/L ALT (16-63) U/L Alkaline Phosphatase (46-116) U/L B-Natriuretic Peptide 119 H (0-100) pg/ml Total Protein (6.4-8.2) g/dL Albumin (3.4-5.0) g/dL Globulin Albumin/Globulin Ratio Ethyl Alcohol < 3 (0) mg/dL Meds: Medications Discontinued Medications Generic Name Dose Route Start Last Admin Trade Name Freq PRN Reason Stop Dose Admin Sodium Chloride 1,000 mls @ 200 mls/hr 03/01/21 02:58 Normal Saline IV 03/01/21 07:57 .BOLUS ONE Vancomycin HCl 1.25 gm/ Sodium 250 mls @ 167 mls/hr 03/01/21 03:01 03/01/21 03:27 Chloride IV 03/01/21 04:30 167 mls/hr ONETIME ONE Administration Lorazepam 1 mg 03/01/21 02:57 03/01/21 03:27 Lorazepam 2 Mg/Ml Sdv IVPUSH 03/01/21 02:58 1 mg ONETIME ONE Administration - Re-Assessments/Exams Free Text/Narrative Re-Assessment/Exam: 03/01/21 04:24 Resting sats, mlow to mid 90, decrease with minimal exertion. TC [place] José , No bed available. TC to [facility], One Call Triage. Able to fid bed available in [place]. TC Dr Rodriguez, Await response from EMS. [facility] [place] until sunrise Departure - Departure Time of Disposition: 05:15 Disposition: DC/Tfer to Acute Hospital 02 Condition: Fair, Undetermined Clinical Impression: COVID-19, Hypoxia - Discharge Information *PRESCRIPTION DRUG MONITORING PROGRAM REVIEWED*: No *COPY OF PRESCRIPTION DRUG MONITORING REPORT IN PATIENT TROY: No Forms: ED Department Discharge
[2021-03-01] MEDS ORDERED: LORazepam 2 MG/ML SDV IVPUSH ONE (02:57)
[2021-03-01] MEDS ORDERED: Sodium Chloride 0.9% 1,000 ML IV ONE (02:58)
[2021-03-01 03:06] LABS: ANION GAP 16.5 mEq/L (7-13); CHLORIDE,CL 96 mmol/L (98-107); SODIUM,NA 129 mmol/L (136-145)
[2021-03-01 03:26] LABS: O2 DELIVERY DEVICE OM
[2021-03-01 03:27] LABS: BASE EXCESS VENOUS -3.2 mmol/l ((-2)-(+3)); BICARBONATE,VENOUS 21 mmol/l (19-25); O2 SATURATION VENOUS 30 % (60-80); PCO2 VENOUS 36 mmHg (41-51); PH,VENOUS 7.38 (7.31-7.41); PO2 VENOUS 24 mmHg (35-42)
--- NOTE | 2021-03-01 03:44 | CR ---
PROCEDURE INFORMATION: Exam: XR Chest Exam date and time: 03/01/2021 3:06 AM Age: 30 years old Clinical indication: Shortness of breath; Additional info: SOB, tachy covid TECHNIQUE: Imaging protocol: XR of the chest. Views: 1 view. COMPARISON: CR Chest 1V Frontal 01/19/2021 9:46 PM FINDINGS: Tubes, catheters and devices: There is a right-sided PICC with the tip in the distal superior vena cava. Lungs: Increased bilateral pulmonary opacities which may be secondary to COVID-19. Pleural spaces: Unremarkable. No pleural effusion. No pneumothorax. Heart/Mediastinum: Unremarkable. No cardiomegaly. Bones/joints: Unremarkable. IMPRESSION: Increased bilateral pulmonary opacities which may be secondary to COVID-19.
== END 2021-03-01 05:17 ==
LOC: DL.ED 02:11
DX: U07.1 COVID-19 (principal); I50.9 Heart failure, unspecified; Z86.16 Personal history of COVID-19; Z79.899 Other long term (current) drug therapy
CPT/HCPCS: 36415; 71045; 80053; 80307; 82803; 83605; 83880; 85025; 87040; 96365; 96366; 96375; 99285; J2060; J3370; J7050

== ENCOUNTER 2023-10-08 08:25 | Emergency (ER) | payer MEDICAID | END 2023-10-08 08:54 | disposition home or self-care (01) | LOC: DL.ED 08:25 | DX: J06.9 Acute upper respiratory infection, unspecified (principal); K21.9 Gastro-esophageal reflux disease without esophagitis; E66.9 Obesity, unspecified; Z86.16 Personal history of COVID-19; Z79.899 Other long term (current) drug therapy; Z68.33 Body mass index [BMI] 33.0-33.9, adult | CPT/HCPCS: 99283 ==